=== PATIENT | male | born 1985 | race Caucasian/White ===

== ENCOUNTER 2022-12-12 12:56 | Inpatient (IN) ==
[2022-12-12] MEDS ORDERED: SODIUM CHLORIDE 0.9% 1000ML 1,000 ML IV STA (13:10)
[2022-12-12] MEDS ORDERED: HYDROmorphone INJ 0.5 MG/0.5 ML SYR IV PRN ×3 (13:10→18:57)
[2022-12-12] MEDS ORDERED: ONDANSETRON INJ 2 MG/ML 2 ML VIAL IV STA (13:10)
--- NOTE | 2022-12-12 13:21 | Emergency Department Note ---
Impression & Plan Diverticulitis, Large bowel obstruction ED Provider Note NAME: ISRAEL MICHELLE AGE: 37 SEX: M : 1985 ARRIVES VIA: Walk-In INFORMANT: Patient, ED PROVIDER(S): Rajendra Conrad DO CHIEF COMPLAINT: Abdominal pain HPI: Is a 37-year-old male who presented to the emergency department for an evaluation of abdominal pain. The patient describes epigastric and supraumbilical abdominal pain which began over the last 24 hours. He states mey t he started having symptoms early this morning. The patient has not been seen by provider prior to coming emergency department today he states the pain is slowly building. He has noticed some constipation. He also had some dark emesis which he thought was bile green. He denies having any rectal bleeding. He denies having any black stool. He denies having any fever. He denies having any back pain or hematuria. ROS: See above HPI for pertinent positives & negatives. A total of 10 systems reviewed and were otherwise negative. PAST MEDICAL HISTORY: See Below PAST SURGICAL HISTORY: See Below FAMILY HISTORY: See Below SOCIAL HISTORY: See Below HOME MEDICATIONS: See Below ALLERGIES: See Below VITALS: See Below PHYSICAL EXAMINATION: GENERAL: The patient is awake and alert. The patient is very anxious and appears to be uncomfortable. EYES: The conjunctivae are clear. The pupils are round and reactive. EARS, NOSE, MOUTH AND THROAT: The nose is without any evidence of any deformity. NECK: The neck is nontender and supple. RESPIRATORY: Normal respiratory effort is noted there is no evidence of wheezing rhonchi or rales CARDIOVASCULAR: Regular rate and rhythm noted there no murmurs rubs or gallops normal S1 normal S2. GASTROINTESTINAL: The abdomen is distended and diffusely tender. There is no palpable hernia noted in the inguinal region or in the supraumbilical region. MUSCULOSKELETAL/EXTREMITIES: There is no evidence of gross deformity full range of motion is noted in the hips and shoulders. SKIN: There is no obvious evidence of any rash. There are no petechiae, pallor or cyanosis noted. NEUROLOGIC: Patient is awake alert and oriented x3 MEDICAL DECISION MAKING: The patient is a 37-year-old male who presented to the emergency department for an evaluation of abdominal pain. The patient's history and physical exam were consistent with a possible surgical abdomen. For this reason further laboratory and radiographic studies were obtained. The patient was treated with IV fluids and IV pain medication in the emergency department. He was improved on reevaluation but still had significant pain. CT of the abdomen and pelvis appears to be consistent with large bowel obstruction as well as an area that could be consistent with a mass versus diverticulitis with some microperforation. I discussed patient's condition with on-call general surgery. They have agreed to evaluate the patient for further management and recommend the patient be admitted to medicine. I discussed the patient's laboratory and radiographic studies with him. He is not actively vomiting and most of the obstruction appears to be in the large bowel. I am unsure if an NG tube would benefit him but I will defer this decision to surgery. The case was discussed with [facility]. Triage Nursing notes reviewed. Prior medical records reviewed Vital Signs: reviewed and remarkable for initial hypertension. Differential diagnosis: Etiologies such as appendicitis, diverticulitis, obstruction, inflammatory bowel disease, renal colic, PUD, biliary pathology, pancreatitis, mesenteric ischemia, aortic pathology, infections, genitourinary, UTI, perforated viscus, as well as others were entertained. ER treatment provided: See below Diagnostics interpreted by me: ECG: none Cardiac Monitoring: An order was placed for continuous cardiac monitoring. The monitor shows a rate of 110 bpm with sinus tachycardia. Laboratory studies: As stated above and show below. Imaging studies: See below. Radiographic imaging was reviewed by myself Consultation(s): I discussed this case with Gretta who is covering for general surgery. They will evaluate the patient in the emergency department. I discussed this case with Paige who is on for the [facility] hospitalist group. They will evaluate the patient in the emergency department. Past Med/Surg History Medical History Asthma Depression Hypertension Social History Smoking Status: Never smoker Tobacco Type: Cigarettes Hx Substance Use: No Preferred Language: Amharic Communication Ability: Effective Hub Lead Required: No Beliefs That Will Affect Care: None Current Living Situation: Spouse Feels Safe at Home: Yes Safety Concerns: Feels Safe At This Time Assistive Devices: None Allergies Allergies Allergy/AdvReac Type Severity Reaction Status Date / Time Sulfa (Sulfonamide Allergy Redness of Verified 12/12/22 14:49 Antibiotics) Skin Home Meds Home Medications Medication Instructions Recorded Confirmed fexofenadine 180 mg tablet 180 mg PO DAILY 12/12/22 12/12/22 glucosamine 375 ji-iesnsqflq-ozu 1 tab PO DAILY 12/12/22 12/12/22 no1 500 mg-C 15 mg-los 0.5 mg tablet (Gpzfrkvcsfe-Uxavbgedskj-WKE Complex) hydrochlorothiazide 12.5 mg capsule 12.5 mg PO QAM 12/12/22 12/12/22 losartan 100 mg tablet 100 mg PO QAM 12/12/22 12/12/22 magnesium oxide 500 mg tablet 500 mg PO DAILY 12/12/22 12/12/22 montelukast 10 mg tablet 10 mg PO QAM 12/12/22 12/12/22 multivitamin 1 tab PO QAM 12/12/22 12/12/22 sertraline 25 mg tablet 25 mg PO QAM 12/12/22 12/12/22 Results & Data (ED) Vital Signs Vital Signs - 24 hr 12/12/22 13:06 12/12/22 13:34 12/12/22 14:33 Temperature 37.2 C Temperature Source Oral Pulse Rate 120 H 109 H Pulse Rate [Right Finger] 109 H Pulse Rate from SpO2 Sensor Pulse Rhythm [Right Finger] Regular Pulse Strength [Right Finger] Normal Respiratory Rate 16 18 Respiratory Effort / Characteristics Non-Labored Non-Labored Spontaneous Respiratory Depth Normal Normal Respiratory Pattern Regular Blood Pressure 146/100 H Blood Pressure [Right Arm] 168/100 H Blood Pressure Mean 115 Blood Pressure Mean [Right Arm] 122 Blood Pressure Position [Right Arm] Lying Pulse Oximetry 99 98 Oxygen Delivery Method Room Air Room Air Sepsis Recent Fever Within 48 Hours No Sepsis New/Unexplained Change in Mental Status N/A Sepsis Action Taken by Nursing No Action Required 12/12/22 14:45 12/12/22 14:33 12/12/22 14:40 Temperature Temperature Source Pulse Rate 107 H 106 H 108 H Pulse Rate [Right Finger] Pulse Rate from SpO2 Sensor 108 H 105 H Pulse Rhythm [Right Finger] Pulse Strength [Right Finger] Respiratory Rate 21 36 H 31 H Respiratory Effort / Characteristics Respiratory Depth Respiratory Pattern Blood Pressure Blood Pressure [Right Arm] Blood Pressure Mean Blood Pressure Mean [Right Arm] Blood Pressure Position [Right Arm] Pulse Oximetry 96 99 94 Oxygen Delivery Method Sepsis Recent Fever Within 48 Hours Sepsis New/Unexplained Change in Mental Status Sepsis Action Taken by Nursing 12/12/22 14:50 12/12/22 15:00 12/12/22 15:00 Temperature Temperature Source Pulse Rate 109 H 101 H Pulse Rate [Right Finger] Pulse Rate from SpO2 Sensor 107 H 101 H Pulse Rhythm [Right Finger] Pulse Strength [Right Finger] Respiratory Rate 31 H 30 H Respiratory Effort / Characteristics Respiratory Depth Respiratory Pattern Blood Pressure 139/96 Blood Pressure [Right Arm] Blood Pressure Mean 110 Blood Pressure Mean [Right Arm] Blood Pressure Position [Right Arm] Pulse Oximetry 98 96 Oxygen Delivery Method Sepsis Recent Fever Within 48 Hours Sepsis New/Unexplained Change in Mental Status Sepsis Action Taken by Nursing 12/12/22 15:10 12/12/22 15:20 12/12/22 15:30 Temperature Temperature Source Pulse Rate 111 H 115 H Pulse Rate [Right Finger] Pulse Rate from SpO2 Sensor 112 H 112 H Pulse Rhythm [Right Finger] Pulse Strength [Right Finger] Respiratory Rate 22 21 Respiratory Effort / Characteristics Respiratory Depth Respiratory Pattern Blood Pressure 142/94 H Blood Pressure [Right Arm] Blood Pressure Mean 110 Blood Pressure Mean [Right Arm] Blood Pressure Position [Right Arm] Pulse Oximetry 93 97 Oxygen Delivery Method Sepsis Recent Fever Within 48 Hours Sepsis New/Unexplained Change in Mental Status Sepsis Action Taken by Nursing 12/12/22 15:30 12/12/22 15:40 12/12/22 15:50 Temperature Temperature Source Pulse Rate 108 H 111 H 112 H Pulse Rate [Right Finger] Pulse Rate from SpO2 Sensor 110 H 105 H 115 H Pulse Rhythm [Right Finger] Pulse Strength [Right Finger] Respiratory Rate 36 H 18 23 Respiratory Effort / Characteristics Respiratory Depth Respiratory Pattern Blood Pressure Blood Pressure [Right Arm] Blood Pressure Mean Blood Pressure Mean [Right Arm] Blood Pressure Position [Right Arm] Pulse Oximetry 97 94 96 Oxygen Delivery Method Sepsis Recent Fever Within 48 Hours Sepsis New/Unexplained Change in Mental Status Sepsis Action Taken by Residential Medications Current Medication List: was personally reviewed by me Laboratory Data Attestation: I reviewed the patient's lab results. 12/12/22 13:26 12/12/22 13:26 Lab Results 12/12/22 12/12/22 12/12/22 Range/Units 13:26 13:26 13:32 WBC 12.95 H (4.8-10.8) K/ul RBC 5.19 (4.70-6.10) M/uL Hgb 15.9 (14.0-18.0) g/dl POC Hgb 17.3 (14.0-18.0) g/dl Hct 47.4 (42.0-52.0) % POC Hct 51 (42-52) % MCV 91.3 (80.0-100.0) fL MCH 30.6 (25.0-34.0) pg MCHC 33.5 (32.0-36.0) g/dL RDW Std Deviation 45.1 (36.4-46.3) fL RDW Coeff of Zoraida 13.4 (11.5-14.5) % Plt Count 314 (130-400) K/uL MPV 10.9 (9.4-12.4) fL Immature Gran % (Auto) 0.5 % Neut % (Auto) 87.8 % Lymph % (Auto) 5.9 % [place] % (Auto) 5.3 % Eos % (Auto) 0.0 % Baso % (Auto) 0.5 % Neut # (Auto) 11.38 H (1.40-6.50) K/uL Lymph # (Auto) 0.76 L (1.2-3.4) K/uL [place] # (Auto) 0.68 H (0.11-0.59) K/uL Eos # (Auto) 0.00 (0-0.50) K/uL Baso # (Auto) 0.06 (0-0.2) K/uL Immature Gran # (Auto) 0.07 (0.01-0.20) K/uL POC Sodium 135 (135-144) mmol/L Sodium 134 L (136-145) mmol/L POC Potassium 3.6 (3.3-5.0) mmol/L Potassium 3.5 (3.5-5.1) mmol/L POC Chloride 98 L (101-112) mmol/L Chloride 97 L (98-107) mmol/L Carbon Dioxide 25 (21-32) mmol/L POC Total CO2 25 (24-31) mmol/L Anion Gap 12 H (3-11) POC Anion Gap 17.0 (16-25) mmol/L POC BUN 6 L (7-18) mg/dl BUN 7 (6-23) mg/dl Creatinine 0.83 (0.6-1.4) mg/dl POC Creatinine 0.7 (0.6-1.3) mg/dl Est Cr Clr Drug Dosing 170.5 ml/min Est GFR ( Amer) 128.5 ml/min Est GFR (Non-Af Amer) 110.8 ml/min BUN/Creatinine Ratio 8.4 L (10-20) Glucose 108 H (70-99(Fasting)) mg/dl POC Glucose (other) 118 H (70-99) mg/dl Calcium 9.5 (8.6-10.3) mg/dl POC Ioniz Calcium Sebas 1.15 (1.12-1.32) mmol/l Total Bilirubin 0.8 (0.2-1.0) mg/dl AST 24 (13-39) U/L ALT 31 (7-52) U/L Alkaline Phosphatase 83 (34-104) U/L Total Protein 8.4 H (6.0-8.3) gm/dl Albumin 4.5 (3.4-5.0) gm/dl Globulin 3.9 (2.5-4.0) gm/dl Albumin/Globulin Ratio 1.2 (0.9-2) Lipase 27 (11-82) U/L Urine Color Urine Appearance (Clear) Urine pH (4.5-7.5) Ur Specific [place] (1.000-1.030) Urine Protein (Negative) Urine Glucose (UA) (Negative) Urine Ketones (Negative) Urine Blood (Negative) Urine Nitrite (Negative) Urine Bilirubin (Negative) Urine Urobilinogen (Negative) Ur Leukocyte Esterase (Negative) Urine WBC (Auto) (0-5) /hpf Urine RBC (Auto) (0-4) /hpf U Hyaline Cast (Auto) (0-5) /lpf U Epithel Cells (Auto) (0-5) /lpf Urine Bacteria (Auto) (Negative) SARS-CoV-2, RNA, NAAT (NEGATIVE) 12/12/22 12/12/22 Range/Units 14:53 14:54 WBC (4.8-10.8) K/ul RBC (4.70-6.10) M/uL Hgb (14.0-18.0) g/dl POC Hgb (14.0-18.0) g/dl Hct (42.0-52.0) % POC Hct (42-52) % MCV (80.0-100.0) fL MCH (25.0-34.0) pg MCHC (32.0-36.0) g/dL RDW Std Deviation (36.4-46.3) fL RDW Coeff of Zoraida (11.5-14.5) % Plt Count (130-400) K/uL MPV (9.4-12.4) fL Immature Gran % (Auto) % Neut % (Auto) % Lymph % (Auto) % [place] % (Auto) % Eos % (Auto) % Baso % (Auto) % Neut # (Auto) (1.40-6.50) K/uL Lymph # (Auto) (1.2-3.4) K/uL [place] # (Auto) (0.11-0.59) K/uL Eos # (Auto) (0-0.50) K/uL Baso # (Auto) (0-0.2) K/uL Immature Gran # (Auto) (0.01-0.20) K/uL POC Sodium (135-144) mmol/L Sodium (136-145) mmol/L POC Potassium (3.3-5.0) mmol/L Potassium (3.5-5.1) mmol/L POC Chloride (101-112) mmol/L Chloride (98-107) mmol/L Carbon Dioxide (21-32) mmol/L POC Total CO2 (24-31) mmol/L Anion Gap (3-11) POC Anion Gap (16-25) mmol/L POC BUN (7-18) mg/dl BUN (6-23) mg/dl Creatinine (0.6-1.4) mg/dl POC Creatinine (0.6-1.3) mg/dl Est Cr Clr Drug Dosing ml/min Est GFR ( Amer) ml/min Est GFR (Non-Af Amer) ml/min BUN/Creatinine Ratio (10-20) Glucose (70-99(Fasting)) mg/dl POC Glucose (other) (70-99) mg/dl Calcium (8.6-10.3) mg/dl POC Ioniz Calcium [place]bas (1.12-1.32) mmol/l Total Bilirubin (0.2-1.0) mg/dl AST (13-39) U/L ALT (7-52) U/L Alkaline Phosphatase (34-104) U/L Total Protein (6.0-8.3) gm/dl Albumin (3.4-5.0) gm/dl Globulin (2.5-4.0) gm/dl Albumin/Globulin Ratio (0.9-2) Lipase (11-82) U/L Urine Color Yellow Urine Appearance Clear (Clear) Urine pH 6.5 (4.5-7.5) Ur Specific [place] 1.016 (1.000-1.030) Urine Protein Negative (Negative) Urine Glucose (UA) Negative (Negative) Urine Ketones Trace H (Negative) Urine Blood Negative (Negative) Urine Nitrite Negative (Negative) Urine Bilirubin Negative (Negative) Urine Urobilinogen Negative (Negative) Ur Leukocyte Esterase 1+ H (Negative) Urine WBC (Auto) 5-10 H (0-5) /hpf Urine RBC (Auto) 0-4 (0-4) /hpf U Hyaline Cast (Auto) 0 (0-5) /lpf U Epithel Cells (Auto) 0-5 (0-5) /lpf Urine Bacteria (Auto) Negative (Negative) SARS-CoV-2, RNA, NAAT NEGATIVE (NEGATIVE) Administered Medications Hydromorphone HCl (Hydromorphone Inj 1 Mg/Ml Syringe) 1 mg IV Q1H PRN PRN Reason: severe pain Stop: 12/26/22 18:46 Last Admin: 12/13/22 06:27 Dose: 1 mg Documented By: Admin: 12/13/22 03:47 Dose: 1 mg Documented By: Admin: 12/13/22 00:24 Dose: 1 mg Documented By: Admin: 12/12/22 21:29 Dose: 1 mg Documented By: Admin: 12/12/22 19:06 Dose: 1 mg Documented By: KASANDRA Piperacillin Sod/Tazobactam (Sod 4.5 gm/ Dextrose) 120 mls @ 30 mls/hr IV Q8H [facility]; Protocol Stop: 12/22/22 22:14 Last Admin: 12/13/22 06:27 Dose: 30 mls/hr Documented By: Infusion: 12/13/22 03:11 Dose: 0 mls/hr Documented By: Admin: 12/12/22 23:06 Dose: 30 mls/hr Documented By: DENY Ondansetron HCl (Ondansetron Inj 2 Mg/Ml 2 Ml Vial) 4 mg IV Q6H PRN PRN Reason: Nausea Stop: 01/11/23 15:57 Last Admin: 12/13/22 00:24 Dose: 4 mg Documented By: DENY Discontinued Medications Hydromorphone HCl (Hydromorphone Inj 0.5 Mg/0.5 Ml Syr) 0.5 mg IV Q15M PRN PRN Reason: Pain Stop: 12/26/22 13:09 Last Admin: 12/12/22 13:38 Dose: 0.5 mg Documented By: RECORDER OF DEEDS Hydromorphone HCl (Hydromorphone Inj 1 Mg/Ml Syringe) 1 mg IV Q15M PRN PRN Reason: Pain Stop: 12/26/22 14:28 Last Admin: 12/12/22 16:47 Dose: 1 mg Documented By: RECORDER OF DEEDS Admin: 12/12/22 15:31 Dose: 1 mg Documented By: RECORDER OF DEEDS Admin: 12/12/22 14:47 Dose: 1 mg Documented By: RECORDER OF DEEDS Sodium Chloride (Nss 1000ml) 1,000 mls @ 999 mls/hr IV .Q1H1M STA Stop: 12/12/22 14:10 Last Infusion: 12/12/22 15:35 Dose: 0 mls/hr Documented By: RECORDER OF DEEDS Admin: 12/12/22 13:36 Dose: 999 mls/hr Documented By: RECORDER OF DEEDS Piperacillin Sod/Tazobactam Sod (Zosyn) 4.5 gm in 120 mls @ 240 mls/hr IV NOW ONE Stop: 12/12/22 14:59 Last Infusion: 12/12/22 15:35 Dose: 0 mls/hr Documented By: RECORDER OF DEEDS Admin: 12/12/22 14:47 Dose: 240 mls/hr Documented By: RECORDER OF DEEDS Acetaminophen (Ofirmev) 1,000 mg in 100 mls @ 400 mls/hr IV Q8H SEGUNDO Stop: 12/15/22 18:59 Last Infusion: 12/12/22 19:34 Dose: 0 mls/hr Documented By: RECORDER OF DEEDS Admin: 12/12/22 19:07 Dose: 400 mls/hr Documented By: RECORDER OF DEEDS Ioversol (Optiray 320 100ml) 89 ml IV ONCE ONE Stop: 12/12/22 13:56 Last Admin: 12/12/22 13:55 Dose: 89 ml Documented By: LORENZA Ondansetron HCl (Ondansetron Inj 2 Mg/Ml 2 Ml Vial) 4 mg IV NOW STA Stop: 12/12/22 13:11 Last Admin: 12/12/22 13:37 Dose: 4 mg Documented By: KASANDRA Imaging Data Attestation: I personally reviewed and interpreted this imaging study as foll ows: My Impression: CT of the abdomen and pelvis was obtained in the emergency department. My interpretation is dilated large bowel, no free air, an area in the descending colon consistent with inflammation, final report below. Radiologist's Impression: Abdomen/Pelvis CT 12/12/22 13:[address] WITH IV CONTRAST CT DOSE: 1256.90 mGy.cm HISTORY: mid abd pain TECHNIQUE: Multiaxial CT images of the abdomen and pelvis were performed following the use of intravenous contrast. A dose lowering technique was utilized adhering to the principles of ALARA. COMPARISON STUDY: None. FINDINGS: A few bibasilar linear densities consistent with subsegmental atelectasis. A 1 cm sclerotic focus within the right femoral neck favors a bone island. Otherwise, no suspicious lytic or blastic osseous lesions. There is slight elevation left hemidiaphragm. Mild hepatic steatosis. No hepatic or splenic masses. The gallbladder, pancreas, adrenal glands, and kidneys are unremarkable. No hydronephrosis. No retroperitoneal lymphadenopathy. Normal caliber abdominal aorta. The main portal vein is patent. The bladder is unremarkable. No pelvic free fluid or pelvic lymphadenopathy. Multiple colonic diverticula. Focal thickening and narrowing within the distal descending colon which measures approximately 7 cm in length. There is pericolonic inflammatory change/soft tissue at this focal area of narrowing and a possible punctate focus of extraluminal gas on image 231.Proximal to this long segment of narrowing, the large bowel is distended and filled with gas and fluid. Therefore, this is consistent with a transition point for a large bowel obstruction. Therefore, this 7 cm segment of thickening/narrowing within the distal descending colon is concerning for a colonic mass. An acute on chronic diverticulitis could also have a similar appearance. The punctate focus of intraluminal gas likely represents microperforation. There is also a questionable 1.3 cm pericolonic abscess on image 262 adjacent to the thickened descending colon. Normal appendix. The cecum is distended up to 10 cm. The small bowel loops are normal in course and caliber. IMPRESSION: 1. Focal area of thickening/narrowing within a 7 cm segment of the distal descending colon with pericolonic inflammatory change and soft tissue thickening. This results in a large bowel obstruction and is therefore concerning for a colonic mass. An acute on chronic diverticulitis could also result in a similar appearance. Therefore, endoscopy recommended for further evaluation. 2. There is a punctate focus of pericolonic gas and a possible 1.3 cm pericolonic abscess adjacent to the thickened distal descending colon. Therefor e, this raises the possibility of microperforation. 3. Hepatic steatosis. No definite hepatic lesions. 4. Normal appendix. ACT 112: Negative or not required by law. Electronically signed by: Ralph Camarillo M.D. 12/12/2022 3:12 PM Discharge Plan Visit Data Chief Complaint: Abdominal Pain Stated Complaint: ABDOMINAL PAIN ED Provider: Rajendra Conrad Discharge Problem: Diverticulitis, Large bowel obstruction Patient Disposition: Admitted As Inpatient Discharge Instructions Interventions: ED Discharge Assessment Last Done: 12/12/22 18:08
[2022-12-12 13:45] LABS: iSTAT Creatinine 0.7 mg/dl (0.6-1.3); iSTAT Hemoglobin 17.3 g/dl (14.0-18.0); iSTAT Ionized Calcium 1.15 mmol/l (1.12-1.32); iSTAT Potassium 3.6 mmol/L (3.3-5.0)
[2022-12-12] MEDS ORDERED: OPTIRAY 320 100ml IV ONE (13:55)
[2022-12-12 14:00] LABS: Basophils # (auto) 0.06 K/uL (0-0.2); Basophils % (auto) 0.5 %; Hematocrit (blood only) 47.4 % (42.0-52.0); Hemoglobin 15.9 g/dl (14.0-18.0); Immature Granulocytes # (auto) 0.07 K/uL (0.01-0.20); Immature Granulocytes % (auto) 0.5 %; Lymphocytes # (auto) 0.76 K/uL (1.2-3.4); Lymphocytes % (auto) 5.9 %; Mean Corpuscular Hemoglobin 30.6 pg (25.0-34.0); Mean Corpuscular Hgb Conc 33.5 g/dL (32.0-36.0); Mean Corpuscular Volume 91.3 fL (80.0-100.0); Mean Platelet Volume 10.9 fL (9.4-12.4); Monocytes # (auto) 0.68 K/uL (0.11-0.59); Monocytes % (auto) 5.3 %; Neutrophils # (auto) 11.38 K/uL (1.40-6.50); Neutrophils % (auto) 87.8 %; Platelet Count 314 K/uL (130-400); RDW Coefficient of Variation 13.4 % (11.5-14.5); RDW Standard Deviation 45.1 fL (36.4-46.3); Red Blood Count 5.19 M/uL (4.70-6.10); White Blood Count 12.95 K/ul (4.8-10.8)
[2022-12-12 14:16] LABS: Albumin Globulin Ratio 1.2 (0.9-2); Albumin Level 4.5 gm/dl (3.4-5.0); BUN Creatinine Ratio 8.4 (10-20); Bilirubin,Total 0.8 mg/dl (0.2-1.0); Calcium 9.5 mg/dl (8.6-10.3); Creatinine Clr Calc Pharmacy 170.5 ml/min; Est GFR (African American) 128.5 ml/min; Est GFR (Non-African American) 110.8 ml/min; Globulin 3.9 gm/dl (2.5-4.0); Potassium 3.5 mmol/L (3.5-5.1); Total Protein 8.4 gm/dl (6.0-8.3)
[2022-12-12] MEDS ORDERED: PIPERACILLIN/TAZOBACTAM 4.5 GM/120 ML BAG IV ONE (14:30)
[2022-12-12] MEDS: HYDROmorphone INJ 1 MG/ML SYRINGE IV PRN ×5 (14:47→21:29)
--- NOTE | 2022-12-12 15:13 | CT Scan Report ---
ABDOMEN AND PELVIS CT WITH IV CONTRAST CT DOSE: 1256.90 mGy.cm HISTORY: mid abd pain TECHNIQUE: Multiaxial CT images of the abdomen and pelvis were performed following the use of intrave nous contrast. A dose lowering technique was utilized adhering to the principles of ALARA. COMPARISON STUDY: None. FINDINGS: A few bibasilar linear densities consistent with subsegmental atelectasis. A 1 cm sclerotic focus within the right femoral neck favors a bone island. Otherwise, no suspicious lytic or blastic osseous lesions. There is slight elevation left hemidiaphragm. Mild hepatic steatosis. No hepatic or splenic masses. The gallbladder, pancreas, adrenal glands, and kidneys are unremarkable. No hydroneph rosis. No retroperitoneal lymphadenopathy. Normal caliber abdominal aorta. The main portal vein is pa tent. The bladder is unremarkable. No pelvic free fluid or pelvic lymphadenopathy. Multiple colonic d iverticula. Focal thickening and narrowing within the distal descending colon which measures approxim ately 7 cm in length. There is pericolonic inflammatory change/soft tissue at this focal area of narr owing and a possible punctate focus of extraluminal gas on image 231.Proximal to this long segment of narrowing, the large bowel is distended and filled with gas and fluid. Therefore, this is consistent with a transition point for a large bowel obstruction. Therefore, this 7 cm segment of thickening/na rrowing within the distal descending colon is concerning for a colonic mass. An acute on chronic dive rticulitis could also have a similar appearance. The punctate focus of intraluminal gas likely repres ents microperforation. There is also a questionable 1.3 cm pericolonic abscess on image 262 adjacent to the thickened descending colon. Normal appendix. The cecum is distended up to 10 cm. The small bow el loops are normal in course and caliber. IMPRESSION: 1. Focal area of thickening/narrowing within a 7 cm segment of the distal descending colon with peric olonic inflammatory change and soft tissue thickening. This results in a large bowel obstruction and is therefore concerning for a colonic mass. An acute on chronic diverticulitis could also result in a similar appearance. Therefore, endoscopy recommended for further evaluation. 2. There is a punctate focus of pericolonic gas and a possible 1.3 cm pericolonic abscess adjacent to the thickened distal descending colon. Therefore, this raises the possibility of microperforation. 3. Hepatic steatosis. No definite hepatic lesions. 4. Normal appendix. ACT 112: Negative or not required by law. Electronically signed by: Ralph Camarillo M.D. 12/12/2022 3:12 PM
--- NOTE | 2022-12-12 15:57 | Surgery Consultation ---
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 In the ER today a CT a/p was obtained that revealed "an area of thickening/narrowing within a 7 cm segment of the distal descending colon with pericolonic inflammatory change and soft tissue thickening. This results in a large bowel obstruction and is therefore concerning for a colonic mass vs an acute on chronic diverticulitis appearance. There is also a punctate focus of pericolonic gas with concern for a 1.3 cm pericolonic abscess raising the possibility of microperforation." WBC 12. Vitals show tachycardia to 110-120s, afebrile with stable blood pressures. On exam abdomen is soft, distended, with generalized discomfort to palpation worse in mid/upper abd and llq. Would like to give patient a trial of conservative management and supportive care with IVF hydration, IV abx, and bowel rest. GI may be on board given concern for colonic mass and large bowel obstruction picture for their input. We will keep a close eye on patient should he have any changes in his clinical status. 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 Patient reports the pain started in his upper abdomen acutely at 6:30 this AM. This was associated with bouts of nausea/vomiting. At its worst, the pain rates a 10/10 and is currently a 7/10 after some pain meds in the ER. Pain is starting to migrate some to the LLQ. He reports a history of on and off pain in the LLQ over the last 2 years he has not sought medical attention for. In the ER today a CT a/p was obtained that revealed "an area of thickening/narrowing within a 7 cm segment of the distal descending colon with pericolonic inflammatory change and soft tissue thic kening. This results in a large bowel obstruction and is therefore concerning for a colonic mass vs an acute on chronic diverticulitis appearance. There is also a punctate focus of pericolonic gas with concern for a 1.3 cm pericolonic abscess raising the possibility of microperforation." Patient states he never had a colonoscopy or an episode of diverticulitis before. No personal or family history of colon ca. His mother and father both had diverticulitis and he believes one of them had surgical resection in the past. He last had some water around 12:30 this AM and last ate pizza for dinner yesterday night. He is not passing much flatus and last BM was yesterday and was normal. He has no prior abdominal surgical history. Allergies Allergy/AdvReac Type Severity Reaction Status Date / Time Sulfa (Sulfonamide Allergy Redness of Verified 12/12/22 14:49 Antibiotics) Skin Home Medications Medication Instructions Recorded Confirmed Type fexofenadine 180 mg tablet 180 mg PO DAILY 12/12/22 12/12/22 History glucosamine 375 bj-sgrifokow-fkt 1 tab PO DAILY 12/12/22 12/12/22 History no1 500 mg-C 15 mg-los 0.5 mg tablet (Sonyubsasmf-Tbfshyevhot-XPR Complex) hydrochlorothiazide 12.5 mg capsule 12.5 mg PO QAM 12/12/22 12/12/22 History losartan 100 mg tablet 100 mg PO QAM 12/12/22 12/12/22 History magnesium oxide 500 mg tablet 500 mg PO DAILY 12/12/22 12/12/22 History montelukast 10 mg tablet 10 mg PO QAM 12/12/22 12/12/22 History multivitamin 1 tab PO QAM 12/12/22 12/12/22 History sertraline 25 mg tablet 25 mg PO QAM 12/12/22 12/12/22 History Patient History Medical History Asthma Depression Hypertension Social History Smoking Status: Former smoker Tobacco Type: Cigarettes Feels Safe at Home: Yes Review of Systems Constitutional: + sweats; no fever and no chills Respiratory: no dyspnea Cardiovascular: no chest pain Gastrointestinal: + abdominal pain, + bloating, + nausea and + vomiting Physical Exam Physical Exam: awake/alert Constitutional: mildly ill appearing Respiratory: normal respiratory effort; no respiratory distress Cardiovascular: Rate/Rhythm: + tachycardic Gastrointestinal (Abdomen): Inspection/Auscultation: + abdomen distended Percussion/Palpation: + abdomen tender (generalized discomfort but worse in supra umbilical and LLQ regions) and abdomen soft; no guarding and abdomen not rigid Results & Data Vital Signs (Past 12 Hours) Vital Signs Temp Pulse Pulse Resp BP BP Pulse Ox 12/12/22 14:45 107 H 21 96 12/12/22 14:33 109 H 12/12/22 13:34 109 H 18 168/100 H 98 12/12/22 13:06 37.2 C 120 H 16 146/100 H 99 O2 Del Method 12/12/22 14:45 12/12/22 14:33 12/12/22 13:34 Room Air 12/12/22 13:06 Room Air Diagnostic Findings ABDOMEN AND PELVIS CT WITH IV CONTRAST CT DOSE: 1256.90 mGy.cm HISTORY: mid abd pain TECHNIQUE: Multiaxial CT images of the abdomen and pelvis were performed following the use of intravenous contrast. A dose lowering technique was utilized adhering to the principles of ALARA. COMPARISON STUDY: None. FINDINGS: A few bibasilar linear densities consistent with subsegmental atelectasis. A 1 cm sclerotic focus within the right femoral neck favors a bone island. Otherwise, no suspicious lytic or blastic osseous lesions. There is slight elevation left hemidiaphragm. Mild hepatic steatosis. No hepatic or splenic masses. The gallbladder, pancreas, adrenal glands, and kidneys are unremarkable. No hydronephrosis. No retroperitoneal lymphadenopathy. Normal caliber abdominal aorta. The main portal vein is patent. The bladder is unremarkable. No pelvic free fluid or pelvic lymphadenopathy. Multiple colonic diverticula. Focal thickening and narrowing within the distal descending colon which measures approximately 7 cm in length. There is pericolonic inflammatory change/soft tissue at this focal area of narrowing and a possible punctate focus of extraluminal gas on image 231.Proximal to this long segment of narrowing, the large bowel is distended and filled with gas and fluid. Therefore, this is consistent with a transition point for a large bowel obstruction. Therefore, this 7 cm segment of thickening/narrowing within the distal descending colon is concerning for a colonic mass. An acute on chronic diverticulitis could also have a similar appearance. The punctate focus of intraluminal gas likely represents microperforation. There is also a questionable 1.3 cm pericolonic abscess on image 262 adjacent to the thickened descending colon. Normal appendix . The cecum is distended up to 10 cm. The small bowel loops are normal in course and caliber. IMPRESSION: 1. Focal area of thickening/narrowing within a 7 cm segment of the distal descending colon with pericolonic inflammatory change and soft tissue thickening. This results in a large bowel obstruction and is therefore concerning for a colonic mass. An acute on chronic diverticulitis could also result in a similar appearance. Therefore, endoscopy recommended for further evaluation. 2. There is a punctate focus of pericolonic gas and a possible 1.3 cm pericolonic abscess adjacent to the thickened distal descending colon. Therefore, this raises the possibility of microperforation. 3. Hepatic steatosis. No definite hepatic lesions. 4. Normal appendix. ACT 112: Negative or not required by law. Electronically signed by: Ralph Camarillo M.D. 12/12/2022 3:12 PM PG Care Time/CCT Total # of Minutes Spent Total Time Spent with Patient: Total time spent is greater than 50% in coordination of care (as documented) at patient's floor/unit and/or counseling patient: Coding Level of Care Code 82498 IN/OBS CONSULT LVL 4,60M Diagnoses Diverticulitis K57.92 Large bowel obstruction K56.609
[2022-12-12 15:58] LABS: Appearance Urine Clear (Clear); Bacteria Urine Automated Negative (Negative); Bilirubin Urine Negative (Negative); Blood Urine Negative (Negative); Cast Urine Automated 0 /lpf (0-5); Color Urine Yellow; Epithelial Cell Urine Auto 0-5 /lpf (0-5); Glucose Urine UA Negative (Negative); Ketones Urine Trace (Negative); Leukocyte Esterase Urine 1+ (Negative); Nitrite Urine Negative (Negative); Protein Urine Negative (Negative); RBC Urine Automated 0-4 /hpf (0-4); Specific Gravity Urine 1.016 (1.000-1.030); Urobilinogen Urine Negative (Negative); pH Urine 6.5 (4.5-7.5)
[2022-12-12] MEDS ORDERED: MAGNESIUM HYDROXIDE SUSP 30 ML UDC PO PRN (15:58)
[2022-12-12] MEDS ORDERED: POLYETHYLENE (MIRALAX) 17 GM PACK PO PRN (15:58)
[2022-12-12] MEDS ORDERED: ALUMINUM/MAGNESIUM SUSP 30 ML UDC PO PRN (15:58)
[2022-12-12] MEDS ORDERED: ACETAMINOPHEN 325 MG TAB PO PRN (15:58)
[2022-12-12] MEDS ORDERED: ONDANSETRON INJ 2 MG/ML 2 ML VIAL IV PRN (15:58)
--- NOTE | 2022-12-12 16:06 | History & Physical Report ---
Date of Service December 12, 2022 Assessment & Plan (1) Large bowel obstruction: (2) Diverticulitis: (3) Hypertension: (4) Depression: (5) Asthma: Plan 37 year old presents to the ED with acute abdominal pain that started this AM with emesis x1; abdomen/pelvic CT revealed large bowel obstruction with concerns for colonic mass; 1.3 cm microperforation, along with acute on chronic diverticulitis. Empirically treat with IV abx. GI and general surgery consults pending. NPO for bowel rest. Additional PMH Large Bowel Obstruction: Diverticulitis: Abdominal/Pelvis CT: 7 cm segment of the distal descending colon with pericolonic inflammatory change and soft tissue thickening. Large bowel obstruction and concern for colonic mass. Acute on chronic diverticulitis could also result in a similar appearance. Endoscopy recommended. Possible 1.3 cm pericolonic abscess adjacent to the thickened distal descending colon. Possibility of microperforation. General surgery consultation placed GI consult placed Empirically treat with Zosyn; readjust as necessary by general surgery or based on cultures pain control with Dilaudid; reassess pain control in AM. UA pending HTN: Takes Losartan and HCTZ; continue BP elevated in ED: suspect related to pain Asthma: Takes Singulair and Alexandra; continue Depression: Takes Sertraline; continue Disposition: PCP: Dr. Hall Code Status: Full Code VTE Prophylaxis: Teds/SCDs for now I spent a total of 87 minutes coordinating, documenting, and providing care for this patient excluding time spent in the performance of separately billed services. All of the aforementioned completed while collaborating with the assigned attending physician for a full treatment plan. Please see their addendum for further details. History of Present Illness Chief Complaint: abdominal pain Primary Care Provider: Arthur Farris MD Mr. Pierson is a 37-year-old male that presented to the [facility] after experiencing an acute onset of abdominal pain that started acutely this morning at 0600 following abdominal distention. Around 1230 he started vomiting bile. He did not have a bowel movement today. LBM yesterday. Abdominal and pelvic CT revealed large 7 cm distal descending large bowel obstruction; with possible colonic mass. Additionally a 1.3 cm pericolonic abscess adjacent to the thickened distal descending colon suggesting microperforation. Discussed with general surgery who will evaluate him. Discussed with GI as well ; given the inflammation with microperforation suspect GI eval will be necessary with large bowel obstruction once patient has received abx and bowel rest. Pt father and mother both have had diverticulitis. Pt has had wisdom teeth removal with no anesthesia complications. Additional PMH includes HTN (On Losartan and HCTZ), asthma, and depression. Patient denies COSTELLO, dizziness, visual or auditory changes, urinary changes, appetite changes, recent falls or trauma. Patient sitting upright in his hospital bed in apparent distress with diaphoresis. He is tachycardic and hypoxic; placed on 2LNC with SPO2 improvement. Patient will be admitted for further evaluation and management. Please see A/P for further details. Allergies Allergy/AdvReac Type Severity Reaction Status Date / Time Sulfa (Sulfonamide Allergy Redness of Verified 12/12/22 14:49 Antibiotics) Skin Home Medications Medication Instructions Recorded Confirmed Type fexofenadine 180 mg tablet 180 mg PO DAILY 12/12/22 12/12/22 History glucosamine 375 hk-wgnljkkam-lsw 1 tab PO DAILY 12/12/22 12/12/22 History no1 500 mg-C 15 mg-los 0.5 mg tablet (Smtzfdwovau-Mgyskzkcjhe-SVN Complex) hydrochlorothiazide 12.5 mg capsule 12.5 mg PO QAM 12/12/22 12/12/22 History losartan 100 mg tablet 100 mg PO QAM 12/12/22 12/12/22 History magnesium oxide 500 mg tablet 500 mg PO DAILY 12/12/22 12/12/22 History montelukast 10 mg tablet 10 mg PO QAM 12/12/22 12/12/22 History multivitamin 1 tab PO QAM 12/12/22 12/12/22 History sertraline 25 mg tablet 25 mg PO QAM 12/12/22 12/12/22 History Past Med/Surg History Medical History Asthma Depression Hypertension Social History Smoking Status: Never smoker Tobacco Type: Cigarettes Hx Substance Use: No Preferred Language: Kinyarwanda Communication Ability: Effective Scrap Worker Required: No Beliefs That Will Affect Care: None Current Living Situation: Spouse Feels Safe at Home: Yes Safety Concerns: Feels Safe At This Time Assistive Devices: None Review of Systems Review of Systems: Neuro: (-) Falls, trauma, slurred speech HEENT: (-) COSTELLO, dizziness, dysphagia, visual or auditory changes CV: (-) CP, palpitations, swelling Resp: (-) SOB GI: (-) appetite changes, (+) N/V (-) diarrhea, (-) bowel changes : (-) urinary changes Skin: (-) rashes Psych: (-) anxiety, depression Physical Exam Physical Exam: Neuro: AAOx4, PERRLA, no aphagia, memory changes, CNII-XII grossly intact HEENT: head normocephalic, moist mucus membranes CV: S1/S2, (-) M/G/R, (-) edema, cap refill < 3 seconds euvolemic on exam Resp: Lungs CTA in all [place]. On 2LNC GI: Abdomen distended and tender LLQ. Ax4 bowel sounds, (-) CVA tenderness Musculoskeletal: 5/5 B/L UE strength, 5/5 B/L LE strength. No gait disturbance Skin: (-) rashes , (+) erythema on chest from pruritis (not new) Psych: euthymic mood Results & Data Results & Data Vital Signs (Past 12 Hours) Vital Signs Temp Pulse Pulse Resp BP BP Pulse Ox 12/12/22 15:50 112 H 23 96 12/12/22 15:40 111 H 18 94 12/12/22 15:30 108 H 36 H 97 12/12/22 15:30 142/94 H 12/12/22 15:20 115 H 21 97 12/12/22 15:10 111 H 22 93 12/12/22 15:00 101 H 30 H 96 12/12/22 15:00 139/96 12/12/22 14:50 109 H 31 H 98 12/12/22 14:40 108 H 31 H 94 12/12/22 14:33 106 H 36 H 99 12/12/22 14:45 107 H 21 96 12/12/22 14:33 109 H 12/12/22 13:34 109 H 18 168/100 H 98 12/12/22 13:06 37.2 C 120 H 16 146/100 H 99 O2 Del Method 12/12/22 15:50 12/12/22 15:40 12/12/22 15:30 12/12/22 15:30 12/12/22 15:20 12/12/22 15:10 12/12/22 15:00 12/12/22 15:00 12/12/22 14:50 12/12/22 14:40 12/12/22 14:33 12/12/22 14:45 12/12/22 14:33 12/12/22 13:34 Room Air 12/12/22 13:06 Room Air Laboratory Results Short CBC 12/12/22 Range/Units 13:26 WBC 12.95 H (4.8-10.8) K/ul Hgb 15.9 (14.0-18.0) g/dl Hct 47.4 (42.0-52.0) % Plt Count 314 (130-400) K/uL BMP 12/12/22 13:26 Sodium 134 L Potassium 3.5 Chloride 97 L Carbon Dioxide 25 BUN 7 Creatinine 0.83 Glucose 108 H Calcium 9.5 Liver Function 12/12/22 Range/Units 13:26 Total Bilirubin 0.8 (0.2-1.0) mg/dl AST 24 (13-39) U/L ALT 31 (7-52) U/L Alkaline Phosphatase 83 (34-104) U/L Albumin 4.5 (3.4-5.0) gm/dl Urine 12/12/22 Range/Units 14:54 Urine Color Yellow Urine Appearance Clear (Clear) Urine pH 6.5 (4.5-7.5) Ur Specific [place] 1.016 (1.000-1.030) Urine Protein Negative (Negative) Urine Glucose (UA) Negative (Negative) Diagnostic Findings Abdomen/Pelvis CT 12/12/22 13:[address] WITH IV CONTRAST CT DOSE: 1256.90 mGy.cm HISTORY: mid abd pain TECHNIQUE: Multiaxial CT images of the abdomen and pelvis were performed following the use of intravenous contrast. A dose lowering technique was utilized adhering to the principles of ALARA. COMPARISON STUDY: None. FINDINGS: A few bibasilar linear densities consistent with subsegmental atelectasis. A 1 cm sclerotic focus within the right femoral neck favors a bone island. Otherwise, no suspicious lytic or blastic osseous lesions. There is slight elevation left hemidiaphragm. Mild hepatic steatosis. No hepatic or splenic masses. The gallbladder, pancreas, adrenal glands, and kidneys are unremarkable. No hydronephrosis. No retroperitoneal lymphadenopathy. Normal caliber abdominal aorta. The main portal vein is patent. The bladder is unremarkable. No pelvic free fluid or pelvic lymphadenopathy. Multiple colonic diverticula. Focal thickening and narrowing within the distal descending colon which measures approximately 7 cm in length. There is pericolonic inflammatory change/soft tissue at this focal area of narrowing and a possible punctate focus of extraluminal gas on image 231.Proximal to this long segment of narrowing, the large bowel is distended and filled with gas and fluid. Therefore, this is consistent with a transition point for a large bowel obstruction. Therefore, this 7 cm segment of thickening/narrowing within the distal descending colon is concerning for a colonic mass. An acute on chronic diverticulitis could also have a similar appearance. The punctate focus of intraluminal gas likely represents microperforation. There is also a questionable 1.3 cm pericolonic abscess on image 262 adjacent to the thickened descending colon. Normal appendix. The cecum is distended up to 10 cm. The small bowel loops are normal in course and caliber. IMPRESSION: 1. Focal area of thickening/narrowing within a 7 cm segment of the distal descending colon with pericolonic inflammatory change and soft tissue th ickening. This results in a large bowel obstruction and is therefore concerning for a colonic mass. An acute on chronic diverticulitis could also result in a similar appearance. Therefore, endoscopy recommended for further evaluation. 2. There is a punctate focus of pericolonic gas and a possible 1.3 cm pericolonic abscess adjacent to the thickened distal descending colon. Therefore, this raises the possibility of microperforation. 3. Hepatic steatosis. No definite hepatic lesions. 4. Normal appendix. ACT 112: Negative or not required by law. Electronically signed by: Ralph Camarillo M.D. 12/12/2022 3:12 PM Code Status & VTE Plan Code Status Full Code in the event of cardiac or respiratory arrest VTE Prophylaxis Plan VTE Prophylaxis will be ordered: Yes Supervising Physician Co-Signing Physician Notes Patient was seen and examined independently. Chart reviewed. Case discussed with JENNY
[2022-12-12] MEDS ORDERED: ACETAMINOPHEN 1,000 MG/100 ML VIAL IV SCH (19:00)
[2022-12-12] MEDS ORDERED: hydrALAZINE HCL 20 MG/ML VIAL IV PRN (22:03)
[2022-12-12] MEDS: PIPERACILLIN/TAZOBACTAM 4.5 GM in DEXTROSE 5% 100 ML IV SCH (23:06)
[2022-12-13] MEDS: HYDROmorphone INJ 1 MG/ML SYRINGE IV PRN ×3 (00:24→06:27)
[2022-12-13] MEDS: PIPERACILLIN/TAZOBACTAM 4.5 GM in DEXTROSE 5% 100 ML IV SCH ×3 (06:27→22:14)
[2022-12-13 06:48] LABS: Hemoglobin 14.6 g/dl (14.0-18.0); Mean Corpuscular Hgb Conc 33.2 g/dL (32.0-36.0); Mean Corpuscular Volume 93.4 fL (80.0-100.0); Mean Platelet Volume 10.7 fL (9.4-12.4); Platelet Count 267 K/uL (130-400); RDW Coefficient of Variation 13.6 % (11.5-14.5); RDW Standard Deviation 46.5 fL (36.4-46.3); Red Blood Count 4.71 M/uL (4.70-6.10); White Blood Count 7.77 K/ul (4.8-10.8)
[2022-12-13 07:00] LABS: Albumin Globulin Ratio 1.1 (0.9-2); BUN Creatinine Ratio 10.1 (10-20); Bilirubin,Total 0.9 mg/dl (0.2-1.0); Calcium 9.4 mg/dl (8.6-10.3); Creatinine Clr Calc Pharmacy 158.2 ml/min; Est GFR (African American) 124.8 ml/min; Est GFR (Non-African American) 107.7 ml/min; Globulin 3.5 gm/dl (2.5-4.0); Magnesium 1.9 mg/dl (1.7-2.4); Potassium 3.5 mmol/L (3.5-5.1); Total Protein 7.5 gm/dl (6.0-8.3)
[2022-12-13 07:26] LABS: Prothrombin Time 10.9 Seconds (9.0-12.0)
--- NOTE | 2022-12-13 07:40 | Gastrointestinal Consultation ---
Date of Consultation December 13, 2022 Assessment & Plan (1) Diverticulitis: Symptoms and CT findings are most consistent with diverticulitis Plan IV antibiotics, may change to p.o. when clinically improved and ready for discharge. Total of 10 days Clear liquids p.o. If any acute worsening of clinical status please contact surgery immediately. Plan for outpatient colonoscopy in 6 to 8 weeks. Our office will contact the patient to arrange Supervising Physician Co-Signing Physician Notes I performed a history and physical examination of the patient today, including specifically on physical exam - soft abdomen. I have discussed the patient's management with the advanced practitioner. Please refer to the nurse practitioner's note for the documented findings and plan of care. Patient with colonic obstruction, Diverticulitis related Vs Malignancy, small focus of microperforation. This is a surgical case and there is no much role for GI here as attempting colonoscopy would cause a perforation. Treat conservatively for now with IV ABx. Once he moves his bowel then can start diet. Plan for colonoscopy as OP in 4 weeks. If his condition worsens then needs surgical resection regardless of the etiology. Recall GI if needed. History of Present Illness Reason for Consultation: 1.3 cm microperf/Lg SBO Requesting Physician: Paige Vasques NP Attending Physician: Iban Crouch MD History of Present Illness Mr. Erasto Estrada is a 37 yr old male pt of Dr. Farris w a hx of asthma, arthritis, HTN and migraines. He presented to the ED yesterday for abdominal pain. 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 He tells me that for approximately 2 years, he has had intermittent left lower quadrant pain typically cramping and pressure lasting about a day at a time then goes for few months with no symptoms. Yesterday, midday, he had a sudden onset of this pain worse than usual which did not resolve quickly accompanied with chills so he presented to the emergency department. CTAP on arrival w a 7cm area distal descending colon inflammation and a possible 1.3 cm pericolonic abscess. He was evaluated by surgery who suggested conservative management of diverticulitis. He carries a fam hx of diverticulitis - father and mother. He has not previously undergone colonoscopy. Allergies Allergy/AdvReac Type Severity Reaction Status Date / Time Sulfa (Sulfonamide Allergy Redness of Verified 12/12/22 14:49 Antibiotics) Skin Home Medications Medication Instructions Recorded Confirmed Type fexofenadine 180 mg tablet 180 mg PO DAILY 12/12/22 12/12/22 History glucosamine 375 ie-ylwpuyclh-bkk 1 tab PO DAILY 12/12/22 12/12/22 History no1 500 mg-C 15 mg-los 0.5 mg tablet (Lcepngmtobh-Ycclyxtbrut-PCJ Complex) hydrochlorothiazide 12.5 mg capsule 12.5 mg PO QAM 12/12/22 12/12/22 History losartan 100 mg tablet 100 mg PO QAM 12/12/22 12/12/22 History magnesium oxide 500 mg tablet 500 mg PO DAILY 12/12/22 12/12/22 History montelukast 10 mg tablet 10 mg PO QAM 12/12/22 12/12/22 History multivitamin 1 tab PO QAM 12/12/22 12/12/22 History sertraline 25 mg tablet 25 mg PO QAM 12/12/22 12/12/22 History Patient History Medical History Asthma Depression Hypertension Social History Smoking Status: Never smoker Tobacco Type: Cigarettes Hx Substance Use: No Preferred Language: Kittitian Communication Ability: Effective Daycare Provider Required: No Beliefs That Will Affect Care: None Current Living Situation: Spouse Feels Safe at Home: Yes Safety Concerns: Feels Safe At This Time Assistive Devices: None Review of Systems Review of Systems: ROS: Gen: Denies weakness, fevers, weight loss Eyes: No eye redness, or pain, no recent vision changes Resp: No SOB, no cough Cardio: No palpitations/irregular beats, no chest pain GI: As per HPI, otherwise (-) : Denies pain on urination Skin: No jaundice, itching or new rashes Physical Exam 2 Constitutional: WD/WN, vitals as above + overweight Eyes: PERRL, conjunctivae normal, anicteric sclerae ENMT: external ear and nose normal, oropharynx normal Neck: trachea midline, no thyromegaly Respiratory: normal respiratory effort, lungs clear to auscultation Cardiovascular: RRR, no murmur, no edema Gastrointestinal (Abdomen): Mild left lower quadrant abdominal tenderness on deep palpation otherwise normal. Active bowel sounds present throughout. No obvious distention Musculoskeletal: no cyanosis or clubbing, extremities motor strength 5/5 Skin: no rashes, warm and dry Neurologic: PERRL, EOMI, accommodation nl, no face palsy, no dysarthria Psychiatric: A+Ox3, euthymic affect Lymphatic: no cervical or axillary lymphadenopathy Results & Data Vital Signs (Past 12 Hours) Vital Signs Temp Pulse Pulse Resp BP Pulse Ox O2 Del Method 12/13/22 03:56 36.9 C 87 18 127/85 96 Room Air 12/12/22 23:17 78 12/12/22 23:17 36.8 C 84 18 129/87 98 Room Air, Nasal Cannula 12/12/22 21:55 37.0 C 92 H 12 171/128 H 97 Nasal Cannula O2 Flow Rate 12/13/22 03:56 12/12/22 23:17 12/12/22 23:17 2 12/12/22 21:55 2 Diagnostic Findings CTAP w IV contrast 12/12/22: 1. Focal area of thickening/narrowing within a 7 cm segment of the distal descending colon with pericolonic inflammatory change and soft tissue thickening. This results in a large bowel obstruction and is therefore concerning for a colonic mass. An acute on chronic diverticulitis could also result in a similar appearance. Therefore, endoscopy recommended for further evaluation. 2. There is a punctate focus of pericolonic gas and a possible 1.3 cm pericolonic abscess adjacent to the thickened distal descending colon. Therefore, this raises the possibility of microperforation. 3. Hepatic steatosis. No definite hepatic lesions. 4. Normal appendix.
--- NOTE | 2022-12-13 08:34 | Surgery Progress Note ---
Date of Service December 13, 2022 Assessment & Plan (1) Diverticulitis: Plan: Likely acute diverticulitis rather than a mass although he will need a colonoscopy in 6 to 8 weeks. Improving with conservative management. I will keep him n.p.o. with ice chips yet today. White blood cell count down to 7000 and vitals are much improved. We will continue to follow along closely. (2) Large bowel obstruction: Admission and Anticipated Discharge Date Admission Date: December 12, 2022 Subjective Patient seen. Still with some lower abdominal discomfort but much improved from yesterday. Physical Exam Physical Exam: Alert. No acute distress Constitutional: WD/WN, vitals as above no acute distress and not ill appearing Eyes: PERRL, conjunctivae normal, anicteric sclerae EOM intact bilaterally ENMT: external ear and nose normal, oropharynx normal Ears: no hearing impairment Neck: trachea midline, no thyromegaly Respiratory: normal respiratory effort; no respiratory distress and does not use accessory muscles Cardiovascular: Rate/Rhythm: regular rate and regular rhythm Gastrointestinal (Abdomen): Soft. Mild suprapubic and left lower quadrant tenderness. No peritonitis Skin: no rashes, warm and dry Psychiatric: Orientation: alert, oriented x 3 and cooperative Results & Data Vital Signs (Past 12 Hours) Vital Signs Temp Pulse Pulse Resp BP Pulse Ox O2 Del Method 12/13/22 08:10 36.9 C 83 16 145/56 H 98 Nasal Cannula 12/13/22 03:56 36.9 C 87 18 127/85 96 Room Air 12/12/22 23:17 78 12/12/22 23:17 36.8 C 84 18 129/87 98 Room Air, Nasal Cannula 12/12/22 21:55 37.0 C 92 H 12 171/128 H 97 Nasal Cannula O2 Flow Rate 12/13/22 08:10 2 12/13/22 03:56 12/12/22 23:17 12/12/22 23:17 2 12/12/22 21:55 2 PG Care Time/CCT Total # of Minutes Spent Total Time Spent with Patient: Total time spent is greater than 50% in coordination of care (as documented) at patient's floor/unit and/or counseling patient: Coding Level of Care Code 18712 SUB INP/OBS CARE 2/35MIN Diagnoses Diverticulitis K57.92 Large bowel obstruction K56.609
[2022-12-13] MEDS: ACETAMINOPHEN 1,000 MG/100 ML VIAL IV SCH ×3 (08:47→22:12)
[2022-12-13] MEDS ORDERED: ENALAPRILAT 0.625 MG in SYRINGE 9.5 ML IV SCH (09:00)
[2022-12-13] MEDS ORDERED: ENALAPRILAT 0.625 MG in DEXTROSE 5% 25 ML IV SCH (09:00)
[2022-12-13] MEDS ORDERED: MoRPHine SULFATE 2 MG/ML CARP IV PRN (09:56)
[2022-12-13] MEDS: LACTATED RINGER'S 1,000 ML IV SCH ×2 (11:42→19:23)
[2022-12-13] MEDS ORDERED: HYDROmorphone INJ 0.5 MG/0.5 ML SYR IV PRN (16:29)
--- NOTE | 2022-12-13 16:33 | Hospitalist Progress Note ---
Date of Service December 13, 2022 Assessment & Plan (1) Large bowel obstruction: (2) Diverticulitis: (3) Hypertension: (4) Depression: (5) Asthma: Plan 37 year old presents to the ED with acute abdominal pain that started this AM with emesis x1; abdomen/pelvic CT revealed large bowel obstruction with concerns for colonic mass; 1.3 cm microperforation, along with acute on chronic diverticulitis. Empirically treat with IV abx. GI and general surgery consults pending. NPO for bowel rest. Additional PMH Large Bowel Obstruction: Diverticulitis: Abdominal/Pelvis CT: 7 cm segment of the distal descending colon with pericolonic inflammatory change and soft tissue thickening. Large bowel obstruction and concern for colonic mass. Acute on chronic diverticulitis could also result in a similar appearance. Endoscopy recommended. Possible 1.3 cm pericolonic abscess adjacent to the thickened distal descending colon. Possibility of microperforation. Surgery on board; continue with conservative management. will need colonoscopy in 6-8 weeks. Discussed with GI; continue conservative treatment with IV antibiotics. Plan for colonoscopy as outpatient in 4 weeks. Continue on Zosyn IV fluids Started on IV Tylenol and Dilaudid as needed HTN: Takes Losartan and HCTZ; continue while inpatient. BP elevated in ED: suspect related to pain Asthma: Takes Singulair and Alexandra; continue Depression: Takes Sertraline; continue Disposition: PCP: Dr. Hall Code Status: Full Code VTE Prophylaxis: Teds/SCDs for now Please note the above document was generated using voice recognition software. It may contain grammatical, syntax or spelling errors. Any formal questions or concerns about the content, text or information contained within the body of this dictation should be directly addressed to the provider for clarification Admission and Anticipated Discharge Date Admission Date: December 12, 2022 Subjective Patient seen and examined at bedside. He reports abdominal bloating. No nausea or vomiting. He has not passed gas. Review of Systems Review of Systems: All systems reviewed & are unremarkable except as noted in Subjective Physical Exam Physical Exam: Constitutional: WD/WN, vitals as above, NAD, sitting up in bed, pleasant, conversing easily Respiratory: normal respiratory effort, lungs clear to auscultation, no wheeze, rales, rhonchi. Normal insp/exp effort, no accessory muscle use Cardiovascular: RRR, no murmur, no edema Vessels: no JVD or carotid bruit Chest: normal inspection of chest Abdomen: Abdominal slightly bloated. hypoactive bowel sounds. Musculoskeletal: no cyanosis or clubbing, extremities motor strength 5/5 Skin: no rashes, warm and dry normal turgor Neurologic: PERRL, EOMI, accommodation nl, no face palsy, no dysarthria CN's II- XI intact bilaterally and moves all extremities Psychiatric: A+Ox3, euthymic affect Lymphatic: no cervical or axillary lymphadenopathy : deferred Results & Data Results & Data Vital Signs (Past 12 Hours) Vital Signs Temp Pulse Pulse Resp BP Pulse Ox O2 Del Method 12/13/22 08:00 93 H 12/13/22 12:23 37.1 C 82 16 137/85 95 Nasal Cannula 12/13/22 08:10 36.9 C 83 16 145/56 H 98 Nasal Cannula O2 Flow Rate 12/13/22 08:00 12/13/22 12:23 2 12/13/22 08:10 2 Laboratory Results Laboratory Results WBC 7.77 K/ul (4.8-10.8) 12/13/22 05:59 RBC 4.71 M/uL (4.70-6.10) 12/13/22 05:59 Hgb 14.6 g/dl (14.0-18.0) 12/13/22 05:59 POC Hgb 17.3 g/dl (14.0-18.0) 12/12/22 13:32 Hct 44.0 % (42.0-52.0) 12/13/22 05:59 POC Hct 51 % (42-52) 12/12/22 13:32 MCV 93.4 fL (80.0-100.0) 12/13/22 05:59 MCH 31.0 pg (25.0-34.0) 12/13/22 05:59 MCHC 33.2 g/dL (32.0-36.0) 12/13/22 05:59 RDW Std Deviation 46.5 fL (36.4-46.3) H 12/13/22 05:59 RDW Coeff of Zoraida 13.6 % (11.5-14.5) 12/13/22 05:59 Plt Count 267 K/uL (130-400) 12/13/22 05:59 MPV 10.7 fL (9.4-12.4) 12/13/22 05:59 Immature Gran % (Auto) 0.5 % 12/12/22 13:26 Neut % (Auto) 87.8 % 12/12/22 13:26 Lymph % (Auto) 5.9 % 12/12/22 13:26 [place] % (Auto) 5.3 % 12/12/22 13:26 Eos % (Auto) 0.0 % 12/12/22 13:26 Baso % (Auto) 0.5 % 12/12/22 13:26 Neut # (Auto) 11.38 K/uL (1.40-6.50) H 12/12/22 13:26 Lymph # (Auto) 0.76 K/uL (1.2-3.4) L 12/12/22 13:26 [place] # (Auto) 0.68 K/uL (0.11-0.59) H 12/12/22 13:26 Eos # (Auto) 0.00 K/uL (0-0.50) 12/12/22 13:26 Baso # (Auto) 0.06 K/uL (0-0.2) 12/12/22 13:26 Immature Gran # (Auto) 0.07 K/uL (0.01-0.20) 12/12/22 13:26 PT 10.9 Seconds (9.0-12.0) 12/13/22 05:59 INR 1.0 (0.9-1.1) 12/13/22 05:59 POC Sodium 135 mmol/L (135-144) 12/12/22 13:32 Sodium 140 mmol/L (136-145) 12/13/22 05:59 POC Potassium 3.6 mmol/L (3.3-5.0) 12/12/22 13:32 Potassium 3.5 mmol/L (3.5-5.1) 12/13/22 05:59 POC Chloride 98 mmol/L (101-112) L 12/12/22 13:32 Chloride 102 mmol/L (98-107) 12/13/22 05:59 Carbon Dioxide 30 mmol/L (21-32) 12/13/22 05:59 POC Total CO2 25 mmol/L (24-31) 12/12/22 13:32 Anion Gap 8 (3-11) 12/13/22 05:59 POC Anion Gap 17.0 mmol/L (16-25) 12/12/22 13:32 POC BUN 6 mg/dl (7-18) L 12/12/22 13:32 BUN 9 mg/dl (6-23) 12/13/22 05:59 Creatinine 0.89 mg/dl (0.6-1.4) 12/13/22 05:59 POC Creatinine 0.7 mg/dl (0.6-1.3) 12/12/22 13:32 Est Cr Clr Drug Dosing 158.2 ml/min 12/13/22 05:59 Est GFR ( Amer) 124.8 ml/min 12/13/22 05:59 Est GFR (Non-Af Amer) 107.7 ml/min 12/13/22 05:59 BUN/Creatinine Ratio 10.1 (10-20) 12/13/22 05:59 Glucose 84 mg/dl (70-99(Fasting)) 12/13/22 05:59 POC Glucose (other) 118 mg/dl (70-99) H 12/12/22 13:32 Calcium 9.4 mg/dl (8.6-10.3) 12/13/22 05:59 POC Ioniz Calcium Sebas 1.15 mmol/l (1.12-1.32) 12/12/22 13:32 Magnesium 1.9 mg/dl (1.7-2.4) 12/13/22 05:59 Total Bilirubin 0.9 mg/dl (0.2-1.0) 12/13/22 05:59 AST 17 U/L (13-39) 12/13/22 05:59 ALT 24 U/L (7-52) 12/13/22 05:59 Alkaline Phosphatase 68 U/L (34-104) 12/13/22 05:59 Total Protein 7.5 gm/dl (6.0-8.3) 12/13/22 05:59 Albumin 4.0 gm/dl (3.4-5.0) 12/13/22 05:59 Globulin 3.5 gm/dl (2.5-4.0) 12/13/22 05:59 Albumin/Globulin Ratio 1.1 (0.9-2) 12/13/22 05:59 Lipase 27 U/L (11-82) 12/12/22 13:26 Urine Color Yellow 12/12/22 14:54 Urine Appearance Clear (Clear) 12/12/22 14:54 Urine pH 6.5 (4.5-7.5) 12/12/22 14:54 Ur Specific [place] 1.016 (1.000-1.030) 12/12/22 14:54 Urine Protein Negative (Negative) 12/12/22 14:54 Urine Glucose (UA) Negative (Negative) 12/12/22 14:54 Urine Ketones Trace (Negative) H 12/12/22 14:54 Urine Blood Negative (Negative) 12/12/22 14:54 Urine Nitrite Negative (Negative) 12/12/22 14:54 Urine Bilirubin Negative (Negative) 12/12/22 14:54 Urine Urobilinogen Negative (Negative) 12/12/22 14:54 Ur Leukocyte Esterase 1+ (Negative) H 12/12/22 14:54 Urine WBC (Auto) 5-10 /hpf (0-5) H 12/12/22 14:54 Urine RBC (Auto) 0-4 /hpf (0-4) 12/12/22 14:54 U Hyaline Cast (Auto) 0 /lpf (0-5) 12/12/22 14:54 U Epithel Cells (Auto) 0-5 /lpf (0-5) 12/12/22 14:54 Urine Bacteria (Auto) Negative (Negative) 12/12/22 14:54 SARS-CoV-2, RNA, NAAT NEGATIVE (NEGATIVE) 12/12/22 14:53 Impressions Abdomen/Pelvis CT 12/12/22 13:[address] WITH IV CONTRAST CT DOSE: 1256.90 mGy.cm HISTORY: mid abd pain TECHNIQUE: Multiaxial CT images of the abdomen and pelvis were performed following the use of intravenous contrast. A dose lowering technique was utilized adhering to the principles of ALARA. COMPARISON STUDY: None. FINDINGS: A few bibasilar linear densities consistent with subsegmental atelectasis. A 1 cm sclerotic focus within the right femoral neck favors a bone island. Otherwise, no suspicious lytic or blastic osseous lesions. There is slight elevation left hemidiaphragm. Mild hepatic steatosis. No hepatic or splenic masses. The gallbladder, pancreas, adrenal glands, and kidneys are unremarkable. No hydronephrosis. No retroperitoneal lymphadenopathy. Normal caliber abdominal aorta. The main portal vein is patent. The bladder is unremarkable. No pelvic free fluid or pelvic lymphadenopathy. Multiple colonic diverticula. Focal thickening and narrowing within the distal descending colon which measures approximately 7 cm in length. There is pericolonic inflammatory change/soft tissue at this focal area of narrowing and a possible punctate focus of extraluminal gas on image 231.Proximal to this long segment of narrowing, the large bowel is distended and filled with gas and fluid. Therefore, this is consistent with a transition point for a large bowel obstruction. Therefore, this 7 cm segment of thickening/narrowing within the distal descending colon is concerning for a colonic mass. An acute on chronic diverticulitis could also have a similar appearance. The punctate focus of intraluminal gas likely represents microperforation. There is also a questionable 1.3 cm pericolonic abscess on image 262 adjacent to the thickened descending colon. Normal appendix. The cecum is distended up to 10 cm. The small bowel loops are normal in course and caliber. IMPRESSION: 1. Focal area of thickening/narrowing within a 7 cm segment of the distal descending colon with pericolonic inflammatory change and soft tissue thickening. This results in a large bowel obstruction and is therefore concerning for a colonic mass. An acute on chronic diverticulitis could also result in a similar appearance. Therefore, endoscopy recommended for further evaluation. 2. There is a punctate focus of pericolonic gas and a possible 1.3 cm pericolonic abscess adjacent to the thickened distal descending colon. Therefore, this raises the possibility of microperforation. 3. Hepatic steatosis. No definite hepatic lesions. 4. Normal appendix. ACT 112: Negative or not required by law. Electronically signed by: Ralph Camarillo M.D. 12/12/2022 3:12 PM
[2022-12-14] MEDS: LACTATED RINGER'S 1,000 ML IV SCH (03:21)
[2022-12-14] MEDS: ACETAMINOPHEN 1,000 MG/100 ML VIAL IV SCH ×3 (05:58→21:57)
[2022-12-14] MEDS: PIPERACILLIN/TAZOBACTAM 4.5 GM in DEXTROSE 5% 100 ML IV SCH (06:02)
[2022-12-14 06:25] LABS: Basophils # (auto) 0.04 K/uL (0-0.2); Basophils % (auto) 0.4 %; Eosinophils # (auto) 0.22 K/uL (0-0.50); Eosinophils % (auto) 2.4 %; Hematocrit (blood only) 42.5 % (42.0-52.0); Hemoglobin 14.1 g/dl (14.0-18.0); Immature Granulocytes # (auto) 0.04 K/uL (0.01-0.20); Immature Granulocytes % (auto) 0.4 %; Lymphocytes # (auto) 0.84 K/uL (1.2-3.4); Lymphocytes % (auto) 9.1 %; Mean Corpuscular Hemoglobin 30.8 pg (25.0-34.0); Mean Corpuscular Hgb Conc 33.2 g/dL (32.0-36.0); Mean Corpuscular Volume 92.8 fL (80.0-100.0); Mean Platelet Volume 10.8 fL (9.4-12.4); Monocytes # (auto) 0.55 K/uL (0.11-0.59); Monocytes % (auto) 5.9 %; Neutrophils # (auto) 7.56 K/uL (1.40-6.50); Neutrophils % (auto) 81.8 %; Platelet Count 250 K/uL (130-400); RDW Coefficient of Variation 13.2 % (11.5-14.5); RDW Standard Deviation 44.8 fL (36.4-46.3); Red Blood Count 4.58 M/uL (4.70-6.10); White Blood Count 9.25 K/ul (4.8-10.8)
[2022-12-14 06:41] LABS: BUN Creatinine Ratio 12.5 (10-20); Creatinine Clr Calc Pharmacy 196.1 ml/min; Est GFR (African American) 136.2 ml/min; Est GFR (Non-African American) 117.5 ml/min; Potassium 3.5 mmol/L (3.5-5.1)
[2022-12-14] MEDS: hydroCHLOROthiazide 25 MG TAB PO SCH (08:07)
[2022-12-14] MEDS: MONTELUKAST SODIUM 10 MG TABLET PO SCH (08:08)
[2022-12-14] MEDS: LOSARTAN POTASSIUM 50 MG TAB PO SCH (08:08)
[2022-12-14] MEDS: SERTRALINE HCL 50 MG TABLET PO SCH (08:08)
--- NOTE | 2022-12-14 08:49 | Surgery Progress Note ---
Date of Service December 14, 2022 Assessment & Plan (1) Diverticulitis: Plan: Clinically improving. Continue antibiotics. Will initiate clear liquids and see how he does Admission and Anticipated Discharge Date Admission Date: December 12, 2022 Subjective Patient continues to improve. He did have several small bowel movements and passing some gas. Still has some mild suprapubic discomfort. No nausea Physical Exam Constitutional: WD/WN, vitals as above no acute distress and not ill appearing Eyes: PERRL, conjunctivae normal, anicteric sclerae EOM intact bilaterally ENMT: external ear and nose normal, oropharynx normal Ears: no hearing impairment Neck: trachea midline, no thyromegaly Respiratory: normal respiratory effort; no respiratory distress and does not use accessory muscles Cardiovascular: Rate/Rhythm: regular rate and regular rhythm Gastrointestinal (Abdomen): Soft. Mild suprapubic tenderness. Exam much improved. No peritoneal signs Skin: no rashes, warm and dry Psychiatric: Orientation: alert, oriented x 3 and cooperative Results & Data Vital Signs (Past 12 Hours) Vital Signs Temp Pulse Resp BP Pulse Ox O2 Del Method 12/14/22 07:56 36.6 C 89 18 132/90 96 Room Air 12/14/22 03:58 36.8 C 91 H 18 130/90 95 Room Air 12/13/22 23:07 36.8 C 96 H 16 132/85 95 Room Air PG Care Time/CCT Total # of Minutes Spent Total Time Spent with Patient: Total time spent is greater than 50% in coordination of care (as documented) at patient's floor/unit and/or counseling patient: Coding Level of Care Code 06043 SUB INP/OBS CARE 2/35MIN Diagnoses Diverticulitis K57.92
--- NOTE | 2022-12-14 10:54 | Gastroenterology Progress Note ---
Date of Service December 14, 2022 Assessment & Plan (1) Diverticulitis: Plan: Likely w diverticular stricture. Plan 1. Antibiotics for diverticulitis. 2. Continue clear liquids diet. 3. Plan for OP Colonoscopy in 6-8 wks. 4. GI will sign off. Recall if needed. Admission and Anticipated Discharge Date Admission Date: December 12, 2022 Supervising Physician Co-Signing Physician Notes I performed a history and physical examination of the patient today, including specifically on physical exam - soft abdomen. I have discussed the patient's management with the advanced practitioner. Please refer to the nurse practitioner's note for the documented findings and plan of care. Had few small BM and passing gas. Clinically improving and feeling better. Still feels distended. Continue ABx. Surgery follow up in the event he needs urgent resection if he develops obstruc tion or perforation. Recall GI if needed. Subjective Mr. Erasto Zamora is a 37 yr old male admitted 12/12 w diverticulitis/diverticular stricture. Today he reports improvement in his pain and overall wellbeing. He is now able to move around in the bed without pain. Taking clear liquid diet without nausea or increased pain. Passing gas. Has not passed a BM in the past few days. Review of Systems Review of Systems: ROS: Gen: Denies weakness, fevers, weight loss Eyes: No eye redness, or pain, no recent vision changes Resp: No SOB, no cough Cardio: No palpitations/irregular beats, no chest pain GI: As per HPI, otherwise (-) : Denies pain on urination Skin: No jaundice, itching or new rashes Physical Exam Constitutional: WD/WN, vitals as above + overweight Eyes: PERRL, conjunctivae normal, anicteric sclerae ENMT: external ear and nose normal, oropharynx normal Neck: trachea midline, no thyromegaly Respiratory: normal respiratory effort, lungs clear to auscultation Cardiovascular: RRR, no murmur, no edema Gastrointestinal (Abdomen): BS present, active, mild Rt mid and RLQ tenderness on palpation, mild distention over soft abdomen. Musculoskeletal: no cyanosis or clubbing, extremities motor strength 5/5 Skin: no rashes, warm and dry Neurologic: PERRL, EOMI, accommodation nl, no face palsy, no dysarthria Psychiatric: A+Ox3, euthymic affect Lymphatic: no cervical or axillary lymphadenopathy Results & Data Vital Signs (Past 12 Hours) Vital Signs Temp Pulse Resp BP Pulse Ox O2 Del Method 12/14/22 07:56 36.6 C 89 18 132/90 96 Room Air 12/14/22 03:58 36.8 C 91 H 18 130/90 95 Room Air 12/13/22 23:07 36.8 C 96 H 16 132/85 95 Room Air Laboratory Results WBC 9.25, Hb 14, HCT 42, PLT S2 50, NA 138, K3.5, CL 103, CO2 27, BUN 9, CR 0.7, glucose 74. Diagnostic Findings CTAP 12/13: 1. Focal area of thickening/narrowing within a 7 cm segment of the distal descending colon with pericolonic inflammatory change and soft tissue thickening. This results in a large bowel obstruction and is therefore concerning for a colonic mass. An acute on chronic diverticulitis could also result in a similar appearance. Therefore, endoscopy recommended for further evaluation. 2. There is a punctate focus of pericolonic gas and a possible 1.3 cm pericolonic abscess adjacent to the thickened distal descending colon. Therefore, this raises the possibility of microperforation. 3. Hepatic steatosis. No definite hepatic lesions. 4. Normal appendix.
[2022-12-14] MEDS: cefTRIAXone SODIUM 2,000 MG in DEXTROSE 5% 50 ML IV SCH (11:11)
--- NOTE | 2022-12-14 12:56 | Hospitalist Progress Note ---
Date of Service December 14, 2022 Assessment & Plan (1) Large bowel obstruction: (2) Diverticulitis: (3) Hypertension: (4) Depression: (5) Asthma: Plan 37 year old presents to the ED with acute abdominal pain that started this AM with emesis x1; abdomen/pelvic CT revealed large bowel obstruction with concerns for colonic mass; 1.3 cm microperforation, along with acute on chronic diverticulitis. Empirically treat with IV abx. GI and general surgery consults pending. NPO for bowel rest. Additional PMH Large Bowel Obstruction: Diverticulitis: Abdominal/Pelvis CT from admission reviewed: 7 cm segment of the distal descending colon with pericolonic inflammatory change and soft tissue thickening. Large bowel obstruction and concern for colonic mass. Acute on chronic diverticulitis could also result in a similar appearance. Endoscopy recommended. Possible 1.3 cm pericolonic abscess adjacent to the thickened distal descending colon. Possibility of microperforation. Surgery on board; continue with conservative management. will need colonoscopy in 6-8 weeks. Discussed with GI; continue conservative treatment with IV antibiotics. Plan for colonoscopy as outpatient in 4 weeks. Started on clear liquid diet; advance as tolerated. Pain control with IV Tylenol and as needed Dilaudid Continue to monitor for abdominal pain, nausea and vomiting. Continue on ceftriaxone and Flagyl. HTN: Takes Losartan and HCTZ; continue while inpatient. BP elevated in ED: suspect related to pain Asthma: Takes Singulair and Alexandra; continue Depression: Takes Sertraline; continue Disposition: PCP: Dr. Hall Code Status: Full Code VTE Prophylaxis: Teds/SCDs for now Please note the above document was generated using voice recognition software. It may contain grammatical, syntax or spelling errors. Any formal questions or concerns about the content, text or information contained within the body of this dictation should be directly addressed to the provider for clarification Admission and Anticipated Discharge Date Admission Date: December 12, 2022 Subjective Patient seen and examined at bedside. He reports 2 episodes of bowel movement today and he is passing gas. Reports his abdomen continues to feel distended. Review of Systems Review of Systems: All systems reviewed & are unremarkable except as noted in Subjective Physical Exam Physical Exam: Constitutional: WD/WN, vitals as above, NAD, sitting up in bed, pleasant, c onversing easily Respiratory: normal respiratory effort, lungs clear to auscultation, no wheeze, rales, rhonchi. Normal insp/exp effort, no accessory muscle use Cardiovascular: RRR, no murmur, no edema Vessels: no JVD or carotid bruit Chest: normal inspection of chest Abdomen: Abdominal slightly distended. Bowel sounds present Musculoskeletal: no cyanosis or clubbing, extremities motor strength 5/5 Skin: no rashes, warm and dry normal turgor Neurologic: PERRL, EOMI, accommodation nl, no face palsy, no dysarthria CN's II- XI intact bilaterally and moves all extremities Psychiatric: A+Ox3, euthymic affect Results & Data Results & Data Vital Signs (Past 12 Hours) Vital Signs Temp Pulse Pulse Resp BP Pulse Ox O2 Del Method 12/14/22 12:33 36.8 C 79 18 142/91 H 97 Room Air 12/14/22 08:00 93 H 12/14/22 07:56 36.6 C 89 18 132/90 96 Room Air 12/14/22 03:58 36.8 C 91 H 18 130/90 95 Room Air Laboratory Results Laboratory Results WBC 9.25 K/ul (4.8-10.8) 12/14/22 05: RBC 4.58 M/uL (4.70-6.10) L 12/14/22 05:27 Hgb 14.1 g/dl (14.0-18.0) 12/14/22 05:27 POC Hgb 17.3 g/dl (14.0-18.0) 12/12/22 13:32 Hct 42.5 % (42.0-52.0) 12/14/22 05:27 POC Hct 51 % (42-52) 12/12/22 13:32 MCV 92.8 fL (80.0-100.0) 12/14/22 05: MCH 30.8 pg (25.0-34.0) 12/14/22 05:27 MCHC 33.2 g/dL (32.0-36.0) 12/14/22 05:27 RDW Std Deviation 44.8 fL (36.4-46.3) 12/14/22 05:27 RDW Coeff of Zoraida 13.2 % (11.5-14.5) 12/14/22 05:27 Plt Count 250 K/uL (130-400) 12/14/22 05:27 MPV 10.8 fL (9.4-12.4) 12/14/22 05:27 Immature Gran % (Auto) 0.4 % 12/14/22 05:27 Neut % (Auto) 81.8 % 12/14/22 05:27 Lymph % (Auto) 9.1 % 12/14/22 05:27 Hale % (Auto) 5.9 % 12/14/22 05:27 Eos % (Auto) 2.4 % 12/14/22 05:27 Baso % (Auto) 0.4 % 12/14/22 05:27 Neut # (Auto) 7.56 K/uL (1.40-6.50) H 12/14/22 05:27 Lymph # (Auto) 0.84 K/uL (1.2-3.4) L 12/14/22 05:27 Hale # (Auto) 0.55 K/uL (0.11-0.59) 12/14/22 05:27 Eos # (Auto) 0.22 K/uL (0-0.50) 12/14/22 05:27 Baso # (Auto) 0.04 K/uL (0-0.2) 12/14/22 05:27 Immature Gran # (Auto) 0.04 K/uL (0.01-0.20) 12/14/22 05:27 PT 10.9 Seconds (9.0-12.0) 12/13/22 05:59 INR 1.0 (0.9-1.1) 12/13/22 05:59 POC Sodium 135 mmol/L (135-144) 12/12/22 13:32 Sodium 138 mmol/L (136-145) 12/14/22 05:27 POC Potassium 3.6 mmol/L (3.3-5.0) 12/12/22 13:32 Potassium 3.5 mmol/L (3.5-5.1) 12/14/22 05:27 POC Chloride 98 mmol/L (101-112) L 12/12/22 13:32 Chloride 103 mmol/L (98-107) 12/14/22 05:27 Carbon Dioxide 27 mmol/L (21-32) 12/14/22 05:27 POC Total CO2 25 mmol/L (24-31) 12/12/22 13:32 Anion Gap 8 (3-11) 12/14/22 05:27 POC Anion Gap 17.0 mmol/L (16-25) 12/12/22 13:32 POC BUN 6 mg/dl (7-18) L 12/12/22 13:32 BUN 9 mg/dl (6-23) 12/14/22 05:27 Creatinine 0.72 mg/dl (0.6-1.4) 12/14/22 05:27 POC Creatinine 0.7 mg/dl (0.6-1.3) 12/12/22 13:32 Est Cr Clr Drug Dosing 196.1 ml/min 12/14/22 05:27 Est GFR ( Amer) 136.2 ml/min 12/14/22 05:27 Est GFR (Non-Af Amer) 117.5 ml/min 12/14/22 05:27 BUN/Creatinine Ratio 12.5 (10-20) 12/14/22 05:27 Glucose 74 mg/dl (70-99(Fasting)) 12/14/22 05:27 POC Glucose (other) 118 mg/dl (70-99) H 12/12/22 13:32 Calcium 9.0 mg/dl (8.6-10.3) 12/14/22 05:27 POC Ioniz Calcium Sebas 1.15 mmol/l (1.12-1.32) 12/12/22 13:32 Magnesium 1.9 mg/dl (1.7-2.4) 12/13/22 05:59 Total Bilirubin 0.9 mg/dl (0.2-1.0) 12/13/22 05:59 AST 17 U/L (13-39) 12/13/22 05:59 ALT 24 U/L (7-52) 12/13/22 05:59 Alkaline Phosphatase 68 U/L (34-104) 12/13/22 05:59 Total Protein 7.5 gm/dl (6.0-8.3) 12/13/22 05:59 Albumin 4.0 gm/dl (3.4-5.0) 12/13/22 05:59 Globulin 3.5 gm/dl (2.5-4.0) 12/13/22 05:59 Albumin/Globulin Ratio 1.1 (0.9-2) 12/13/22 05:59 Lipase 27 U/L (11-82) 12/12/22 13:26 Urine Color Yellow 12/12/22 14:54 Urine Appearance Clear (Clear) 12/12/22 14:54 Urine pH 6.5 (4.5-7.5) 12/12/22 14:54 Ur Specific [place] 1.016 (1.000-1.030) 12/12/22 14:54 Urine Protein Negative (Negative) 12/12/22 14:54 Urine Glucose (UA) Negative (Negative) 12/12/22 14:54 Urine Ketones Trace (Negative) H 12/12/22 14:54 Urine Blood Negative (Negative) 12/12/22 14:54 Urine Nitrite Negative (Negative) 12/12/22 14:54 Urine Bilirubin Negative (Negative) 12/12/22 14:54 Urine Urobilinogen Negative (Negative) 12/12/22 14:54 Ur Leukocyte Esterase 1+ (Negative) H 12/12/22 14:54 Urine WBC (Auto) 5-10 /hpf (0-5) H 12/12/22 14:54 Urine RBC (Auto) 0-4 /hpf (0-4) 12/12/22 14:54 U Hyaline Cast (Auto) 0 /lpf (0-5) 12/12/22 14:54 U Epithel Cells (Auto) 0-5 /lpf (0-5) 12/12/22 14:54 Urine Bacteria (Auto) Negative (Negative) 12/12/22 14:54 SARS-CoV-2, RNA, NAAT NEGATIVE (NEGATIVE) 12/12/22 14:53 Impressions Abdomen/Pelvis CT 12/12/22 13:[address] WITH IV CONTRAST CT DOSE: 1256.90 mGy.cm HISTORY: mid abd pain TECHNIQUE: Multiaxial CT images of the abdomen and pelvis were performed following the use of intravenous contrast. A dose lowering technique was utilized adhering to the principles of ALARA. COMPARISON STUDY: None. FINDINGS: A few bibasilar linear densities consistent with subsegmental atelectasis. A 1 cm sclerotic focus within the right femoral neck favors a bone island. Otherwise, no suspicious lytic or blastic osseous lesions. There is slight elevation left hemidiaphragm. Mild hepatic steatosis. No hepatic or splenic masses. The gallbladder, pancreas, adrenal glands, and kidneys are unremarkable. No hydronephrosis. No retroperitoneal lymphadenopathy. Normal caliber abdominal aorta. The main portal vein is patent. The bladder is unremarkable. No pelvic free fluid or pelvic lymphadenopathy. Multiple colonic diverticula. Focal thickening and narrowing within the distal descending colon which measures approximately 7 cm in length. There is pericolonic inflammatory c hange/soft tissue at this focal area of narrowing and a possible punctate focus of extraluminal gas on image 231.Proximal to this long segment of narrowing, the large bowel is distended and filled with gas and fluid. Therefore, this is consistent with a transition point for a large bowel obstruction. Therefore, this 7 cm segment of thickening/narrowing within the distal descending colon is concerning for a colonic mass. An acute on chronic diverticulitis could also have a similar appearance. The punctate focus of intraluminal gas likely represents microperforation. There is also a questionable 1.3 cm pericolonic abscess on image 262 adjacent to the thickened descending colon. Normal appendix. The cecum is distended up to 10 cm. The small bowel loops are normal in course and caliber. IMPRESSION: 1. Focal area of thickening/narrowing within a 7 cm segment of the distal descending colon with pericolonic inflammatory change and soft tissue thickening. This results in a large bowel obstruction and is therefore concerning for a colonic mass. An acute on chronic diverticulitis could also result in a similar appearance. Therefore, endoscopy recommended for further evaluation. 2. There is a punctate focus of pericolonic gas and a possible 1.3 cm pericolonic abscess adjacent to the thickened distal descending colon. Therefore, this raises the possibility of microperforation. 3. Hepatic steatosis. No definite hepatic lesions. 4. Normal appendix. ACT 112: Negative or not required by law. Electronically signed by: Ralph Camarillo M.D. 12/12/2022 3:12 PM
[2022-12-14] MEDS: metroNIDAZOLE 500 MG TAB PO SCH ×2 (13:30→20:24)
[2022-12-15 06:03] LABS: Basophils # (auto) 0.03 K/uL (0-0.2); Basophils % (auto) 0.4 %; Eosinophils # (auto) 0.22 K/uL (0-0.50); Eosinophils % (auto) 2.9 %; Hematocrit (blood only) 44.6 % (42.0-52.0); Hemoglobin 15.1 g/dl (14.0-18.0); Immature Granulocytes # (auto) 0.03 K/uL (0.01-0.20); Immature Granulocytes % (auto) 0.4 %; Lymphocytes # (auto) 0.81 K/uL (1.2-3.4); Lymphocytes % (auto) 10.8 %; Mean Corpuscular Hemoglobin 31.2 pg (25.0-34.0); Mean Corpuscular Hgb Conc 33.9 g/dL (32.0-36.0); Mean Corpuscular Volume 92.1 fL (80.0-100.0); Mean Platelet Volume 10.4 fL (9.4-12.4); Monocytes # (auto) 0.59 K/uL (0.11-0.59); Monocytes % (auto) 7.9 %; Neutrophils % (auto) 77.6 %; Platelet Count 260 K/uL (130-400); RDW Coefficient of Variation 13.2 % (11.5-14.5); Red Blood Count 4.84 M/uL (4.70-6.10); White Blood Count 7.48 K/ul (4.8-10.8)
[2022-12-15 06:14] LABS: BUN Creatinine Ratio 8.4 (10-20); Calcium 9.5 mg/dl (8.6-10.3); Creatinine Clr Calc Pharmacy 170.1 ml/min; Est GFR (African American) 128.5 ml/min; Est GFR (Non-African American) 110.8 ml/min; Potassium 3.5 mmol/L (3.5-5.1)
[2022-12-15] MEDS: ACETAMINOPHEN 1,000 MG/100 ML VIAL IV SCH (06:49)
[2022-12-15] MEDS: MONTELUKAST SODIUM 10 MG TABLET PO SCH (08:56)
[2022-12-15] MEDS: metroNIDAZOLE 500 MG TAB PO SCH ×2 (08:56→14:20)
[2022-12-15] MEDS: SERTRALINE HCL 50 MG TABLET PO SCH (08:56)
[2022-12-15] MEDS: hydroCHLOROthiazide 25 MG TAB PO SCH (08:57)
[2022-12-15] MEDS: LOSARTAN POTASSIUM 50 MG TAB PO SCH (08:57)
[2022-12-15] MEDS: cefTRIAXone SODIUM 2,000 MG in DEXTROSE 5% 50 ML IV SCH (09:02)
[2022-12-15] MEDS ORDERED: ACETAMINOPHEN 325 MG TAB PO PRN (09:46)
--- NOTE | 2022-12-15 14:05 | Surgery Progress Note ---
Date of Service December 15, 2022 Assessment & Plan (1) Diverticulitis: Plan: Doing well from my standpoint. Okay for discharge from my standpoint Like to see him in the office to discuss options in 3 to 4 weeks He is already scheduled with GI regarding colonoscopy in the near future Admission and Anticipated Discharge Date Admission Date: December 12, 2022 Subjective Patient seen. Continues to feel better. Had several bowel movements today and tolerating a diet Physical Exam Physical Exam: Alert. Looks well No acute distress Abdomen is soft. Minimal tenderness. Much improved since admission Results & Data Vital Signs (Past 12 Hours) Vital Signs Temp Pulse Pulse Resp BP Pulse Ox O2 Del Method 12/15/22 06:00 81 12/15/22 11:01 36.7 C 113 H 20 123/92 96 Room Air 12/15/22 08:01 36.7 C 96 H 19 138/99 97 Room Air 12/15/22 03:26 36.7 C 78 20 133/92 97 Room Air PG Care Time/CCT Total # of Minutes Spent Total Time Spent with Patient: Total time spent is greater than 50% in coordination of care (as documented) at patient's floor/unit and/or counseling patient: Coding Level of Care Code 73682 SUB INP/OBS CARE 2/35MIN Diagnoses Diverticulitis K57.92
--- NOTE | 2022-12-15 16:21 | Discharge Summary ---
Date of Service December 15, 2022 Admission HPI Per Admitting Provider Mr. Pierson is a 37-year-old male that presented to the [facility] after experiencing an acute onset of abdominal pain that started acutely this morning at 0600 following abdominal distention. Around 1230 he started vomiting bile. He did not have a bowel movement today. LBM yesterday. Abdominal and pelvic CT revealed large 7 cm distal descending large bowel obstruction; with possible colonic mass. Additionally a 1.3 cm pericolonic abscess adjacent to the thickened distal descending colon suggesting microperforation. Discussed with general surgery who will evaluate him. Discussed with GI as well ; given the inflammation with microperforation suspect GI eval will be necessary with large bowel obstruction once patient has received abx and bowel rest. Pt father and mother both have had diverticulitis. Pt has had wisdom teeth removal with no anesthesia complications. Additional PMH includes HTN (On Losartan and HCTZ), asthma, and depression. Patient denies COSTELLO, dizziness, visual or auditory changes, urinary changes, appetite changes, recent falls or trauma. Patient sitting upright in his hospital bed in apparent distress with diaphoresis. He is tachycardic and hypoxic; placed on 2LNC with SPO2 improvement. Patient will be admitted for further evaluation and management. Please see A/P for further details. Admission Exam Per Admitting Provider Neuro: AAOx4, PERRLA, no aphagia, memory changes, CNII-XII grossly intact HEENT: head normocephalic, moist mucus membranes CV: S1/S2, (-) M/G/R, (-) edema, cap refill < 3 seconds euvolemic on exam Resp: Lungs CTA in all [place]. On 2LNC GI: Abdomen distended and tender LLQ. Ax4 bowel sounds, (-) CVA tenderness Musculoskeletal: 5/5 B/L UE strength, 5/5 B/L LE strength. No gait disturbance Skin: (-) rashes , (+) erythema on chest from pruritis (not new) Psych: euthymic mood Principal Diagnosis Large Bowel Obstruction: Diverticulitis: Discharge Exam Constitutional: WD/WN, vitals as above, NAD, sitting up in bed, pleasant, conversing easily Respiratory: normal respiratory effort, lungs clear to auscultation, no wheeze, rales, rhonchi. Normal insp/exp effort, no accessory muscle use Cardiovascular: RRR, no murmur, no edema Vessels: no JVD or carotid bruit Chest: normal inspection of chest Abdomen: Abdominal slightly distended. Bowel sounds present Musculoskeletal: no cyanosis or clubbing, extremities motor strength 5/5 Skin: no rashes, warm and dry normal turgor Neurologic: PERRL, EOMI, accommodation nl, no face palsy, no dysarthria CN's II- XI intact bilaterally and moves all extremities Psychiatric: A+Ox3, euthymic affect Discharge Data Allergies Allergy/AdvReac Type Severity Reaction Status Date / Time Sulfa (Sulfonamide Allergy Redness of Verified 12/12/22 14:49 Antibiotics) Skin Consultations 12/12/22 15:14 Consult General Surgery Stat 12/12/22 15:57 ED Decision to Admit Stat 12/12/22 15:58 Consult Gastroenterology Routine Ordered Studies 12/12/22 13:10 CT abd pelvis IV con only Stat Hospital Course (1) Large bowel obstruction: (2) Diverticulitis: (3) Hypertension: (4) Depression: (5) Asthma: Plan 37 year old presents to the ED with acute abdominal pain that started this AM with emesis x1; abdomen/pelvic CT revealed large bowel obstruction with concerns for colonic mass; 1.3 cm microperforation, along with acute on chronic diverticulitis. Patient was started on conservative care with IV fluids, IV antibiotic analgesics and bowel rest. Surgery and GI were consulted. Over the course of the hospitalization, patient showed signs of improvement with decreasing abdominal pain. His diet was advanced gradually. Patient also had multiple bowel movements. GI recommended to do colonoscopy as outpatient in 4 weeks. Patient to also follow-up with surgery as outpatient. All the medication were continued as before. Patient was discharged on 10 more days of oral antibiotics. Please note the above document was generated using voice recognition software. It may contain grammatical, syntax or spelling errors. Any formal questions or concerns about the content, text or information contained within the body of this dictation should be directly addressed to the provider for clarification Total Time Total Time Spent Total Time Spent (In Minutes): 45 Total Time Includes: Examination of the Patient, Discharge Planning, Medication Reconciliation, Communication With Other Providers and Other Discharge Plan Discharge Items Patient Disposition: Home - Self-Care Reason For Visit: ABDOMINAL PAIN Discharge Diagnosis: Large Bowel Obstruction: Diverticulitis: Activity: Resume your previous activity Non-emergency contact: Primary Care Provider Call non-emergency contact if: you have any medication questions and your symptoms worsen Follow-up/Referrals: Erasto Vazquez DO [Surgeon] - 01/10/23 9:00 am Arthur Farris MD [Primary Care Provider] - (Date & Time 12/21/2022 10:40 AM Provider Martha Horton MD [facility] ) Diet: Low Fiber Addtl Attending Provider Instructions: You were admitted to the hospital with large bowel obstruction. The likely cause for it is diverticulitis. You are prescribed Augmentin to be taken twice daily and Flagyl to be taken 3 times daily for 10 days. Please follow low fiber diet. An appointment will be set up for you with your primary care doctor. You will need to have colonoscopy done in 4 weeks. Pending Studies at Discharge: No Stand-Alone Forms: My [facility] [employer], Smoking Cessation Medications and DC Order Prescriptions: New acetaminophen 325 mg Tablet 650 mg PO Q4H PRN (Reason: fever or pain) Qty: 30 0RF metronidazole 500 mg Tablet 500 mg PO TID 10 Days Qty: 30 0RF amoxicillin-pot clavulanate 875-125 mg tablet 1 tab PO BID 10 Days Qty: 20 0RF Continued multivitamin Tablet 1 tab PO QAM fexofenadine [Alexandra] 180 mg Tablet 180 mg PO DAILY hydrochlorothiazide 12.5 mg capsule 12.5 mg PO QAM magnesium oxide 500 mg Tablet 500 mg PO DAILY sertraline 25 mg tablet 25 mg PO QAM montelukast 10 mg tablet 10 mg PO QAM losartan 100 mg tablet 100 mg PO QAM Hqfpquerzvc-Bahzk-NNV Complex 096-501-02-0.5 mg Tablet 1 tab PO DAILY Discharge Orders: Discharge Order (Routine); Ordered 12/15/22 Ordered By: Iban Crouch Admission Data Admit Date/Time: 12/12/22 15:58 Attending Provider: Iban Crouch Admit Provider: Momo White Primary Care Provider: Arthur Farris Other Providers: Erasto Vazquez ; Momo White ; Shiva Garcia
== END 2022-12-15 18:29 | disposition home or self-care (01) | DRG 389 ==
LOC: ED 12:56 → EDINP 15:58 → SUATTDRO 15:58 → 4W 18:08

== ENCOUNTER 2023-04-19 09:47 | Inpatient (IN) ==
--- NOTE | 2023-04-12 16:01 | Anesthesiology Consultation ---
Date of Service April 12, 2023 Assessment & Plan (1) Encounter for pre-operative examination: Plan - Per gift wrapper on 04/12/2023: No known infectious disease contacts, current infectious disease symptoms in past 10 days or COVID positive test result in the past 90 days. Chart Review Chart Review: Acceptable Risk for Surgery and Patient NOT seen in Pre Admission Testing History Surgery Operation Date: 04/19/23 10:15 Proposed Procedures p Laparoscopic Sigmoid Colectomy - Erasto Vazquez DO Height/Weight Height: 6 ft 1 in Weight: 124.738 kg Allergies Allergy/AdvReac Type Severity Reaction Status Date / Time Sulfa (Sulfonamide Allergy Intermediate Redness of Verified 04/12/23 15:02 Antibiotics) Skin shellfish derived Allergy Mild Migraine Verified 04/12/23 15:02 lisinopril AdvReac Mild Cough Verified 04/12/23 15:02 Medications Home Medications Medication Instructions Recorded Confirmed Last Taken fexofenadine 180 mg tablet 180 mg PO QAM 12/12/22 04/12/23 12/12/22 glucosamine 375 oz-uytgckpvb-jpd 1 tab PO QAM 12/12/22 04/12/23 12/12/22 no1 500 mg-C 15 mg-los 0.5 mg tablet (Klsjowlpimp-Ppigngnoody-PDB Complex) hydrochlorothiazide 12.5 mg capsule 12.5 mg PO QAM 12/12/22 04/12/23 12/12/22 losartan 100 mg tablet 100 mg PO QAM 12/12/22 04/12/23 12/12/22 montelukast 10 mg tablet 10 mg PO QAM 12/12/22 04/12/23 12/12/22 multivitamin 1 tab PO QAM 12/12/22 04/12/23 12/12/22 acetaminophen 325 mg tablet 650 mg PO Q4H PRN fever or pain 12/15/22 04/12/23 Unknown #30 tabs docusate sodium 100 mg capsule 100 mg PO BID 01/10/23 04/12/23 Unknown (Colace) lactobacillus combination no.4 3 3,000 mmu cells PO QAM 01/10/23 04/12/23 Unknown billion cell capsule (Probiotic) albuterol sulfate 90 mcg/actuation 2 puff inhalation Q6H PRN 04/12/23 04/12/23 Unknown aerosol inhaler Shortness Of Breath magnesium 500 mg tablet 500 mg PO QAM 04/12/23 04/12/23 Unknown Past Medical History Medical History (Updated 04/12/23 @ 15:57 by Melody Camacho PA-C) Asthma inhaler prn--per pt is well controlled Depression Diverticular disease Hypertension Past Family History Family History (Updated 04/12/23 @ 15:10 by Selene Hoff RN) Mother Breast cancer Other No family history of adverse response to anesthesia Past Surgical History Surgical History (Updated 04/12/23 @ 15:09 by Selene Hoff RN) History of colonoscopy [place] teeth extracted Social History Smoking Status: Former smoker Do You Dip or Chew Tobacco: No Smoking End Date: quit a long time ago Hx Alcohol Use: Yes Alcohol type: beer alcohol intake frequency: a few times a week Hx Substance Use: No substance use type: does not use Lab Results Anesthesia Preop Results Results Anesthesia Widget: WBC 5.80 K/ul (4.8-10.8) 03/22/23 Hgb 15.0 g/dl (14.0-18.0) 03/22/23 Hct 44.5 % (42.0-52.0) 03/22/23 Plt 295 K/uL (130-400) 03/22/23 Testing Laboratory Results 02/21/2023 SODIUM: 138 POTASSIUM: 4.2 CHLORIDE: 96 CO2: 29 BUN: 6 CREATININE: 0.8 GLUCOSE: 94 Other Testing Abdomen pelvis CT 12/12/22 1. Focal area of thickening/narrowing within a 7 cm segment of the distal descending colon with pericolonic inflammatory change and soft tissue thickening. This results in a large bowel obstruction and is therefore concerning for a colonic mass. An acute on chronic diverticulitis could also result in a similar appearance. Therefore, endoscopy recommended for further evaluation. 2. There is a punctate focus of pericolonic gas and a possible 1.3 cm pericolonic abscess adjacent to the thickened distal descending colon. Therefore, this raises the possibility of microperforation. 3. Hepatic steatosis. No definite hepatic lesions. 4. Normal appendix.
[~2023-04-19 09:47] MED LIST: LR 15ML/HR IV SCH
[2023-04-19] MEDS ORDERED: MIDAZOLAM HCL 1 MG/ML 2ML VIAL ONE (10:23)
[2023-04-19] MEDS ORDERED: fentaNYL citrate PF 100 MCG/2 ML VIAL ONE ×3 (10:23→13:57)
[2023-04-19] MEDS ORDERED: PROPOFOL IV EMULSION 10 MG/ML 20 ML VIAL IV ONE (10:24)
[2023-04-19] MEDS ORDERED: ROCURONIUM BROMIDE 10 MG/ML 5 ML VIAL IV ONE ×8 (10:25→14:00)
[2023-04-19] MEDS ORDERED: LIDOCAINE 2% 2 ML VIAL/AMP(20MG/ML) INFIL ONE (10:25)
[2023-04-19] MEDS ORDERED: ATROPINE SULFATE 0.1 MG/ML 10ML SYR IV PRN (10:32)
[2023-04-19] MEDS ORDERED: KETOROLAC 30 MG/ML VIAL IV PRN (10:32)
[2023-04-19] MEDS ORDERED: ONDANSETRON INJ 2 MG/ML 2 ML VIAL IV PRN (10:32)
[2023-04-19] MEDS ORDERED: PROMETHAZINE HCL 12.5 MG in SODIUM CHLORIDE 0.9% 50 ML IV PRN (10:32)
--- NOTE | 2023-04-19 11:10 | History & Physical Bridge Note ---
Date of Service April 19, 2023 History & Physical Bridge Note I have examined the patient, reviewed the History & Physical and in the interval since the performance of the History & Physical I have noted the following changes of clinical significance: no changes noted
[2023-04-19] MEDS ORDERED: BUPIVACAINE/EPINEPHRINE 0.5% MPF 1:200,000 30 ML VIAL ONE (11:31)
[2023-04-19] MEDS ORDERED: HYDROmorphone INJ 2 MG/ML SYR/VIAL ONE (12:04)
[2023-04-19] MEDS ORDERED: DEXAMETHASONE SOD INJ 4 MG/ML VIAL ONE (13:58)
--- NOTE | 2023-04-19 14:17 | Operative Report ---
PG Post Operative Report Pre & Post Diagnosis Operation Date: 04/19/23 11:25 Pre-Op Diagnosis: Diverticulitis Post-Op Diagnosis: Diverticulitis I identified the patient and participated in the time-out.: Yes Procedure Operation Date: 04/19/23 11:25 Actual Procedures Intraoperative Consult for assessment of retroperitoneum after conversion to open procedure during Laparoscopic to Open Sigmoid Colectomy. Dissection of retroperitoneum. Surgeon Ricardo Bryant, II, DO Instructor Weaving None Estimated Blood Loss 500 Findings Consistent with Post-Op Diagnosis Kidney was exposed. Adhesions within Gerota's fascia to the segment of colon being resected. Lower pole and lateral edge of kidney had been exposed. No sign of injury capsular tear or other problem. Ureter was able to be bluntly dissected and exposed. Ureter was peristalsing and appeared to be working appropriately. No signs of hydronephrosis no signs of injury. The area of exposure of the kidney and dissection of the retroperitoneum to remove the segment of colon was not in the proximity of the ureter and the ureter was found to be in a safe position with no signs of disruption or involvement in the resection plane. Specimens See report from Dr. Vazquez. Anesthesia Type General Complications none Disposition Disposition: Recovery Room Indications Intraoperative consult secondary to significant adhesions and difficult dissection of the left retroperitoneum during colon resection. Case had begun as laparoscopic and was converted to open due to severe adhesions and concern for possible mass. Description of Procedure Intraoperative consult. Patient has been consented for laparoscopic possible open colon resection. During the resection the colon was found to be adhered to the retroperitoneum and Gerota's fascia. A portion of the kidney was exposed and urologic assessment was requested. Patient had been prepped and draped in the standard fashion and after conversion to open had been adequately retracted using a self-containing retractor. A timeout have been completed prior to my arrival at the initiation of the procedure. Correct patient was confirmed with the surgical staff and operative surgeon. On assessment and discussion intraoperatively with Dr. Vazquez the entire exposed area of the left kidney was assessed. There was no signs of capsular tear. The tissue appeared to be free of any adhesions or any signs of invasion from the surrounding tissue. The section of colon was still attached to a portion of the retroperitoneum. The renal vessels were able to be palpated. The hilum and associated portion of the retroperitoneum were found to be considerably medial to the site of resection. The area of exposure appeared to be largely the lower pole lateral edge of the kidney without considerable issues or problems. Adequate retraction and blunt dissection was utilized to free some of the remaining Gerota's fascia and retroperitoneal fat from the edge of the kidney. A harmonic device was utilized by Dr. Vazquez to lyse some areas of adhesion still remaining on the retroperitoneum. A majority of the tissue was able to be bluntly dissected free by myself. At this point the remaining segment of colon that had been previously resected was able to be freed completely removed from the abdomen. With the segment of colon removed the entire retroperitoneum was better exposed and able to be visualized. The kidney was inspected. On palpation there was no major issue. The hilum was once again inspected. No signs of compromise or other issues. Medial to the area of resection the retroperitoneum was assessed. Utilizing a DeBakey's and blunt dissection the retroperitoneal fat along the medial edge was able to be gently dissected down the ureter was able to be partially exposed. Peristalsis of the ureter was appreciated and appeared appropriate. There were no signs of hydronephrosis. The location of the ureter was then tracked down towards the pelvis. The ureters location did not come into any significant close proximity to the resected areas. The ureter appeared to be intact within the intact retroperitoneum with a normal course down into the pelvis and no signs of areas of dissection or possible injury along the course of the ureter. The renal hilum was also contained in the retroperitoneum with no signs of issues, exposure, or areas of concern. The edge of the kidney was once again inspected with no major issues. Discussed possible closing the retroperitoneum however since there was only a small area of exposed kidney likely this can remain open as the retroperitoneal fat had been removed with the piece of resected colon. At this point with no signs of injury, problems, or other issues and the adhesed portion of retroperitoneum dissected free and removed with the colon it appeared that there was no further need for urologic assessment. Care was once again fully assumed by Dr. Vazquez. Please see his operative report for the full documentation of the entire surgical procedure. Patient was in stable condition with no major issues or problems on the transfer of care. No additional blood loss during the portion of procedure was involved with. I attest to the content of the Intraoperative Record and any orders documented therein. Any exceptions are noted below.
[2023-04-19] MEDS ORDERED: GLYCOPYRROLATE 0.2 MG/ML VIAL ONE (14:31)
[2023-04-19] MEDS ORDERED: NEOSTIGMINE METHYLSULFATE 1 MG/ML 10ML VIAL ONE (14:31)
[2023-04-19] MEDS ORDERED: ONDANSETRON INJ 2 MG/ML 2 ML VIAL ONE (14:49)
[2023-04-19] MEDS: HYDROmorphone INJ 1 MG/ML SYRINGE IV PRN ×6 (15:20→15:55)
[2023-04-19] MEDS ORDERED: SODIUM CHLORIDE 0.9% 50 ML BAG ONE (15:58)
[2023-04-19] MEDS ORDERED: PROMETHAZINE HCL INJ 25 MG/ML 1 ML VIAL ONE (15:59)
--- NOTE | 2023-04-19 16:41 | Anesthesiology Progress Note ---
Date of Service April 19, 2023 Anesthesia Post Procedure Vital Signs Vital Signs: Temp Pulse Pulse Resp BP Pulse Ox O2 Del Method 04/19/23 16:30 37 C 104 H 17 115/75 95 Room Air 04/19/23 16:20 91 H 14 105/66 100 Oxymask 04/19/23 16:10 86 17 105/75 98 Oxymask 04/19/23 16:00 98 H 18 109/70 99 Oxymask 04/19/23 15:50 93 H 22 119/81 99 Oxymask 04/19/23 15:40 102 H 22 126/81 99 Oxymask 04/19/23 15:30 81 20 136/95 100 Oxymask 04/19/23 15:20 97 H 23 136/95 97 Oxymask 04/19/23 15:14 36.3 C L 95 H 21 140/103 H 97 Oxymask 04/19/23 10:10 36.9 C 109 H 22 132/94 97 Room Air O2 Flow Rate 04/19/23 16:30 04/19/23 16:20 2 04/19/23 16:10 2 04/19/23 16:00 4 04/19/23 15:50 4 04/19/23 15:40 4 04/19/23 15:30 4 04/19/23 15:20 6 04/19/23 15:14 6 04/19/23 10:10 Pain Intensity Abdomen: Pain Intensity: 3 Transfer of Care Handoff Completed per policy Notes Mental Status: alert / awake / arousable Patient Amnestic to Procedure: Yes Nausea / Vomiting: adequately controlled Pain: adequately controlled Airway Patency, RR, SpO2: stable & adequate BP & HR: stable & adequate Hydration State: stable & adequate Anesthetic Complications: no major complications apparent and Pt Satisfied with anesthetic care
[2023-04-19] MEDS ORDERED: ALBUTEROL HFA 8 GM INHALER INH PRN (16:58)
[2023-04-19] MEDS: LACTATED RINGER'S 1,000 ML IV SCH (17:00)
[2023-04-19] MEDS: ACETAMINOPHEN 1,000 MG/100 ML VIAL IV SCH (17:31)
[2023-04-19] MEDS: MoRPHine SULFATE 2 MG/ML CARP IV PRN (17:38)
[2023-04-19] MEDS ORDERED: INFLUENZA VIRUS QUADRIVALENT VACCINE (IIV4) 0.5 ML SYR IM ONE (17:45)
--- NOTE | 2023-04-19 18:38 | Operative Report ---
PG Post Operative Report Pre & Post Diagnosis Operation Date: 04/19/23 11:25 Pre-Op Diagnosis: Diverticulitis Post-Op Diagnosis: Diverticulitis and inflammatory mass I identified the patient and participated in the time-out.: Yes Procedure Operation Date: 04/19/23 11:25 Actual Procedures p Laparoscopic converted to open Left colon and Sigmoid Colectomy(Not Applicable) ; mobilization of splenic flexure- Erasto Vazquez DO Surgeon Erasto Vazquez DO Pleating Supervisor connie Hutchison; wanda Roberts Estimated Blood Loss 500 Findings Consistent with Post-Op Diagnosis Specimens left and sigmoid colon. Anesthesia Type General Complications none Disposition Disposition: Recovery Room Description of Procedure After informed consent was obtained the patient was taken the operating room and placed in supine position. After successful intubation a [place] catheter was placed sterilely. The entire abdomen was shaved and sterilely prepped and draped in usual fashion. A supraumbilical incision was made with an 11 blade scalpel and carried down through the soft tissue using cautery. Anterior fascia was opened using cautery and two #0 Vicryl stay sutures were placed. Peritoneum was entered using blunt finger penetration and a finger sweep performed. A 12 mm Zelaya trocar was placed and the abdomen was insufflated to 20 mmHg. Laparoscope was inserted and the abdomen was examined in 360 degrees. A right lower quadrant 12 mm port and a right mid abdominal 5 mm port were placed under direct vision. The patient was placed in a Trendelenburg position and slightly airplaned to the right. I was able to see a tattoo cole in the sigmoid colon. Well proximal to this was a very firm hard inflammatory mass of the left colon. It had attached itself and almost fistulized to the abdominal wall and was tightly adherent to the left kidney. The remainder of the large bowel appeared relatively normal. There was a second tattoo cole proximal to the inflammatory mass. I tried for quite some time to detach the mass from the abdominal wall. It was extremely firm and there was no plane between the mass and the abdominal wall as well as retroperitoneum. I realized that this was going to be futile and I was going to risk perforating the bowel. At this point I converted to an open procedure. All the trocars were removed and the abdomen desufflated. I made a midline incision from above the umbilicus around the umbilicus and down to the pubic symphysis. Cautery was used to open the incision to both poles. A Bookwalter retractor was used throughout the case to help with exposure. It took me quite some time to detach this very firm very hard mass from the left mid abdomen. I used small amounts of cautery but primarily blunt finger fractionation. Eventually I was able to get it detached. Next I opened the whi te line of T[place]t using cautery and finger fractionation from the peritoneal reflection up to and around the splenic flexure. I divided the sigmoid colon just distal to the first tattoo cole using a LUIZ purple cartridge stapler. I then used a LigaSure device to come up the mesentery. The mass again was basically adhesed to the left kidney. I had opened Gerota's fascia to take down the mesentery. I did call Dr. Bryant from urology to come and evaluate the kidney. We examined all the anatomy as well as the left ureter and there did not appear to be any issue. Next I transected the transverse colon just distal to the middle colic vessels using a second LUIZ purple cartridge stapler. We then completed taking down the mesentery using the LigaSure device. We handed the specimen off to be sent to pathology. I had to mobilize the remainder of the transverse colon. I also had to take down the gastrocolic ligament as well as a portion of the omentum. Fortunately he had a redundant colon and I had plenty of colon to reach down to the pelvic brim. Next we took off the staple line of the distal transverse colon. I measured the lumen to be about 31 mm with sizers. 2-0 silk was used a hand so a pursestring. The anvil of a 31 mm circular stapler was placed into the lumen and the pursestring secured. At this point we changed our gloves. We then dilated the rectum using sizers. The handle of a 31 mm circular stapler was brought in through the anus into the rectal stump. The spike was deployed anterior to the staple line and connected to the anvil. They were secured together and fired creating a circular functional end-to-end anastomosis. Upon removing the anvil both donuts were intact. I filled the pelvis with sterile saline pinched off the bowel proximal to the anastomosis and we inflated it via a rigid proctoscope. There was no evidence for any anastomotic leak. Thorough irrigation of the entire abdomen was performed. No other gross abnormalities were identified. A 10 flat Bradly-Tejeda drain was brought in through one of the port sites and placed in the pelvis and secured to the skin using 2-0 nylon. There was adequate hemostasis. The fascia was closed using #1 looped PDS starting either pole running them and securing them together in the midline. Soft tissue was irrigated and skin was closed using skin woody over quarter inch [place] drain. Silver dressing was applied. The patient was awakened extubated and transferred recovery in stable condition. My nurse practitioner was present through the entire case was instrumental in providing exposure and assisting with the bowel resection anastomosis and wound closure. My physician metallurgical laboratory assistant was present for the anastomosis part of the case and was instrumental in assisting with the stapling/rectal portion of the case. I attest to the content of the Intraoperative Record and any orders documented therein. Any exceptions are noted below.
[2023-04-19] MEDS: cefOXitin 2,000 MG in DEXTROSE 5% 50 ML IV SCH (18:40)
[2023-04-19] MEDS: MoRPHine SULFATE 4 MG/ML 1 ML CARP\\VIAL IV PRN (21:54)
[2023-04-20] MEDS: cefOXitin 2,000 MG in DEXTROSE 5% 50 ML IV SCH ×3 (00:05→11:13)
[2023-04-20] MEDS: MoRPHine SULFATE 4 MG/ML 1 ML CARP\\VIAL IV PRN ×5 (01:14→19:51)
[2023-04-20] MEDS: ACETAMINOPHEN 1,000 MG/100 ML VIAL IV SCH ×3 (01:47→17:37)
[2023-04-20] MEDS: LACTATED RINGER'S 1,000 ML IV SCH (03:32)
[2023-04-20 07:54] LABS: Basophils # (auto) 0.01 K/uL (0.00-0.20); Basophils % (auto) 0.1 %; Hematocrit (blood only) 38.7 % (42.0-52.0); Hemoglobin 12.4 g/dl (14.0-18.0); Immature Granulocytes # (auto) 0.04 K/uL (0.01-0.20); Immature Granulocytes % (auto) 0.4 %; Lymphocytes # (auto) 0.94 K/uL (1.20-3.40); Lymphocytes % (auto) 9.4 %; Mean Corpuscular Hemoglobin 30.2 pg (25.0-34.0); Mean Corpuscular Volume 94.2 fL (80.0-100.0); Mean Platelet Volume 10.8 fL (9.4-12.4); Monocytes # (auto) 1.02 K/uL (0.11-0.59); Monocytes % (auto) 10.2 %; Neutrophils # (auto) 8.03 K/uL (1.40-6.50); Neutrophils % (auto) 79.9 %; Platelet Count 271 K/uL (130-400); RDW Standard Deviation 47.6 fL (36.4-46.3); Red Blood Count 4.11 M/uL (4.70-6.10); White Blood Count 10.04 K/ul (4.8-10.8)
--- NOTE | 2023-04-20 07:56 | Surgery Progress Note ---
Date of Service April 20, 2023 Assessment & Plan (1) Large bowel obstruction: Plan: Postoperative day #1 from laparoscopy converted to open the left and sigmoid colectomy's. Doing as expected. We will keep Perkins in place for another 24 hours for comfort. He can have ice chips today but we will be progressing his diet very slowly as he has at a high risk for ileus. Increase activity slowly each day. Dr. Agudelo covering for the weekend Admission and Anticipated Discharge Date Admission Date: April 19, 2023 Subjective Patient seen. Having expected postoperative pain but overall doing okay. Physical Exam Physical Exam: Alert. No acute distress Abdomen with expected tenderness. RONNY with serous fluid Results & Data Vital Signs (Past 12 Hours) Vital Signs Temp Pulse Resp BP Pulse Ox O2 Del Method 04/20/23 03:22 37.1 C 96 H 18 107/72 94 Room Air 04/19/23 22:26 36.7 C 100 H 20 100/68 95 Room Air 04/19/23 20:00 36.9 C 79 18 101/67 95 Room Air PG Care Time/CCT Total # of Minutes Spent Total Time Spent with Patient: Total time spent is greater than 50% in coordination of care (as documented) at patient's floor/unit and/or counseling patient: Coding Level of Care Code 55967 Post Operative Follow-Up Diagnoses Large bowel obstruction K56.609
[2023-04-20 08:13] LABS: BUN Creatinine Ratio 12.3 (10-20); Calcium 8.4 mg/dl (8.6-10.3); Creatinine Clr Calc Pharmacy 166.8 ml/min; Est GFR (African American) 128.8 ml/min; Est GFR (Non-African American) 111.2 ml/min; Potassium 3.6 mmol/L (3.5-5.1)
[2023-04-20] MEDS: D5W AND 1/2NSS + 20MEQ KCL 20 MEQ/1,000 ML BAG IV SCH ×2 (10:17→19:39)
[2023-04-20] MEDS: MoRPHine SULFATE 2 MG/ML CARP IV PRN (17:53)
[2023-04-21] MEDS: MoRPHine SULFATE 4 MG/ML 1 ML CARP\\VIAL IV PRN ×4 (00:43→10:07)
[2023-04-21] MEDS: ACETAMINOPHEN 1,000 MG/100 ML VIAL IV SCH ×3 (01:50→17:32)
[2023-04-21] MEDS: D5W AND 1/2NSS + 20MEQ KCL 20 MEQ/1,000 ML BAG IV SCH ×3 (01:54→17:33)
[2023-04-21] MEDS: ONDANSETRON INJ 2 MG/ML 2 ML VIAL IV PRN (05:13)
[2023-04-21 05:14] LABS: BUN Creatinine Ratio 6.7 (10-20); Calcium 8.2 mg/dl (8.6-10.3); Creatinine Clr Calc Pharmacy 180.2 ml/min; Est GFR (Non-African American) 114.7 ml/min; Potassium 3.6 mmol/L (3.5-5.1)
[2023-04-21 05:28] LABS: Basophils # (auto) 0.03 K/uL (0.00-0.20); Basophils % (auto) 0.3 %; Eosinophils # (auto) 0.03 K/uL (0.00-0.50); Eosinophils % (auto) 0.3 %; Hematocrit (blood only) 35.8 % (42.0-52.0); Hemoglobin 11.7 g/dl (14.0-18.0); Immature Granulocytes # (auto) 0.05 K/uL (0.01-0.20); Immature Granulocytes % (auto) 0.4 %; Lymphocytes # (auto) 1.09 K/uL (1.20-3.40); Lymphocytes % (auto) 9.3 %; Mean Corpuscular Hemoglobin 30.6 pg (25.0-34.0); Mean Corpuscular Hgb Conc 32.7 g/dL (32.0-36.0); Mean Corpuscular Volume 93.7 fL (80.0-100.0); Mean Platelet Volume 10.8 fL (9.4-12.4); Monocytes # (auto) 0.97 K/uL (0.11-0.59); Monocytes % (auto) 8.3 %; Neutrophils # (auto) 9.53 K/uL (1.40-6.50); Neutrophils % (auto) 81.4 %; Platelet Count 245 K/uL (130-400); RDW Coefficient of Variation 13.6 % (11.5-14.5); RDW Standard Deviation 46.8 fL (36.4-46.3); Red Blood Count 3.82 M/uL (4.70-6.10)
[2023-04-21] MEDS ORDERED: NALOXONE HCL 0.4 MG/1 ML VIAL/CARP IV PRN (11:03)
--- NOTE | 2023-04-21 11:03 | Surgery Progress Note ---
Date of Service April 21, 2023 Assessment & Plan (1) Large bowel obstruction: Plan: Postoperative day #2 from laparoscopy converted to open the left and sigmoid colectomy's. significant pain affecting ability to ambulate/OOB. We will keep Perkins in place for another 24 hours for comfort. Continue ice chips/sips; will start on [facility] for better pain control and easier ability to move around. will watch carefully. recheck labs tomorrow Admission and Anticipated Discharge Date Admission Date: April 19, 2023 Subjective doing ok; significant pain overnight; no nausea/vomiting; fevers to 38.3; has not been out of bed since pharmacy helper yesterday due to pain Physical Exam Physical Exam: NAD, A&Ox3 38.3/37.9; slight tachy; BP nl Abd - soft, TTP diffusely; mild distention RONNY serosanguinous drainage Results & Data Vital Signs (Past 12 Hours) Vital Signs Temp Pulse Resp BP Pulse Ox O2 Del Method 04/21/23 07:50 37.9 C H 102 H 18 118/75 92 Room Air 04/21/23 04:51 37.4 C 04/21/23 02:10 38.3 C H Laboratory Results 04/21/23 04/21/23 Range/Units 04:33 04:33 WBC 11.70 H (4.8-10.8) K/ul RBC 3.82 L (4.70-6.10) M/uL Hgb 11.7 L (14.0-18.0) g/dl Hct 35.8 L (42.0-52.0) % MCV 93.7 (80.0-100.0) fL MCH 30.6 (25.0-34.0) pg MCHC 32.7 (32.0-36.0) g/dL RDW Std Deviation 46.8 H (36.4-46.3) fL RDW Coeff of Zoraida 13.6 (11.5-14.5) % Plt Count 245 (130-400) K/uL MPV 10.8 (9.4-12.4) fL Immature Gran % (Auto) 0.4 % Neut % (Auto) 81.4 % Lymph % (Auto) 9.3 % [place] % (Auto) 8.3 % Eos % (Auto) 0.3 % Baso % (Auto) 0.3 % Neut # (Auto) 9.53 H (1.40-6.50) K/uL Lymph # (Auto) 1.09 L (1.20-3.40) K/uL [place] # (Auto) 0.97 H (0.11-0.59) K/uL Eos # (Auto) 0.03 (0.00-0.50) K/uL Baso # (Auto) 0.03 (0.00-0.20) K/uL Immature Gran # (Auto) 0.05 (0.01-0.20) K/uL Sodium 133 L (136-145) mmol/L Potassium 3.6 (3.5-5.1) mmol/L Chloride 102 (98-107) mmol/L Carbon Dioxide 27 (21-32) mmol/L Anion Gap 4 (3-11) BUN 5 L (6-23) mg/dl Creatinine 0.75 (0.6-1.4) mg/dl Est Cr Clr Drug Dosing 180.2 ml/min Est GFR ( Amer) 133.0 ml/min Est GFR (Non-Af Amer) 114.7 ml/min BUN/Creatinine Ratio 6.7 L (10-20) Glucose 108 H (70-99(Fasting)) mg/dl Calcium 8.2 L (8.6-10.3) mg/dl
[2023-04-21] MEDS: MoRPHine SULFATE PCA 30 MG/30 ML IV PRN (11:51)
[2023-04-21] MEDS: SODIUM CHLORIDE 0.9% 1,000 ML IV SCH (12:52)
[2023-04-22] MEDS: ACETAMINOPHEN 1,000 MG/100 ML VIAL IV SCH ×2 (01:38→09:41)
[2023-04-22] MEDS: D5W AND 1/2NSS + 20MEQ KCL 20 MEQ/1,000 ML BAG IV SCH ×3 (01:40→17:49)
[2023-04-22] MEDS: MoRPHine SULFATE PCA 30 MG/30 ML IV PRN (07:40)
[2023-04-22 08:18] LABS: Basophils # (auto) 0.04 K/uL (0.00-0.20); Basophils % (auto) 0.4 %; Eosinophils # (auto) 0.18 K/uL (0.00-0.50); Eosinophils % (auto) 1.6 %; Hematocrit (blood only) 38.4 % (42.0-52.0); Hemoglobin 12.5 g/dl (14.0-18.0); Immature Granulocytes # (auto) 0.05 K/uL (0.01-0.20); Immature Granulocytes % (auto) 0.5 %; Lymphocytes # (auto) 0.85 K/uL (1.20-3.40); Lymphocytes % (auto) 7.8 %; Mean Corpuscular Hemoglobin 30.3 pg (25.0-34.0); Mean Corpuscular Hgb Conc 32.6 g/dL (32.0-36.0); Mean Platelet Volume 10.7 fL (9.4-12.4); Monocytes % (auto) 8.2 %; Neutrophils # (auto) 8.89 K/uL (1.40-6.50); Neutrophils % (auto) 81.5 %; Platelet Count 263 K/uL (130-400); RDW Coefficient of Variation 13.4 % (11.5-14.5); RDW Standard Deviation 45.9 fL (36.4-46.3); Red Blood Count 4.13 M/uL (4.70-6.10); White Blood Count 10.91 K/ul (4.8-10.8)
[2023-04-22 08:36] LABS: BUN Creatinine Ratio 7.5 (10-20); Calcium 8.6 mg/dl (8.6-10.3); Creatinine Clr Calc Pharmacy 201.7 ml/min; Est GFR (African American) 139.3 ml/min; Est GFR (Non-African American) 120.2 ml/min; Potassium 3.9 mmol/L (3.5-5.1)
[2023-04-22] MEDS: ONDANSETRON INJ 2 MG/ML 2 ML VIAL IV PRN (09:50)
--- NOTE | 2023-04-22 09:55 | Surgery Progress Note ---
Date of Service April 22, 2023 Assessment & Plan (1) Large bowel obstruction: Plan: Postoperative day #3 from laparoscopy converted to open the left and sigmoid colectomy's. significant pain affecting ability to ambulate/OOB. 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 WBC improved to 10 from 11 yesterday. Aggressive OOB/ambulation today Admission and Anticipated Discharge Date Admission Date: April 19, 2023 Subjective doing ok; pain somewhat improved with F[employer] SOCIAL WORKER but still fairly significant; no nausea/vomiting; fevers to 38.3; sluggish to get out of bed Physical Exam Physical Exam: NAD, A&Ox3 38.4/37.4; slight tachy; BP nl Abd - soft, TTP diffusely; mild distention incision C/D/I with woody RONNY serosanguinous drainage Results & Data Vital Signs (Past 12 Hours) Vital Signs Temp Pulse Resp BP Pulse Ox O2 Del Method O2 Flow Rate 04/22/23 07:46 37.4 C 94 H 18 131/87 93 Room Air 04/22/23 04:22 37.1 C 98 H 18 153/97 H 94 Room Air 04/22/23 00:29 38.4 C H 109 H 18 149/93 H 94 Nasal Cannula 2 Laboratory Results 04/22/23 04/22/23 Range/Units 07:37 07:37 WBC 10.91 H (4.8-10.8) K/ul RBC 4.13 L (4.70-6.10) M/uL Hgb 12.5 L (14.0-18.0) g/dl Hct 38.4 L (42.0-52.0) % MCV 93.0 (80.0-100.0) fL MCH 30.3 (25.0-34.0) pg MCHC 32.6 (32.0-36.0) g/dL RDW Std Deviation 45.9 (36.4-46.3) fL RDW Coeff of Zoraida 13.4 (11.5-14.5) % Plt Count 263 (130-400) K/uL MPV 10.7 (9.4-12.4) fL Immature Gran % (Auto) 0.5 % Neut % (Auto) 81.5 % Lymph % (Auto) 7.8 % [place] % (Auto) 8.2 % Eos % (Auto) 1.6 % Baso % (Auto) 0.4 % Neut # (Auto) 8.89 H (1.40-6.50) K/uL Lymph # (Auto) 0.85 L (1.20-3.40) K/uL [place] # (Auto) 0.90 H (0.11-0.59) K/uL Eos # (Auto) 0.18 (0.00-0.50) K/uL Baso # (Auto) 0.04 (0.00-0.20) K/uL Immature Gran # (Auto) 0.05 (0.01-0.20) K/uL Sodium 135 L (136-145) mmol/L Potassium 3.9 (3.5-5.1) mmol/L Chloride 101 (98-107) mmol/L Carbon Dioxide 29 (21-32) mmol/L Anion Gap 5 (3-11) BUN 5 L (6-23) mg/dl Creatinine 0.67 (0.6-1.4) mg/dl Est Cr Clr Drug Dosing 201.7 ml/min Est GFR ( Amer) 139.3 ml/min Est GFR (Non-Af Amer) 120.2 ml/min BUN/Creatinine Ratio 7.5 L (10-20) Glucose 105 H (70-99(Fasting)) mg/dl Calcium 8.6 (8.6-10.3) mg/dl
[2023-04-23] MEDS: D5W AND 1/2NSS + 20MEQ KCL 20 MEQ/1,000 ML BAG IV SCH (01:02)
[2023-04-23] MEDS: ONDANSETRON INJ 2 MG/ML 2 ML VIAL IV PRN ×3 (03:33→15:19)
[2023-04-23] MEDS: SODIUM CHLORIDE 0.9% 1,000 ML IV SCH (04:49)
[2023-04-23 07:45] LABS: Basophils # (auto) 0.03 K/uL (0.00-0.20); Basophils % (auto) 0.3 %; Eosinophils # (auto) 0.07 K/uL (0.00-0.50); Eosinophils % (auto) 0.7 %; Hematocrit (blood only) 37.1 % (42.0-52.0); Hemoglobin 11.9 g/dl (14.0-18.0); Immature Granulocytes # (auto) 0.07 K/uL (0.01-0.20); Immature Granulocytes % (auto) 0.7 %; Lymphocytes # (auto) 0.74 K/uL (1.20-3.40); Mean Corpuscular Hemoglobin 30.1 pg (25.0-34.0); Mean Corpuscular Hgb Conc 32.1 g/dL (32.0-36.0); Mean Corpuscular Volume 93.7 fL (80.0-100.0); Mean Platelet Volume 10.4 fL (9.4-12.4); Monocytes # (auto) 0.89 K/uL (0.11-0.59); Monocytes % (auto) 8.4 %; Neutrophils # (auto) 8.75 K/uL (1.40-6.50); Neutrophils % (auto) 82.9 %; Platelet Count 299 K/uL (130-400); RDW Coefficient of Variation 13.3 % (11.5-14.5); RDW Standard Deviation 45.7 fL (36.4-46.3); Red Blood Count 3.96 M/uL (4.70-6.10); White Blood Count 10.55 K/ul (4.8-10.8)
[2023-04-23 07:52] LABS: BUN Creatinine Ratio 8.3 (10-20); Calcium 8.4 mg/dl (8.6-10.3); Creatinine Clr Calc Pharmacy 225.2 ml/min; Est GFR (African American) 145.8 ml/min; Est GFR (Non-African American) 125.8 ml/min; Potassium 3.9 mmol/L (3.5-5.1)
[2023-04-23] MEDS ORDERED: ENOXAPARIN INJ 40 MG/0.4 ML SYR SQ SCH (09:00)
--- NOTE | 2023-04-23 09:37 | Surgery Progress Note ---
Date of Service April 23, 2023 Assessment & Plan (1) History of colon surgery: Plan: Slowly improving. His pain is less today. White blood cell count is now normal he had no fevers overnight. I have encouraged him to continue to aggressively use his incentive spirometer as well as ambulation. We are awaiting return of bowel function before initiating diet. We will keep his DUMPMAN for another day. Admission and Anticipated Discharge Date Admission Date: April 19, 2023 Subjective Patient seen. He is stating that he is finally starting to feel little bit better and believes he will do a lot of walking today. He is burping a lot but not passing anything from below. Physical Exam Physical Exam: Alert. No acute distress His incision is clean dry and intact RONNY drain with pink serous output Results & Data Vital Signs (Past 12 Hours) Vital Signs Temp Pulse Resp BP BP Pulse Ox O2 Del Method 04/23/23 07:49 37.1 C 96 H 16 124/87 95 Room Air 04/23/23 04:09 36.8 C 107 H 18 128/80 93 Room Air 04/23/23 00:00 Room Air 04/22/23 23:32 37.3 C 101 H 20 121/81 93 Room Air PG Care Time/CCT Total # of Minutes Spent Total Time Spent with Patient: Total time spent is greater than 50% in coordination of care (as documented) at patient's floor/unit and/or counseling patient: Coding Level of Care Code 62500 Post Operative Follow-Up Diagnoses History of colon surgery Z98.890
[2023-04-23] MEDS: ACETAMINOPHEN 1,000 MG/100 ML VIAL IV SCH ×2 (10:15→17:45)
[2023-04-23] MEDS: MoRPHine SULFATE PCA 30 MG/30 ML IV PRN (10:20)
[2023-04-23] MEDS: D5NSS + 20MEQ KCL 20 MEQ/1,000 ML BAG IV SCH ×2 (11:32→19:38)
[2023-04-24] MEDS: ACETAMINOPHEN 1,000 MG/100 ML VIAL IV SCH ×3 (01:30→17:11)
[2023-04-24] MEDS: D5NSS + 20MEQ KCL 20 MEQ/1,000 ML BAG IV SCH ×3 (03:43→20:52)
[2023-04-24 07:15] LABS: Basophils # (auto) 0.03 K/uL (0.00-0.20); Basophils % (auto) 0.4 %; Eosinophils # (auto) 0.22 K/uL (0.00-0.50); Eosinophils % (auto) 2.9 %; Hematocrit (blood only) 34.2 % (42.0-52.0); Hemoglobin 11.3 g/dl (14.0-18.0); Immature Granulocytes # (auto) 0.05 K/uL (0.01-0.20); Immature Granulocytes % (auto) 0.7 %; Lymphocytes # (auto) 0.77 K/uL (1.20-3.40); Lymphocytes % (auto) 10.3 %; Mean Corpuscular Hemoglobin 30.7 pg (25.0-34.0); Mean Corpuscular Volume 92.9 fL (80.0-100.0); Mean Platelet Volume 10.6 fL (9.4-12.4); Monocytes # (auto) 0.74 K/uL (0.11-0.59); Monocytes % (auto) 9.9 %; Neutrophils % (auto) 75.8 %; Platelet Count 254 K/uL (130-400); RDW Coefficient of Variation 13.4 % (11.5-14.5); RDW Standard Deviation 46.1 fL (36.4-46.3); Red Blood Count 3.68 M/uL (4.70-6.10); White Blood Count 7.51 K/ul (4.8-10.8)
[2023-04-24 07:30] LABS: BUN Creatinine Ratio 6.7 (10-20); Calcium 8.3 mg/dl (8.6-10.3); Creatinine Clr Calc Pharmacy 225.2 ml/min; Est GFR (African American) 145.8 ml/min; Est GFR (Non-African American) 125.8 ml/min; Potassium 3.8 mmol/L (3.5-5.1)
[2023-04-24] MEDS ORDERED: oxyCODONE HCL IR 5 MG TAB (IMMEDIATE RELEASE) PO PRN (08:19)
--- NOTE | 2023-04-24 09:01 | Surgery Progress Note ---
Date of Service April 24, 2023 Assessment & Plan (1) History of colon surgery: Plan: Continues to improve. He is now afebrile and his white blood cell count is down to 7. We are waiting for return of bowel function. We will let him try clear liquids today and see how that goes. 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 Continue to encourage ambulation and incentive spirometry Admission and Anticipated Discharge Date Admission Date: April 19, 2023 Subjective Patient seen. He states he continues to slowly feel better. He did a lot of walking yesterday and began passing gas last night. He had 1 small episode of nausea yesterday in the afternoon but this has resolved. He had no further fevers overnight Physical Exam Physical Exam: Alert sitting in chair no acute distress. Incision looks good Drain with serous fluid Results & Data Vital Signs (Past 12 Hours) Vital Signs Temp Pulse Resp BP BP Pulse Ox O2 Del Method 04/24/23 07:12 36.5 C 89 17 103/69 97 Room Air 04/24/23 04:31 36.9 C 85 18 130/87 96 Room Air 04/23/23 22:18 36.8 C 95 H 16 125/84 95 Room Air PG Care Time/CCT Total # of Minutes Spent Total Time Spent with Patient: Total time spent is greater than 50% in coordination of care (as documented) at patient's floor/unit and/or counseling patient: Coding Level of Care Code 14024 Post Operative Follow-Up Diagnoses History of colon surgery Z98.890
[2023-04-24] MEDS: SODIUM CHLORIDE 0.9% 1,000 ML IV SCH ×2 (09:23→12:31)
[2023-04-24] MEDS: oxyCODONE HCL IR 5 MG TAB (IMMEDIATE RELEASE) PO PRN (13:11)
[2023-04-24] MEDS: IBUPROFEN 200 MG TAB PO PRN (18:50)
[2023-04-25] MEDS: ACETAMINOPHEN 1,000 MG/100 ML VIAL IV SCH ×3 (00:13→16:41)
[2023-04-25 07:42] LABS: BUN Creatinine Ratio 7.9 (10-20); Basophils # (auto) 0.04 K/uL (0.00-0.20); Basophils % (auto) 0.5 %; Calcium 8.5 mg/dl (8.6-10.3); Creatinine Clr Calc Pharmacy 214.5 ml/min; Eosinophils % (auto) 2.5 %; Est GFR (African American) 142.9 ml/min; Est GFR (Non-African American) 123.3 ml/min; Hematocrit (blood only) 33.5 % (42.0-52.0); Hemoglobin 11.1 g/dl (14.0-18.0); Immature Granulocytes # (auto) 0.04 K/uL (0.01-0.20); Immature Granulocytes % (auto) 0.5 %; Lymphocytes # (auto) 0.71 K/uL (1.20-3.40); Lymphocytes % (auto) 8.9 %; Mean Corpuscular Hemoglobin 30.2 pg (25.0-34.0); Mean Corpuscular Hgb Conc 33.1 g/dL (32.0-36.0); Mean Corpuscular Volume 91.3 fL (80.0-100.0); Monocytes % (auto) 8.7 %; Neutrophils # (auto) 6.32 K/uL (1.40-6.50); Neutrophils % (auto) 78.9 %; Platelet Count 286 K/uL (130-400); Potassium 3.3 mmol/L (3.5-5.1); RDW Coefficient of Variation 13.4 % (11.5-14.5); Red Blood Count 3.67 M/uL (4.70-6.10); White Blood Count 8.01 K/ul (4.8-10.8)
[2023-04-25] MEDS: oxyCODONE HCL IR 5 MG TAB (IMMEDIATE RELEASE) PO PRN ×2 (08:03→13:33)
--- NOTE | 2023-04-25 08:28 | Surgery Progress Note ---
Date of Service April 25, 2023 Assessment & Plan (1) History of colon surgery: Plan: Awaiting full return of bowel function before advancing his diet We will start antibiotics due to some mild cellulitis at the incision likely stemming from dislodgment of his [place] drain. Adequate pain control. Continue ambulation. White blood cell count is normal he remains afebrile at this point Discussed his pathology report Admission and Anticipated Discharge Date Admission Date: April 19, 2023 Subjective Patient seen. Feeling okay. He is feeling some pressure in the lower abdomen. He continues to pass gas. He does feel bloated although has had no nausea and is tolerating a clear liquid diet. Physical Exam Physical Exam: Alert. No acute distress The lower pole of the [place] incision has worked its way superior and is now under the skin. There is some mild erythema around the lower pole of the incision. No purulent drainage. RONNY drain with serous output. Results & Data Vital Signs (Past 12 Hours) Vital Signs Temp Pulse Resp BP BP Pulse Ox O2 Del Method 04/25/23 07:29 37 C 88 16 135/91 97 Room Air 04/25/23 00:11 36.8 C 91 H 18 116/77 96 Room Air 04/24/23 20:35 36.9 C 95 H 16 132/90 96 Room Air PG Care Time/CCT Total # of Minutes Spent Total Time Spent with Patient: Total time spent is greater than 50% in coordination of care (as documented) at patient's floor/unit and/or counseling patient: Coding Level of Care Code 77436 Post Operative Follow-Up Diagnoses History of colon surgery Z98.890
[2023-04-25] MEDS ORDERED: PIPERACILLIN/TAZOBACTAM 4.5 GM in DEXTROSE 5% MINI-B 100 ML IV ONE (08:30)
[2023-04-25] MEDS: D5NSS + 20MEQ KCL 20 MEQ/1,000 ML BAG IV SCH ×2 (09:13→21:43)
[2023-04-25] MEDS ORDERED: POTASSIUM CHLORIDE CRTAB 20 MEQ TABCR PO STA (09:29)
[2023-04-25] MEDS: PIPERACILLIN/TAZOBACTAM 4.5 GM in DEXTROSE 5% MINI-B 100 ML IV SCH ×2 (14:03→21:42)
[2023-04-25] MEDS: ONDANSETRON INJ 2 MG/ML 2 ML VIAL IV PRN ×2 (14:39→20:21)
[2023-04-25] MEDS: PROMETHAZINE HCL 12.5 MG in SODIUM CHLORIDE 0.9% 50 ML IV PRN (22:25)
[2023-04-26] MEDS: ACETAMINOPHEN 1,000 MG/100 ML VIAL IV SCH (01:05)
[2023-04-26] MEDS: ONDANSETRON INJ 2 MG/ML 2 ML VIAL IV PRN (02:38)
[2023-04-26] MEDS: PIPERACILLIN/TAZOBACTAM 4.5 GM in DEXTROSE 5% MINI-B 100 ML IV SCH ×3 (05:56→21:39)
[2023-04-26] MEDS: PROMETHAZINE HCL 12.5 MG in SODIUM CHLORIDE 0.9% 50 ML IV PRN (06:23)
[2023-04-26 07:47] LABS: Basophils # (auto) 0.03 K/uL (0.00-0.20); Basophils % (auto) 0.3 %; Eosinophils # (auto) 0.02 K/uL (0.00-0.50); Eosinophils % (auto) 0.2 %; Hematocrit (blood only) 37.9 % (42.0-52.0); Hemoglobin 12.6 g/dl (14.0-18.0); Immature Granulocytes # (auto) 0.05 K/uL (0.01-0.20); Immature Granulocytes % (auto) 0.5 %; Lymphocytes # (auto) 0.59 K/uL (1.20-3.40); Lymphocytes % (auto) 5.6 %; Mean Corpuscular Hemoglobin 30.1 pg (25.0-34.0); Mean Corpuscular Hgb Conc 33.2 g/dL (32.0-36.0); Mean Corpuscular Volume 90.5 fL (80.0-100.0); Mean Platelet Volume 10.9 fL (9.4-12.4); Monocytes % (auto) 8.5 %; Neutrophils # (auto) 9.02 K/uL (1.40-6.50); Neutrophils % (auto) 84.9 %; Platelet Count 425 K/uL (130-400); RDW Coefficient of Variation 13.5 % (11.5-14.5); RDW Standard Deviation 45.1 fL (36.4-46.3); Red Blood Count 4.19 M/uL (4.70-6.10); White Blood Count 10.61 K/ul (4.8-10.8)
[2023-04-26 08:06] LABS: BUN Creatinine Ratio 9.4 (10-20); Calcium 8.5 mg/dl (8.6-10.3); Creatinine Clr Calc Pharmacy 211.2 ml/min; Est GFR (African American) 141.9 ml/min; Est GFR (Non-African American) 122.5 ml/min; Potassium 4.4 mmol/L (3.5-5.1)
--- NOTE | 2023-04-26 08:15 | Surgery Progress Note ---
Date of Service April 26, 2023 Assessment & Plan (1) History of colon surgery: Plan: Patient with likely ileus. KUB is ordered and he has now agreed to an NG tube which we will have nurses place. We will replace his output with boluses. We will make him n.p.o. We will also take out a couple of the woody from the lower incision. Continue IV antibiotics. Admission and Anticipated Discharge Date Admission Date: April 19, 2023 Subjective Patient seen. Around 430 this morning began having some severe nausea with emesis. He was offered NG tube but declined it at that time. He continues to feel bloated and nauseated. Physical Exam Physical Exam: Alert. Appears mildly ill secondary to nausea. Abdomen is distended. He continues to have some lower pole incisional erythema. No active purulent drainage. Results & Data Vital Signs (Past 12 Hours) Vital Signs Temp Pulse Resp BP Pulse Ox O2 Del Method 04/26/23 07:10 37.2 C 99 H 20 137/94 95 Room Air 04/26/23 02:26 37.1 C 110 H 18 135/90 94 Room Air 04/25/23 21:51 37.2 C 93 H 16 128/86 96 Room Air PG Care Time/CCT Total # of Minutes Spent Total Time Spent with Patient: Total time spent is greater than 50% in coordination of care (as documented) at patient's floor/unit and/or counseling patient: Coding Level of Care Code 32310 Post Operative Follow-Up Diagnoses History of colon surgery Z98.890
[2023-04-26] MEDS: MoRPHine SULFATE 2 MG/ML CARP IV PRN ×2 (08:58→21:46)
[2023-04-26] MEDS ORDERED: CHLORASEPTIC 1.4% SOLN 180 ML BTL PO ONE (11:01)
[2023-04-26] MEDS: D5NSS + 20MEQ KCL 20 MEQ/1,000 ML BAG IV SCH ×2 (11:09→21:39)
--- NOTE | 2023-04-26 12:20 | XRay Report ---
XR abdomen 2V w PA chest HISTORY: 38 years-old Male vomiting acute nausea with vomiting COMPARISON: CT abdomen and pelvis 12/12/2022 TECHNIQUE: AP view of the chest with erect and supine views of the abdomen FINDINGS: Cardiac silhouette is enlarged. Linear bibasilar atelectasis. No pneumothorax. Distal tip of enteric tube projects over the mid stomach. Midline abdominal woody. Air-filled loops of large and small bowel with small bowel loops measuring up to 5.9 cm. Linear radiodense structure projects over the abdominal right lower quadrant may represent a surgical drain. Pelvic base and phle boliths are again noted. No definite free air or acute fracture. IMPRESSION: 1. Distended air-filled loops of large and small bowel may represent postoperative ileus versus obstr uction. Follow-up is needed. 2. Distal tip of enteric tube projects over the mid stomach. 3. Bibasilar atelectasis. ACT 112: Negative or not required by law. The above report was generated using voice recognition software. It may contain grammatical, syntax o r spelling errors. Electronically signed by: Arnoldo Jordan M.D. 04/26/2023 12:19 PM
[2023-04-26] MEDS: SODIUM CHLORIDE 0.9% 1,000 ML IV SCH ×2 (15:05→16:09)
[2023-04-27] MEDS ORDERED: SODIUM CHLORIDE 0.9% 1,000 ML IV ONE (05:18)
[2023-04-27] MEDS ORDERED: SODIUM CHLORIDE 0.9% 1,000 ML IV SCH ×2 (05:30→07:15)
[2023-04-27] MEDS: PIPERACILLIN/TAZOBACTAM 4.5 GM in DEXTROSE 5% MINI-B 100 ML IV SCH ×3 (05:33→21:45)
[2023-04-27] MEDS: D5NSS + 20MEQ KCL 20 MEQ/1,000 ML BAG IV SCH ×3 (06:27→17:21)
--- NOTE | 2023-04-27 07:02 | Surgery Progress Note ---
Date of Service April 27, 2023 Assessment & Plan (1) History of colon surgery: Plan: Clinically improving We will keep NG tube until tomorrow. Repeat KUB if improved we will pull NG tube and start clears tomorrow We will remove RONNY drain today Continue IV antibiotic and wound dressing changes Still a little on the dry side we will give additional 1000 cc bolus this morning Dr. Mcneil covering for the weekend Admission and Anticipated Discharge Date Admission Date: April 19, 2023 Subjective Patient had multiple bowel movements starting last evening. This is dramatically decrease his distention. He has no nausea. Minimal discomfort. Primary concern/complaint is NG tube discomfort. Physical Exam Physical Exam: Alert. No acute distress His incision is dramatically improved. Small amount of purulent output but the erythema is much improved. Less distention RONNY drain serous Results & Data Vital Signs (Past 12 Hours) Vital Signs Temp Pulse Resp BP Pulse Ox O2 Del Method 04/26/23 20:11 37.1 C 101 H 18 132/87 94 Room Air PG Care Time/CCT Total # of Minutes Spent Total Time Spent with Patient: Total time spent is greater than 50% in coordination of care (as documented) at patient's floor/unit and/or counseling patient: Coding Level of Care Code 06830 Post Operative Follow-Up Diagnoses History of colon surgery Z98.890
[2023-04-27] MEDS ORDERED: Nursing to Pharmacy Communication SCH (07:15)
[2023-04-27] MEDS: MoRPHine SULFATE 2 MG/ML CARP IV PRN ×2 (07:35→13:50)
[2023-04-27 13:26] LABS: Basophils # (auto) 0.04 K/uL (0.00-0.20); Basophils % (auto) 0.5 %; Eosinophils # (auto) 0.14 K/uL (0.00-0.50); Eosinophils % (auto) 1.9 %; Hematocrit (blood only) 34.6 % (42.0-52.0); Hemoglobin 11.4 g/dl (14.0-18.0); Immature Granulocytes # (auto) 0.04 K/uL (0.01-0.20); Immature Granulocytes % (auto) 0.5 %; Lymphocytes # (auto) 0.76 K/uL (1.20-3.40); Lymphocytes % (auto) 10.1 %; Mean Corpuscular Hemoglobin 30.4 pg (25.0-34.0); Mean Corpuscular Hgb Conc 32.9 g/dL (32.0-36.0); Mean Corpuscular Volume 92.3 fL (80.0-100.0); Mean Platelet Volume 10.7 fL (9.4-12.4); Monocytes # (auto) 0.71 K/uL (0.11-0.59); Monocytes % (auto) 9.4 %; Neutrophils # (auto) 5.87 K/uL (1.40-6.50); Neutrophils % (auto) 77.6 %; Platelet Count 354 K/uL (130-400); RDW Coefficient of Variation 13.7 % (11.5-14.5); RDW Standard Deviation 46.8 fL (36.4-46.3); Red Blood Count 3.75 M/uL (4.70-6.10); White Blood Count 7.56 K/ul (4.8-10.8)
[2023-04-27 13:56] LABS: Creatinine Clr Calc Pharmacy 225.2 ml/min; Est GFR (African American) 145.8 ml/min; Est GFR (Non-African American) 125.8 ml/min; Potassium 3.5 mmol/L (3.5-5.1)
[2023-04-27] MEDS ORDERED: SODIUM CHLORIDE 0.9% 750 ML IV ONE (17:17)
[2023-04-28] MEDS: D5NSS + 20MEQ KCL 20 MEQ/1,000 ML BAG IV SCH ×3 (03:10→20:46)
[2023-04-28] MEDS: MoRPHine SULFATE 2 MG/ML CARP IV PRN ×2 (03:23→13:17)
[2023-04-28] MEDS ORDERED: Nursing to Pharmacy Communication SCH (04:00)
[2023-04-28] MEDS: PIPERACILLIN/TAZOBACTAM 4.5 GM in DEXTROSE 5% MINI-B 100 ML IV SCH ×3 (05:45→23:03)
[2023-04-28 06:01] LABS: Basophils # (auto) 0.05 K/uL (0.00-0.20); Basophils % (auto) 0.7 %; Eosinophils # (auto) 0.19 K/uL (0.00-0.50); Eosinophils % (auto) 2.6 %; Hemoglobin 10.9 g/dl (14.0-18.0); Immature Granulocytes # (auto) 0.04 K/uL (0.01-0.20); Immature Granulocytes % (auto) 0.5 %; Lymphocytes # (auto) 0.89 K/uL (1.20-3.40); Lymphocytes % (auto) 12.1 %; Mean Corpuscular Hemoglobin 30.2 pg (25.0-34.0); Mean Corpuscular Hgb Conc 32.1 g/dL (32.0-36.0); Mean Corpuscular Volume 94.2 fL (80.0-100.0); Mean Platelet Volume 10.5 fL (9.4-12.4); Monocytes # (auto) 0.77 K/uL (0.11-0.59); Monocytes % (auto) 10.5 %; Neutrophils # (auto) 5.39 K/uL (1.40-6.50); Neutrophils % (auto) 73.6 %; Platelet Count 334 K/uL (130-400); RDW Coefficient of Variation 13.6 % (11.5-14.5); Red Blood Count 3.61 M/uL (4.70-6.10); White Blood Count 7.33 K/ul (4.8-10.8)
--- NOTE | 2023-04-28 06:28 | Surgery Progress Note ---
Date of Service April 28, 2023 Assessment & Plan (1) History of colon surgery: Plan: Patient is status post laparoscopic converted to open sigmoid resection on 04/19/2023 (postop day #9) Continue analgesics as needed Continue antiemetics as needed Check a.m. labs when available Maintain NG tube and n.p.o. status for the present time. KUB has been ordered for this morning which is pending. Decision about whether or not to remove NG tube will hinge on results of KUB Continue to encourage ambulation Continue antibiotics in form of Zosyn Continue intravenous fluids until oral intake can be advanced and is noted to be reliable Admission and Anticipated Discharge Date Admission Date: April 19, 2023 Supervising Physician Co-Signing Physician Notes Patient has evidence for bleeding in NGT with increased output o/n. Start Protonix IV He reports he is passing a small amount of gas and KUB appears to have improvement. Will perform a clamping trial. If patient does well, will start sips of clears today. Continue ambulating. If we are not able to progress patient today, will start parenteral nutrition tomorrow am. Subjective Patient is currently resting in bed. He notes he has not had a bowel movement overnight but notes he is reporting small amounts of flatus. He denies any fevers, shakes, or chills. He denies any nausea or vomiting. He does note abdominal pain near his surgical incisions. He is voiding without difficulty. He denies any shortness of breath. He says he has been ambulating in the hallway without difficulty. Physical Exam Gastrointestinal (Abdomen): Abdomen is soft and nondistended. Surgical incisions are intact with woody. He does have a [place] drain in the superior aspect of his midline incision. A ppropriate tenderness is noted near surgical incision. NG tube is in place And has drained approximately 700 cc over the last shift. The patient has had approximately 2700 cc recorded output on 04/27/2023. Results & Data Vital Signs (Past 12 Hours) Vital Signs Temp Pulse Resp BP Pulse Ox O2 Del Method 04/27/23 21:55 36.9 C 87 16 120/81 97 Room Air PG Care Time/CCT Total # of Minutes Spent Total Time Spent with Patient: Total time spent is greater than 50% in coordination of care (as documented) at patient's floor/unit and/or counseling patient: Coding Level of Care Code 18518 Post Operative Follow-Up Diagnoses History of colon surgery Z98.890
[2023-04-28 06:36] LABS: BUN Creatinine Ratio 6.3 (10-20); Calcium 8.2 mg/dl (8.6-10.3); Creatinine Clr Calc Pharmacy 214.5 ml/min; Est GFR (African American) 142.9 ml/min; Est GFR (Non-African American) 123.3 ml/min; Potassium 3.7 mmol/L (3.5-5.1)
--- NOTE | 2023-04-28 07:44 | XRay Report ---
KUB CLINICAL HISTORY: Ileus. FINDINGS: 2 AP, portable, supine abdominal radiographs are compared to study dated 04/26/2023 and [facility] el[facility] with abdominal CT dated 12/12/2022. Midline skin clips are observed. An enteric tube projects o melly the stomach. There is persistent gaseous distention of the small bowel and colon. Small bowel loo ps measure up to 5.4 cm. No evidence of intraperitoneal free air is seen on these supine images. Phle boliths are noted in the pelvis. The bony structures appear intact. IMPRESSION: Persistent gaseous distention of the small bowel loops and colon is most suggestive of il eus. Obstruction is considered less likely. The degree of distention appears modestly improved as com pared to 04/26/2023. Electronically signed by: Jaciel Jordan M.D. 04/28/2023 7:43 AM
[2023-04-28] MEDS: PANTOprazole 40 MG in SYRINGE 0 ML IV SCH (20:48)
[2023-04-29] MEDS: D5NSS + 20MEQ KCL 20 MEQ/1,000 ML BAG IV SCH ×2 (04:55→13:15)
--- NOTE | 2023-04-29 05:37 | Surgery Progress Note ---
Date of Service April 29, 2023 Assessment & Plan (1) History of colon surgery: Plan: Patient is status post laparoscopic converted to open sigmoid resection on 04/19/2023 (postop day #10) Continue analgesics as needed Continue antiemetics as needed Check a.m. labs when available KUB was performed on 04/28/2023 with findings suggestive of a postoperative ileus. Patient had NG tube clamped on 04/29/2023 and residuals were checked on 2 occasions with amounts of 20 and 35 cc respectively. Due to findings concerning of ileus and the bloating patient has been experiencing we will maintain NG tube. Continue to encourage ambulation Continue antibiotics in form of Zosyn We will discuss with attending physicianconsideration may be given to placing patient on TPN as it does not appear his diet will be able to be advanced. Check a.m. labs when available Admission and Anticipated Discharge Date Admission Date: April 19, 2023 Supervising Physician Co-Signing Physician Notes I have seen and examined this patient. He says he feels bloated with the NGT clamped but his abdomen is not tensely distended. He is very soft. He has no nausea and NGT outputs after 4 hour clamping checks is very low. Encourage aggressive ambulation today. Hoping today patient will begin to pass significant flatus. PPN is being started today. Continuing NPO. Subjective Patient is resting comfortably in bed. He denies any fevers, shakes, or chills. He notes he is passing a small amount of flatus and had a very small bowel movement over the past shift. He notes he is urinating without difficulty. He says he is ambulating in the hallway. The patient does note he experiences some abdominal bloating with his NG tube clamped. He did not experience any nausea or emesis. He does note some incisional surgical pain. Physical Exam Gastrointestinal (Abdomen): Abdomen is overall soft with some mild distention. Incision is intact with woody with [place] drain in the superior aspect of the midline incision. Patient has appropriate tenderness near surgical incisions which appears to be greatest in the lower aspect of the incision. Results & Data Vital Signs (Past 12 Hours) Vital Signs Temp Pulse Resp BP Pulse Ox O2 Del Method 04/28/23 20:50 Room Air 04/28/23 22:07 37.3 C 85 18 126/85 98 Room Air PG Care Time/CCT Total # of Minutes Spent Total Time Spent with Patient: Total time spent is greater than 50% in coordination of care (as documented) at patient's floor/unit and/or counseling patient: Coding Level of Care Code 39535 SUB INP/OBS CARE 08/16MIN Diagnoses History of colon surgery Z98.890
[2023-04-29] MEDS: PIPERACILLIN/TAZOBACTAM 4.5 GM in DEXTROSE 5% MINI-B 100 ML IV SCH ×3 (06:28→21:20)
[2023-04-29 07:40] LABS: Basophils # (auto) 0.05 K/uL (0.00-0.20); Basophils % (auto) 0.7 %; Eosinophils # (auto) 0.28 K/uL (0.00-0.50); Eosinophils % (auto) 3.8 %; Hematocrit (blood only) 34.2 % (42.0-52.0); Immature Granulocytes # (auto) 0.04 K/uL (0.01-0.20); Immature Granulocytes % (auto) 0.5 %; Lymphocytes # (auto) 1.01 K/uL (1.20-3.40); Lymphocytes % (auto) 13.6 %; Mean Corpuscular Hemoglobin 29.7 pg (25.0-34.0); Mean Corpuscular Hgb Conc 32.2 g/dL (32.0-36.0); Mean Corpuscular Volume 92.4 fL (80.0-100.0); Mean Platelet Volume 10.8 fL (9.4-12.4); Monocytes # (auto) 0.72 K/uL (0.11-0.59); Monocytes % (auto) 9.7 %; Neutrophils # (auto) 5.31 K/uL (1.40-6.50); Neutrophils % (auto) 71.7 %; Platelet Count 373 K/uL (130-400); RDW Coefficient of Variation 13.4 % (11.5-14.5); RDW Standard Deviation 45.4 fL (36.4-46.3); White Blood Count 7.41 K/ul (4.8-10.8)
[2023-04-29] MEDS ORDERED: TPN/PPN CONSULT PHARMACY PRN (07:40)
[2023-04-29 08:00] LABS: BUN Creatinine Ratio 4.8 (10-20); Calcium 8.4 mg/dl (8.6-10.3); Est GFR (African American) 143.8 ml/min; Est GFR (Non-African American) 124.1 ml/min; Potassium 3.5 mmol/L (3.5-5.1)
[2023-04-29 08:10] LABS: Magnesium 1.8 mg/dl (1.7-2.4); Phosphorus 3.2 mg/dl (2.5-4.9)
[2023-04-29] MEDS: PANTOprazole 40 MG in SYRINGE 0 ML IV SCH ×2 (08:51→19:59)
[2023-04-29] MEDS ORDERED: DEXTROSE 10% 1,000 ML IV PRN (10:38)
[2023-04-29] MEDS ORDERED: Nursing to Pharmacy Communication SCH (11:30)
--- NOTE | 2023-04-29 13:59 | Pharmacy Report ---
Pharmacy PN Initial Consult - Date of Service April 29, 2023 - Scope Pharmacy has been consulted to manage parenteral nutrition orders and order appropriate labs. As part of the Nutrition Support Team guidelines, pharmacy will work in conjunction with dietary when determining the patients caloric needs. - Subjective The patient is a 38 year old M admitted on 04/19/23 15:32 for POST OPERATIVE SIGMOIDECTOMY. Patient is to receive parenteral nutrition for presumed po stoperative ileus and inability to advance diet. Pertinent PMH: s/p laparoscopic -> open left colon/sigmoid colectomy (04/19/23) Colitis/diverticulitis - Objective Height: 6 ft 1 in Weight: 123.4 kg Intake & Output (Last 24Hrs): Intake & Output 04/27/23 04/28/23 04/29/23 04/30/23 06:59 06:59 06:59 06:59 Intake Total 5070.833 / 5070.833 5350.000 / 5350.000 3300 / 3300 1100 / 1100 Output Total 205 / 2050 2150 / 2150 1 / Balance 3020.833 / 3020.833 3200.000 / 3200.000 3300 / 3300 1099 / 1099 Weight 123.4 kg 123.4 kg Laboratory Data (Last 24 Hrs):: 04/29/23 06:30 Sodium 137 Potassium 3.5 Chloride 105 Carbon Dioxide 25 BUN 3 L Creatinine 0.62 Glucose 99 Calcium 8.4 L Phosphorus 3.2 Magnesium 1.8 Nutrition Assessment:: Please refer to the Notes section of the EMR for the most recent check clerk note. - Assessment * MB is a 38 year old male ordered PPN today due to inability to advance diet in patient w/ recent GI surgery and possible ileus * POD #10 s/p sigmoid colon resection * Ultrasound guided peripheral line placed - okay for PPN today * Macronutrient recs provided by dietary, appreciated * Electrolytes WNL * Will order triglycerides for tomorrow * Discussed total volume with ordering provider. Will infuse NSS @30 mL/hr in addition to PN and lipids to provide ~3000 mL/day. - Plan For day 1 of PN administration, the following will be ordered: Macronutrients Amino acids 85 grams/day Dextrose 100 grams/day Lipids 50 grams/day Micronutrients Combined electrolytes 40 mL - contains 35 mEq Na, 20 meq K, 4.5 mEq Ca, 5 mEq Mg, 35 mEq Cl, 29.5 mEq acetate per 20 mL Sodium phosphate 21 MMol Sodium chloride 50 mEq Potassium chloride 60 mEq Multivitamins 10 mL Trace Elements 10 mL Total volume 2108 mL to be infused over 24 hrs will provide 1180 kcal/day Final osmolarity 885 mOsm/L (maximum for PPN is 900 mOsm/L) Labs to be ordered per PN order protocol Pharmacy will follow and adjust parenteral nutrition orders on a daily basis. Thank you.
[2023-04-29] MEDS ORDERED: CLINOLIPID 20% IV FAT EMULSION 250 ML IV SCH (16:00)
[2023-04-29] MEDS ORDERED: [UNRECOGNIZED DRUG - OTHER] IV SCH (16:00)
[2023-04-29] MEDS ORDERED: PERIPHERAL TPN IV SCH (16:00)
[2023-04-29] MEDS: SODIUM CHLORIDE 0.9% 1,000 ML IV SCH (16:22)
[2023-04-29] MEDS: AA 4.25%/D5W 2L 2,108 ML in Peripheral TPN bag 0 ML IV SCH (16:22)
[2023-04-29] MEDS ORDERED: STOP CLINOLIPID ONE (21:59)
[2023-04-30] MEDS: PIPERACILLIN/TAZOBACTAM 4.5 GM in DEXTROSE 5% MINI-B 100 ML IV SCH ×3 (05:49→21:15)
[2023-04-30 08:28] LABS: Basophils # (auto) 0.04 K/uL (0.00-0.20); Basophils % (auto) 0.6 %; Eosinophils # (auto) 0.21 K/uL (0.00-0.50); Hematocrit (blood only) 36.4 % (42.0-52.0); Immature Granulocytes # (auto) 0.04 K/uL (0.01-0.20); Immature Granulocytes % (auto) 0.6 %; Lymphocytes # (auto) 0.92 K/uL (1.20-3.40); Lymphocytes % (auto) 13.1 %; Mean Platelet Volume 10.1 fL (9.4-12.4); Monocytes # (auto) 0.63 K/uL (0.11-0.59); Neutrophils # (auto) 5.19 K/uL (1.40-6.50); Neutrophils % (auto) 73.7 %; Platelet Count 366 K/uL (130-400); RDW Coefficient of Variation 13.3 % (11.5-14.5); RDW Standard Deviation 44.5 fL (36.4-46.3); White Blood Count 7.03 K/ul (4.8-10.8)
--- NOTE | 2023-04-30 08:49 | Surgery Progress Note ---
Date of Service April 30, 2023 Assessment & Plan (1) History of colon surgery: Plan: clinically improving. Should be able to get NGT out today and start clears. will check KUB first continue peripheral nutrition until diet tolerated. Admission and Anticipated Discharge Date Admission Date: April 19, 2023 Subjective pt seen. feeling ok. NGT has been clamped since sunday. no n/v. +small bm yesterday. +flatus. Physical Exam Physical Exam: alert. nad. abd: soft. less distended. Lower pole of incision still draining. erythema much improved. Results & Data Vital Signs (Past 12 Hours) Vital Signs Temp Pulse Resp BP BP Pulse Ox O2 Del Method 04/30/23 07:01 37 C 84 16 123/79 96 Room Air 04/29/23 21:15 37.1 C 82 18 132/87 99 Room Air PG Care Time/CCT Total # of Minutes Spent Total Time Spent with Patient: Total time spent is greater than 50% in coordination of care (as documented) at patient's floor/unit and/or counseling patient: Coding Level of Care Code 22991 Post Operative Follow-Up Diagnoses History of colon surgery Z98.890
[2023-04-30 08:50] LABS: BUN Creatinine Ratio 9.2 (10-20); Calcium 8.7 mg/dl (8.6-10.3); Creatinine Clr Calc Pharmacy 203.1 ml/min; Est GFR (Non-African American) 121.7 ml/min; Magnesium 1.9 mg/dl (1.7-2.4); Phosphorus 3.6 mg/dl (2.5-4.9); Potassium 3.9 mmol/L (3.5-5.1)
--- NOTE | 2023-04-30 09:49 | XRay Report ---
KUB HISTORY: Acute and has abdominal pain ileus COMPARISON: KUB 04/28/2023 FINDINGS: Midline abdominal woody. Unchanged pelvic basin calcifications. Distal tip of enteric tub e projects over the stomach. There is persistent gaseous distention of the large and small bowel with small bowel loops measuring up to approximately 5.8 cm, previously 5.5 cm. No renal calculi. No ure teral calculi. No pneumoperitoneum or pneumatosis. No fracture. IMPRESSION: Persistent large and small bowel gaseous distention which is similar in appearance to the study from 04/28/2023. Findings favor postoperative ileus with distal obstruction considered less likely. Continu ed follow-up recommended. ACT 112: Negative or not required by law. The above report was generated using voice recognition software. It may contain grammatical, syntax o r spelling errors. Electronically signed by: Arnoldo Jordan M.D. 04/30/2023 9:47 AM
[2023-04-30] MEDS: PANTOprazole 40 MG in SYRINGE 0 ML IV SCH ×2 (09:50→21:15)
[2023-04-30] MEDS ORDERED: [UNRECOGNIZED DRUG - OTHER] IV SCH (16:00)
[2023-04-30] MEDS ORDERED: PERIPHERAL TPN IV SCH (16:00)
[2023-04-30] MEDS ORDERED: CLINOLIPID 20% IV FAT EMULSION 250 ML IV SCH (16:00)
[2023-04-30] MEDS: AA 4.25%/D5W 2L 2,108 ML in Peripheral TPN bag 0 ML IV SCH (16:49)
[2023-04-30] MEDS: SODIUM CHLORIDE 0.9% 1,000 ML IV SCH (17:49)
[2023-04-30] MEDS: STOP CLINOLIPID SCH (21:58)
[2023-05-01] MEDS: PIPERACILLIN/TAZOBACTAM 4.5 GM in DEXTROSE 5% MINI-B 100 ML IV SCH ×3 (05:29→21:20)
--- NOTE | 2023-05-01 07:04 | Surgery Progress Note ---
Date of Service May 01, 2023 Assessment & Plan (1) History of colon surgery: Plan: Continue to deal with poor bowel function. We will clamp NG tube for 5 hours today and check residuals. If 100 cc or less we will leave the NG tube in place but let him initiate clear liquids. If no clinical improvement in the next 24 hours we will obtain small bowel follow-through versus CT scan tomorrow. Continue IV nutrition Admission and Anticipated Discharge Date Admission Date: April 19, 2023 Subjective Patient seen. Feeling okay. He continues to ambulate and pass gas. No more bowel movement. He is admittedly becoming frustrated which is understandable. He has not been needing pain medicine. Physical Exam Physical Exam: Alert no acute distress Incision still is draining some purulent fluid from the inferior pole however there is no warmth or erythema. The incision remains intact NG tube with approximately 1 L out since yesterday of bilious fluid Results & Data Vital Signs (Past 12 Hours) Vital Signs Temp Pulse Resp BP Pulse Ox O2 Del Method 04/30/23 21:30 Room Air 04/30/23 20:03 36.7 C 86 18 122/85 98 Room Air PG Care Time/CCT Total # of Minutes Spent Total Time Spent with Patient: Total time spent is greater than 50% in coordination of care (as documented) at patient's floor/unit and/or counseling patient: Coding Level of Care Code 93069 Post Operative Follow-Up Diagnoses History of colon surgery Z98.890
[2023-05-01] MEDS: PANTOprazole 40 MG in SYRINGE 0 ML IV SCH ×2 (09:28→20:06)
[2023-05-01 10:03] LABS: Albumin Level 3.7 gm/dl (3.4-5.0); BUN Creatinine Ratio 14.1 (10-20); Bilirubin,Total 0.6 mg/dl (0.2-1.0); Calcium 9.1 mg/dl (8.6-10.3); Creatinine Clr Calc Pharmacy 204.9 ml/min; Est GFR (African American) 141.9 ml/min; Est GFR (Non-African American) 122.5 ml/min; Phosphorus 3.4 mg/dl (2.5-4.9); Potassium 4.1 mmol/L (3.5-5.1)
[2023-05-01] MEDS ORDERED: [UNRECOGNIZED DRUG - OTHER] IV SCH (16:00)
[2023-05-01] MEDS ORDERED: CLINOLIPID 20% IV FAT EMULSION 250 ML IV SCH (16:00)
[2023-05-01] MEDS ORDERED: PERIPHERAL TPN IV SCH (16:00)
[2023-05-01] MEDS: SODIUM CHLORIDE 0.9% 1,000 ML IV SCH (16:27)
[2023-05-01] MEDS: IBUPROFEN 200 MG TAB PO PRN (20:05)
[2023-05-01] MEDS: STOP CLINOLIPID SCH (22:27)
[2023-05-02] MEDS: PIPERACILLIN/TAZOBACTAM 4.5 GM in DEXTROSE 5% MINI-B 100 ML IV SCH (05:30)
[2023-05-02 09:05] LABS: BUN Creatinine Ratio 15.5 (10-20); Calcium 9.4 mg/dl (8.6-10.3); Creatinine Clr Calc Pharmacy 184.5 ml/min; Est GFR (Non-African American) 117.4 ml/min; Phosphorus 3.3 mg/dl (2.5-4.9); Potassium 4.4 mmol/L (3.5-5.1)
[2023-05-02] MEDS: PANTOprazole 40 MG in SYRINGE 0 ML IV SCH ×2 (09:19→20:40)
--- NOTE | 2023-05-02 09:37 | Surgery Progress Note ---
Date of Service May 02, 2023 Assessment & Plan (1) History of colon surgery: Plan: continue Iv nutrition will obtain SBFT today to eval....if contrast reaches colon, will pull NGT and try full liquids..... Admission and Anticipated Discharge Date Admission Date: April 19, 2023 Subjective pt seen. not much change. did tolerate clears yesterday but felt "bloated" after. no bm. +flatus. no nausea. Physical Exam Physical Exam: abd: soft. nt. incision still with lower pole drainage. no erythema. Results & Data Vital Signs (Past 12 Hours) Vital Signs Temp Pulse Resp BP Pulse Ox O2 Del Method 05/02/23 07:12 36.8 C 80 18 116/68 96 Room Air PG Care Time/CCT Total # of Minutes Spent Total Time Spent with Patient: Total time spent is greater than 50% in coordination of care (as documented) at patient's floor/unit and/or counseling patient: Coding Level of Care Code 90653 Post Operative Follow-Up Diagnoses History of colon surgery Z98.890
[2023-05-02] MEDS: ONDANSETRON INJ 2 MG/ML 2 ML VIAL IV PRN (11:15)
--- NOTE | 2023-05-02 12:40 | Fluoroscopy Report ---
FL small bowel follow through CLINICAL HISTORY: s/p sigmoid, concern for ileus vs sbo. COMPARISON STUDY: CT of the abdomen and pelvis December 12, 2022. KUB April 30, 2023. PROCEDURE: Initially, a medical office asst KUB was obtained. A small bowel follow-through was then performed follo wing administration of 300 cc of dilute Optiray via the nasogastric tube. Overhead radiographs were t hen obtained. FINDINGS: Project [employer] KUB demonstrates tip of nasogastric tube within the body of the stomach. There are sk in woody from laparotomy. Multiple loops of moderately dilated small bowel are similar to prior KUB . Contrast reached the colon at 2 hours. A well-defined transition point was not identified. Caliber of the proximal to mid small bowel was normal. Multiple moderately dilated loops of distal small alexia l were noted. IMPRESSION: No significant change in moderate dilatation of multiple distal small bowel loops. Contrast reached t he colon at 2 hours. Therefore, the findings favor a postoperative ileus. However, a partial small lalitha wel obstruction could appear similar. No evidence for a high-grade small bowel obstruction. ACT 112: Negative or not required by law. Electronically signed by: Bandar Myles M.D. 05/02/2023 12:38 PM
[2023-05-02] MEDS ORDERED: PERIPHERAL TPN IV SCH (16:00)
[2023-05-02] MEDS ORDERED: CLINOLIPID 20% IV FAT EMULSION 250 ML IV SCH (16:00)
[2023-05-02] MEDS ORDERED: [UNRECOGNIZED DRUG - OTHER] IV SCH (16:00)
[2023-05-02] MEDS: STOP CLINOLIPID SCH (21:40)
[2023-05-02] MEDS: SODIUM CHLORIDE 0.9% 1,000 ML IV SCH (21:41)
[2023-05-03 08:20] LABS: Basophils # (auto) 0.04 K/uL (0.00-0.20); Basophils % (auto) 0.7 %; Eosinophils # (auto) 0.23 K/uL (0.00-0.50); Eosinophils % (auto) 3.8 %; Hematocrit (blood only) 39.8 % (42.0-52.0); Hemoglobin 12.8 g/dl (14.0-18.0); Immature Granulocytes % (auto) 1.6 %; Lymphocytes # (auto) 0.99 K/uL (1.20-3.40); Lymphocytes % (auto) 16.3 %; Mean Corpuscular Hemoglobin 29.8 pg (25.0-34.0); Mean Corpuscular Hgb Conc 32.2 g/dL (32.0-36.0); Mean Corpuscular Volume 92.6 fL (80.0-100.0); Mean Platelet Volume 11.1 fL (9.4-12.4); Monocytes # (auto) 0.64 K/uL (0.11-0.59); Monocytes % (auto) 10.5 %; Neutrophils # (auto) 4.08 K/uL (1.40-6.50); Neutrophils % (auto) 67.1 %; Platelet Count 324 K/uL (130-400); RDW Coefficient of Variation 13.4 % (11.5-14.5); RDW Standard Deviation 46.1 fL (36.4-46.3); White Blood Count 6.08 K/ul (4.8-10.8)
[2023-05-03] MEDS: PANTOprazole 40 MG in SYRINGE 0 ML IV SCH ×2 (08:35→20:03)
[2023-05-03 08:43] LABS: BUN Creatinine Ratio 14.9 (10-20); Calcium 9.4 mg/dl (8.6-10.3); Creatinine Clr Calc Pharmacy 177.8 ml/min; Est GFR (African American) 133.7 ml/min; Est GFR (Non-African American) 115.4 ml/min; Magnesium 1.8 mg/dl (1.7-2.4); Phosphorus 3.6 mg/dl (2.5-4.9); Potassium 4.1 mmol/L (3.5-5.1)
--- NOTE | 2023-05-03 08:54 | Surgery Progress Note ---
Date of Service May 03, 2023 Assessment & Plan (1) History of colon surgery: Plan: Doing much better. Will advance to low residue diet. If he does well with this we will anticipate discharge tomorrow Admission and Anticipated Discharge Date Admission Date: April 19, 2023 Subjective Patient seen. He had multiple large bowel movements yesterday and through the night. He is feeling much better. Tolerated full liquid diet Physical Exam Physical Exam: Alert. No acute distress Incision looks good. There is still some small amount of purulent drainage from the inferior pole Results & Data Vital Signs (Past 12 Hours) Vital Signs Temp Pulse Resp BP Pulse Ox O2 Del Method 05/03/23 07:35 36.8 C 83 14 118/78 96 Room Air 05/02/23 21:48 37.1 C 90 18 114/77 97 Room Air PG Care Time/CCT Total # of Minutes Spent Total Time Spent with Patient: Total time spent is greater than 50% in coordination of care (as documented) at patient's floor/unit and/or counseling patient: Coding Level of Care Code 49627 Post Operative Follow-Up Diagnoses History of colon surgery Z98.890
[2023-05-03] MEDS ORDERED: ACETAMINOPHEN 325 MG TAB PO PRN (09:14)
[2023-05-04] MEDS: PANTOprazole 40 MG in SYRINGE 0 ML IV SCH (08:32)
[2023-05-04 09:05] LABS: Basophils # (auto) 0.06 K/uL (0.00-0.20); Basophils % (auto) 0.9 %; Eosinophils # (auto) 0.18 K/uL (0.00-0.50); Eosinophils % (auto) 2.8 %; Hematocrit (blood only) 40.1 % (42.0-52.0); Hemoglobin 13.1 g/dl (14.0-18.0); Immature Granulocytes # (auto) 0.08 K/uL (0.01-0.20); Immature Granulocytes % (auto) 1.2 %; Lymphocytes # (auto) 1.06 K/uL (1.20-3.40); Lymphocytes % (auto) 16.3 %; Mean Corpuscular Hemoglobin 29.9 pg (25.0-34.0); Mean Corpuscular Hgb Conc 32.7 g/dL (32.0-36.0); Mean Corpuscular Volume 91.6 fL (80.0-100.0); Mean Platelet Volume 11.4 fL (9.4-12.4); Monocytes # (auto) 0.61 K/uL (0.11-0.59); Monocytes % (auto) 9.4 %; Neutrophils # (auto) 4.52 K/uL (1.40-6.50); Neutrophils % (auto) 69.4 %; Platelet Count 340 K/uL (130-400); RDW Coefficient of Variation 13.3 % (11.5-14.5); RDW Standard Deviation 45.6 fL (36.4-46.3); Red Blood Count 4.38 M/uL (4.70-6.10); White Blood Count 6.51 K/ul (4.8-10.8)
[2023-05-04 09:28] LABS: BUN Creatinine Ratio 15.2 (10-20); Calcium 9.8 mg/dl (8.6-10.3); Creatinine Clr Calc Pharmacy 165.9 ml/min; Est GFR (African American) 130.2 ml/min; Est GFR (Non-African American) 112.3 ml/min; Magnesium 1.8 mg/dl (1.7-2.4)
--- NOTE | 2023-05-04 10:08 | Surgery Progress Note ---
Date of Service May 04, 2023 Assessment & Plan (1) History of colon surgery: Plan: Doing well. Okay for discharge. Instructions given. Admission and Anticipated Discharge Date Admission Date: April 19, 2023 Subjective Patient seen. He is feeling well. He is tolerating regular diet. He has no pain or nausea. Physical Exam Physical Exam: alert. nad. wound looks good with small amount of drainage at inferior pole Results & Data Vital Signs (Past 12 Hours) Vital Signs Temp Pulse Resp BP Pulse Ox O2 Del Method 05/04/23 07:51 36.8 C 76 14 134/84 99 Room Air PG Care Time/CCT Total # of Minutes Spent Total Time Spent with Patient: Total time spent is greater than 50% in coordination of care (as documented) at patient's floor/unit and/or counseling patient: Coding Level of Care Code 78605 Post Operative Follow-Up Diagnoses History of colon surgery Z98.890
== END 2023-05-04 12:58 | disposition home or self-care (01) | DRG 330 ==
LOC: ASU 09:47 → 3W 15:32

== ENCOUNTER 2023-09-06 06:44 | Observation (INO) ==
--- NOTE | 2023-08-31 15:10 | Anesthesiology Consultation ---
Date of Service August 31, 2023 Assessment & Plan (1) Encounter for pre-operative examination: Chart Review Chart Review: Acceptable Risk for Surgery and Patient NOT seen in Pre Admission Testing -Infectious Disease screening: Per PAT nursing assessment on 08/31/23. No known infectious disease contacts in past 10 days or current infectious disease symptoms. No recent travel outside the country. Open sigmoid colectomy 04/19/23= Done under [facility] with Grade 1 view with MAC #4. ETT #7.0. Atraumatic, lips and teet has preop. History Surgery Operation Date: 09/06/23 09:35 Proposed Procedures p Open Incisional Hernia Repair with Mesh - Erasto Vazquez, DO Height/Weight Height: 6 ft 1 in Weight: 127.006 kg Allergies Allergy/AdvReac Type Severity Reaction Status Date / Time shellfish derived Allergy Unknown Migraine Verified 08/31/23 14:39 Sulfa (Sulfonamide Allergy Unknown Redness of Verified 08/31/23 14:39 Antibiotics) Skin lisinopril AdvReac Unknown Cough Verified 08/31/23 14:39 Medications Home Medications Medication Instructions Recorded Confirmed Last Taken fexofenadine 180 mg tablet 180 mg PO QAM 12/12/22 08/31/23 04/12/23 glucosamine 375 [id number] 1 tab PO QAM 12/12/22 08/31/23 04/12/23 no1 500 mg-C 15 mg-los 0.5 mg tablet (Eamoisudbxx-Gshoyvlevzd-IHW Complex) hydrochlorothiazide 12.5 mg capsule 12.5 mg PO QAM 12/12/22 08/31/23 04/17/23 22:00 losartan 100 mg tablet 100 mg PO QAM 12/12/22 08/31/23 04/17/23 22:00 montelukast 10 mg tablet 10 mg PO QAM 12/12/22 08/31/23 04/19/23 08:00 multivitamin 1 tab PO QAM 12/12/22 08/31/23 04/12/23 acetaminophen 325 mg tablet 650 mg (2 x 325 mg) PO Q4H PRN 12/15/22 08/31/23 01/31/23 fever or pain #30 tabs docusate sodium 100 mg capsule 100 mg PO UD PRN Constipation 01/10/23 08/31/23 04/17/23 19:00 (Colace) albuterol sulfate 90 mcg/actuation 2 puff inhalation Q6H PRN 04/12/23 08/31/23 01/31/23 aerosol inhaler allergies/asthma magnesium 500 mg tablet 500 mg PO QAM 04/12/23 08/31/23 04/12/23 Past Medical History Medical History Asthma inhaler prn--per pt is well controlled - last use inhaler 1 yr ago with an illness. Depression controlled without medication. Diverticular disease History of anesthesia reaction woke up grumpy with wisdom teeth. No hx violence. Hypertension Snores Past Family History Family History Mother Breast cancer Other No family history of adverse response to anesthesia Past Surgical History Surgical History (Updated 08/31/23 @ 15:10 by Iraida Preciado PA-C) History of colon surgery (04/19/23) Laparoscopic converted to open Left colon and Sigmoid Colectomy(Not Applicable) ; mobilization of splenic flexure- Erasto Vazquez DO (due to diverticulitis) History of colonoscopy [place] teeth extracted Social History Smoking Status: Former smoker Smoking End Date: > 10 yr ago. Hx Alcohol Use: Yes Alcohol type: beer alcohol intake frequency: a few times a week Hx Substance Use: No substance use type: does not use Lab Results Anesthesia Preop Results Results Anesthesia Widget: WBC 6.62 K/ul (4.8-10.8) 07/25/23 Hgb 15.0 g/dl (14.0-18.0) 07/25/23 Hct 47.4 % (42.0-52.0) 07/25/23 Plt 246 K/uL (130-400) 07/25/23 Na 136 mmol/L (136-145) 07/25/23 K 3.6 mmol/L (3.5-5.1) 07/25/23 Cl 100 mmol/L (98-107) 07/25/23 CO2 28 mmol/L (21-32) 07/25/23 BUN 11 mg/dl (6-23) 07/25/23 Creat 0.90 mg/dl (0.6-1.4) 07/25/23 Glucose Level 104 mg/dl (70-99(Fasting)) H 07/25/23
--- NOTE | 2023-09-06 06:44 | History & Physical Report ---
Date of Service September 06, 2023 Assessment & Plan (1) Incisional hernia: Plan: We had discussed his options as well as associated risks. I have answered all of his questions. We will proceed today with open incisional hernia repair with mesh History of Present Illness Primary Care Provider: Arthur Farris MD [place] is here for repair of an incisional hernia. There is been no major changes to his health history since I had seen him last in the office. Allergies Allergy/AdvReac Type Severity Reaction Status Date / Time shellfish derived Allergy Unknown Migraine Verified 08/31/23 14:39 Sulfa (Sulfonamide Allergy Unknown Redness of Verified 08/31/23 14:39 Antibiotics) Skin lisinopril AdvReac Unknown Cough Verified 08/31/23 14:39 Home Medications Medication Instructions Recorded Confirmed Type fexofenadine 180 mg tablet 180 mg PO QAM 12/12/22 08/31/23 History glucosamine 375 lu-alncitkai-hfd 1 tab PO QAM 12/12/22 08/31/23 History no1 500 mg-C 15 mg-los 0.5 mg tablet (Wsgimswtkce-Ghwkbgibzpc-JGE Complex) hydrochlorothiazide 12.5 mg capsule 12.5 mg PO QAM 12/12/22 08/31/23 History losartan 100 mg tablet 100 mg PO QAM 12/12/22 08/31/23 History montelukast 10 mg tablet 10 mg PO QAM 12/12/22 08/31/23 History multivitamin 1 tab PO QAM 12/12/22 08/31/23 History acetaminophen 325 mg tablet 650 mg (2 x 325 mg) PO Q4H PRN 12/15/22 08/31/23 Rx fever or pain #30 tabs docusate sodium 100 mg capsule 100 mg PO UD PRN Constipation 01/10/23 08/31/23 History (Colace) albuterol sulfate 90 mcg/actuation 2 puff inhalation Q6H PRN 04/12/23 08/31/23 History aerosol inhaler allergies/asthma magnesium 500 mg tablet 500 mg PO QAM 04/12/23 08/31/23 History Past Med/Surg History Medical History Snores History of anesthesia reaction woke up grumpy with wisdom teeth. No hx violence. Diverticular disease Asthma inhaler prn--per pt is well controlled - last use inhaler 1 yr ago with an illness. Depression controlled without medication. Hypertension Surgical History (Updated 08/31/23 @ 15:10 by Iraida Preciado PA-C) History of colon surgery (04/19/23) Laparoscopic converted to open Left colon and Sigmoid Colectomy(Not Applicable) ; mobilization of splenic flexure- Erasto Vazquez DO (due to diverticulitis) History of colonoscopy [place] teeth extracted Family History Mother Breast cancer Other No family history of adverse response to anesthesia Social History (Updated 01/10/23 @ 09:37 by Mary Mcclure RN) Smoking Status: Former smoker Tobacco Type: Cigars and Smokeless Tobacco (Dip or Chew) Smoking End Date: > 10 yr ago.; Second Hand Exposure: No; Hx Alcohol Use: Yes Alcohol type: beer Alcohol Intake Frequency: 2-3 x/Week Hx Substance Use: No Preferred Language: Setswana Communication Ability: Effective Manager Billing Required: No Beliefs That Will Affect Care: None marital status: Current Living Situation: Spouse current occupational status: employed 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 How many Children do You have: 0 Feels Safe at Home: Yes during the past year weight has: remained stable Assistive Devices: None Review of Systems All systems reviewed & are unremarkable except as noted in HPI & below Physical Exam Constitutional: WD/WN, vitals as above no acute distress and not ill appearing Eyes: PERRL, conjunctivae normal, anicteric sclerae EOM intact bilaterally ENMT: external ear and nose normal, oropharynx normal Ears: no hearing impairment Neck: trachea midline, no thyromegaly Respiratory: normal respiratory effort; no respiratory distress and does not use accessory muscles Cardiovascular: Rate/Rhythm: regular rate and regular rhythm Gastrointestinal (Abdomen): Soft. Positive incisional hernia at the superior pole. This is unchanged from his prior exam. Skin: no rashes, warm and dry Psychiatric: Orientation: alert, oriented x 3 and cooperative
[2023-09-06] MEDS ORDERED: ONDANSETRON INJ 2 MG/ML 2 ML VIAL ONE (07:27)
[2023-09-06] MEDS ORDERED: MIDAZOLAM HCL 1 MG/ML 2ML VIAL ONE (07:27)
[2023-09-06] MEDS ORDERED: fentaNYL citrate PF 100 MCG/2 ML VIAL ONE ×2 (07:27→08:48)
[2023-09-06] MEDS ORDERED: PROPOFOL IV EMULSION 10 MG/ML 20 ML VIAL IV ONE ×2 (07:27→08:28)
[2023-09-06] MEDS ORDERED: LIDOCAINE 2% 2 ML VIAL/AMP(20MG/ML) INFIL ONE (07:27)
[2023-09-06] MEDS ORDERED: DEXAMETHASONE SOD INJ 4 MG/ML VIAL ONE (07:27)
[2023-09-06] MEDS ORDERED: ROCURONIUM BROMIDE 10 MG/ML 5 ML VIAL IV ONE ×11 (07:31→09:16)
[2023-09-06] MEDS: LACTATED RINGER'S 1,000 ML IV SCH ×2 (07:45→12:28)
[2023-09-06] MEDS ORDERED: ePHEDrine sulfate 50 MG/ML AMP IV PRN (07:46)
[2023-09-06] MEDS ORDERED: HYDROmorphone INJ 2 MG/ML SYR/VIAL IV PRN (07:46)
[2023-09-06] MEDS ORDERED: ATROPINE SULFATE 0.1 MG/ML 10ML SYR IV PRN (07:46)
[2023-09-06] MEDS ORDERED: SUGAMMADEX SODIUM 200 MG/2 ML VIAL IV ONE (08:45)
[2023-09-06] MEDS: BUPIVACAINE/EPINEPHRINE 0.5% MPF 1:200,000 30 ML VIAL ONE (08:52)
[2023-09-06] MEDS ORDERED: HYDROmorphone INJ 2 MG/ML SYR/VIAL ONE (09:36)
[2023-09-06] MEDS: TISSEEL FIBRIN SEALANT 10ML TOP ONE (10:22)
[2023-09-06] MEDS: ONDANSETRON INJ 2 MG/ML 2 ML VIAL IV PRN (10:41)
[2023-09-06] MEDS: fentaNYL citrate PF 100 MCG/2 ML VIAL IV PRN (10:42)
--- NOTE | 2023-09-06 11:07 | Operative Report ---
PG Post Operative Report Pre & Post Diagnosis Operation Date: 09/06/23 08:35 Pre-Op Diagnosis: Incisional Hernia Post-Op Diagnosis: Incisional Hernia ;adhesions I identified the patient and participated in the time-out.: Yes Procedure Operation Date: 09/06/23 08:35 Actual Procedures p Open Incisional Hernia Repair with Mesh(Not Applicable) ; enterolysis- Erasto Vazquez DO Surgeon Erasto Vazquez DO Back Shoe Operator connie hoover Estimated Blood Loss 25 Findings Consistent with Post-Op Diagnosis Specimens none Description of Procedure After informed consent was obtained the patient was taken to the room and placed in supine position. After successful intubation the abdomen was shaved and sterilely prepped and draped in usual fashion. I opened the top half of his prior midline incision with a 15 blade scalpel. Cautery was used to carry this down through the soft tissue. I readily encountered the hernia sac which I opened. This exposed a large probably 10 to 12 cm hernia defect. There were adhesions to the undersurface of the fascia which included bowel as well as omentum. I began by using blunt finger fractionation as well as sharp scissor lysis and small amounts of cautery to take down these adhesions. Once I had the fascia completely exposed I then primarily closed the defect using #1 Ethibond in simple interrupted fashion. Once I had the fascia completely closed I then used cautery with traction/ countertraction to skeletonize the fascia for several centimeters in all directions. Next I used a 15 cm x 10 cm piece of ProGrip mesh. I placed that as an onlay and secured to the underlying fascia using #1 Ethibond as well. It laid nice and flat and tension-free and overlapped the hernia in all directions for several centimeters. I then thoroughly irrigated the wound. There was adequate hemostasis. I placed Tisseel sealant on all raw surfaces to help prevent seroma /hematoma formation. I also covered all the raw surfaces with Frank powder. Once the glue had dried I placed a 16 Lithuanian round drain into the cavity and brought out through a separate stab incision and secured it to the skin using 2-0 nylon. Wound was then closed in multiple layers using 0 Vicryl for deep layers 2-0 Vicryl for mid layers and skin woody over a lesley drain for the skin. Silver dressing was applied as well as gauze, tape and an abdominal binder. The patient was awakened, extubated and transferred to recovery in stable condition. My nurse practitioner was present for the entire procedure assisting with exposure, mesh placement, wound closure and dressing placement. I attest to the content of the Intraoperative Record and any orders documented therein. Any exceptions are noted below.
[2023-09-06] MEDS: PROMETHAZINE HCL 6.25 MG in SODIUM CHLORIDE 0.9% 50 ML IV STA (11:11)
--- NOTE | 2023-09-06 11:42 | Anesthesiology Progress Note ---
Date of Service September 06, 2023 Anesthesia Post Procedure Vital Signs Vital Signs: Temp Pulse Pulse Resp BP Pulse Ox O2 Del Method 09/06/23 11:00 99 H 22 126/90 99 Oxymask 09/06/23 10:50 97 H 19 124/86 97 Oxymask 09/06/23 10:40 103 H 19 148/93 H 100 Oxymask 09/06/23 10:34 36.5 C 108 H 20 137/85 100 Oxymask 09/06/23 07:12 37.1 C 95 H 20 144/96 H 99 Room Air O2 Flow Rate 09/06/23 11:00 5 09/06/23 10:50 5 09/06/23 10:40 5 09/06/23 10:34 5 09/06/23 07:12 Transfer of Care Handoff Completed per policy Notes Mental Status: alert / awake / arousable and participated in evaluation Patient Amnestic to Procedure: Yes Nausea / Vomiting: adequately controlled Pain: adequately controlled Airway Patency, RR, SpO2: stable & adequate BP & HR: stable & adequate Hydration State: stable & adequate Anesthetic Complications: no major complications apparent and Pt Satisfied with anesthetic care
[2023-09-06] MEDS ORDERED: ALBUTEROL HFA 8 GM INHALER INH PRN (11:45)
[2023-09-06] MEDS ORDERED: oxyCODONE HCL IR 5 MG TAB (IMMEDIATE RELEASE) PO PRN (11:45)
[2023-09-06] MEDS ORDERED: MoRPHine SULFATE 2 MG/ML CARP IV PRN (11:45)
[2023-09-06] MEDS: PROMETHAZINE HCL INJ 25 MG/ML 1 ML VIAL ONE (11:51)
[2023-09-06] MEDS: oxyCODONE HCL IR 5 MG TAB (IMMEDIATE RELEASE) PO PRN (12:08)
[2023-09-06] MEDS: MoRPHine SULFATE 4 MG/ML 1 ML CARP\\VIAL IV PRN (13:43)
[2023-09-06] MEDS: ACETAMINOPHEN 325 MG TAB PO PRN (15:02)
[2023-09-06] MEDS: LORazepam 1 MG in SYRINGE 0.5 ML IV STA (15:15)
[2023-09-07] MEDS: LORazepam 1 MG in SYRINGE 0.5 ML IV PRN (02:16)
[2023-09-07] MEDS: ONDANSETRON INJ 2 MG/ML 2 ML VIAL IV PRN (02:21)
[2023-09-07] MEDS: MONTELUKAST SODIUM 10 MG TABLET PO SCH (07:45)
[2023-09-07] MEDS: hydroCHLOROthiazide 25 MG TAB PO SCH (07:45)
[2023-09-07] MEDS: LOSARTAN POTASSIUM 50 MG TAB PO SCH (07:45)
[2023-09-07] MEDS: FEXOFENADINE HCL 180 MG TAB PO SCH (07:45)
--- NOTE | 2023-09-07 08:03 | Surgery Progress Note ---
Date of Service September 07, 2023 Assessment & Plan (1) Incisional hernia: Plan: POD#1 open ventral hernia repair with mesh Uncomfortable this AM 2/2 to pain Labs this AM are pending. Vitals show HRs 90-100s Abdominal binder in place. RONNY drain sanguineous 75cc noted Receiving IV morphine this AM and ativan overnight will adjust pain meds and add dilaudid SEED EXPERT, 1x dose of toradol, scheduled IV apap, and scheduled po ibuprofen Will f/u later this AM [facility] covering the wknd we changed his pain regiment this AM...doing much better. if he does ok will plan d/c tomorrow. pt to keep RONNY drain. Home on oxycodone and Ativan for spasms. Admission and Anticipated Discharge Date Admission Date: September 06, 2023 Subjective Patient reports having + pain this AM. Has been avoiding the IV morphine, took some ativan last night with some relief. Had some nausea this AM and took zofran. Physical Exam Physical Exam: awake, alert, appears in pain Respiratory: normal respiratory effort Gastrointestinal (Abdomen): + abdominal binder in place, RONNY drain sa nguinous 75 cc noted Results & Data Vital Signs (Past 12 Hours) Vital Signs Temp Pulse Pulse Resp BP Pulse Ox O2 Del Method 09/07/23 07:52 98.6 F 98 H 20 146/96 H 93 Room Air 09/07/23 03:33 98.6 F 107 H 16 135/89 94 Room Air 09/06/23 22:58 99.3 F 104 H 16 131/88 95 Room Air PG Care Time/CCT Total # of Minutes Spent Total Time Spent with Patient: Total time spent is greater than 50% in coordination of care (as documented) at patient's floor/unit and/or counseling patient: Coding Level of Care Code 05619 Post Operative Follow-Up Diagnoses Incisional hernia K43.2
[2023-09-07] MEDS ORDERED: NALOXONE HCL 0.4 MG/1 ML VIAL/CARP IV PRN (08:14)
[2023-09-07] MEDS: KETOROLAC TROMETHAMINE 15 MG/ML VIAL IV ONE (08:17)
[2023-09-07] MEDS: ACETAMINOPHEN 1,000 MG/100 ML VIAL IV SCH (08:38)
[2023-09-07 08:42] LABS: Basophils # (auto) 0.02 K/uL (0.00-0.20); Basophils % (auto) 0.2 %; Eosinophils # (auto) 0.01 K/uL (0.00-0.50); Eosinophils % (auto) 0.1 %; Hematocrit (blood only) 40.8 % (42.0-52.0); Hemoglobin 13.7 g/dl (14.0-18.0); Immature Granulocytes # (auto) 0.09 K/uL (0.01-0.20); Immature Granulocytes % (auto) 0.9 %; Lymphocytes # (auto) 1.21 K/uL (1.20-3.40); Mean Corpuscular Hemoglobin 29.7 pg (25.0-34.0); Mean Corpuscular Hgb Conc 33.6 g/dL (32.0-36.0); Mean Corpuscular Volume 88.3 fL (80.0-100.0); Mean Platelet Volume 11.1 fL (9.4-12.4); Monocytes # (auto) 0.95 K/uL (0.11-0.59); Monocytes % (auto) 9.4 %; Neutrophils % (auto) 77.4 %; Platelet Count 241 K/uL (130-400); RDW Coefficient of Variation 14.8 % (11.5-14.5); RDW Standard Deviation 47.1 fL (36.4-46.3); Red Blood Count 4.62 M/uL (4.70-6.10); White Blood Count 10.08 K/ul (4.8-10.8)
[2023-09-07] MEDS: HYDROmorphone PCA 30 MG/30 ML IV PRN (09:05)
[2023-09-07 09:06] LABS: BUN Creatinine Ratio 15.7 (10-20); Calcium 8.8 mg/dl (8.6-10.3); Est GFR (African American) 136.8 ml/min; Potassium 3.7 mmol/L (3.5-5.1)
[2023-09-07] MEDS: SODIUM CHLORIDE 0.9% 1,000 ML IV SCH (09:18)
[2023-09-07] MEDS: IBUPROFEN 600 MG TAB PO SCH (11:41)
[2023-09-08] MEDS: DOCUSATE SODIUM 100 MG CAP PO PRN (15:55)
--- NOTE | 2023-09-08 16:23 | Surgery Progress Note ---
Date of Service September 08, 2023 Assessment & Plan (1) Incisional hernia: Plan: POD#3 repair of incisional hernia with mesh. He is still requiring the PATCH WORKER for pain control. He is otherwise ambulating and tolerating a diet. I did add in Dulcolax to try to minimize the chance of an ileus and allow him to have a bowel movement. He we will wean the PATCH WORKER as tolerated and then hopefully will be able to be converted to p.o. pain medication in anticipation of discharge. Admission and Anticipated Discharge Date Admission Date: September 06, 2023 Subjective Overall he is improving. He is however still requiring the PATCH WORKER to control his pain. He is tolerating a diet. He has concerns about developing an ileus as he had developed one prior. He has not passed a bowel movement. He has no nausea. Physical Exam Constitutional: WD/WN, vitals as above Respiratory: normal respiratory effort, lungs clear to auscultation Cardiovascular: RRR, no murmur, no edema Gastrointestinal (Abdomen): Inspection/Auscultation: abdomen normal to inspection, + abdomen distended (mild), normal bowel sounds, + abdominal surgical incision (dressing dry) and + abdominal surgical drain present (serosanguinous) Percussion/Palpation: + abdomen tender (at incision) and abdomen soft Neurologic: awake; no focal motor deficits Psychiatric: A+Ox3, euthymic affect Results & Data Vital Signs (Past 12 Hours) Vital Signs Temp Pulse Resp BP Pulse Ox O2 Del Method 09/08/23 15:53 37.1 C 105 H 16 133/91 93 Room Air 09/08/23 10:30 37 C 106 H 16 121/85 92 Room Air 09/08/23 08:00 Room Air 09/08/23 07:25 37.1 C 101 H 16 147/102 H 93 Room Air
[2023-09-08] MEDS: bisacodyL 5 MG TABEC PO PRN (16:50)
--- NOTE | 2023-09-09 09:23 | Surgery Progress Note ---
Date of Service September 09, 2023 Assessment & Plan (1) Incisional hernia: Plan: POD#4 repair of incisional hernia with mesh. He is going to try to wean off the DAY CARE ATTENDANT today. He is otherwise ambulating and tolerating a diet. He has been taking Dulcolax but has not yet had a bowel movement. He is ambulating well. Discharge is pending his ability to wean off of the IV pain medication and onto oral pain medication. Admission and Anticipated Discharge Date Admission Date: September 06, 2023 Subjective He continues to pass gas. His abdomen feels less distended. His pain is slowly improving and he has been trying to not use the DAY CARE ATTENDANT. He is mainly relying on Tylenol and ibuprofen as much as possible. He is however still requiring the DAY CARE ATTENDANT on occasion. He denies any nausea or vomiting. Physical Exam Constitutional: WD/WN, vitals as above Respiratory: normal respiratory effort, lungs clear to auscultation Cardiovascular: RRR, no murmur, no edema Gastrointestinal (Abdomen): Inspection/Auscultation: abdomen normal to inspection, + abdomen distended (mild), normal bowel sounds, + abdominal surgical incision (dressing dry) and + abdominal surgical drain present (serosanguinous) Percussion/Palpation: + abdomen tender (at incision) and abdomen soft Neurologic: awake; no focal motor deficits Psychiatric: A+Ox3, euthymic affect Results & Data Vital Signs (Past 12 Hours) Vital Signs Temp Pulse Resp BP Pulse Ox O2 Del Method 09/09/23 08:00 Room Air 09/09/23 07:04 36.9 C 93 H 16 142/101 H 95 Room Air 09/09/23 04:16 37 C 98 H 18 142/91 H 93 Room Air 09/08/23 23:06 37.2 C 100 H 18 134/89 94 Room Air
[2023-09-09] MEDS ORDERED: oxyCODONE HCL IR 5 MG TAB (IMMEDIATE RELEASE) PO PRN ×2 (09:58)
--- NOTE | 2023-09-11 08:26 | Discharge Summary ---
Date of Service September 09, 2023 Admission HPI Per Admitting Provider Mich is here for repair of an incisional hernia. There is been no major changes to his health history since I had seen him last in the office. Principal Diagnosis Open Incisional Hernia Repair with Mesh Discharge Exam Constitutional WD/WN, vitals as above no acute distress and not ill appearing Eyes PERRL, conjunctivae normal, anicteric sclerae EOM intact bilaterally ENMT external ear and nose normal, oropharynx normal Ears: no hearing impairment Mouth: no dentition abnormality Neck trachea midline, no thyromegaly normal visual inspection Respiratory normal respiratory effort, lungs clear to auscultation normal respiratory effort; no respiratory distress and does not use accessory muscles Cardiovascular RRR, no murmur, no edema Rate/Rhythm: regular rate and regular rhythm Heart Sounds: no murmur Gastrointestinal (Abdomen) Inspection/Auscultation: abdomen normal to inspection, + abdomen distended (mild), normal bowel sounds, + abdominal surgical incision (dressing dry) and + abdominal surgical drain present (serosanguinous) Percussion/Palpation: + abdomen tender (at incision) and abdomen soft Skin no rashes, warm and dry Neurologic awake Psychiatric A+Ox3, euthymic affect Orientation: cooperative Discharge Data Allergies Allergy/AdvReac Type Severity Reaction Status Date / Time shellfish derived Allergy Unknown Migraine Verified 09/06/23 07:16 Sulfa (Sulfonamide Allergy Unknown Redness of Verified 09/06/23 07:16 Antibiotics) Skin lisinopril AdvReac Unknown Cough Verified 09/06/23 07:16 Procedures Performed Operation Date: 09/06/23 08:35 Actual Procedures p Open Incisional Hernia Repair with Mesh(Not Applicable) - Erasto Vazquez, Hospital Course (1) Incisional hernia: Patient underwent an elective Open Incisional Hernia Repair with Mesh on 09/06/[address] Vazquez. He was admitted to the hospital post operatively for care and observation. He was given an abdominal binder and a RONNY drain. On post operative day one he was tolerating a regular diet and he was given antispasm and pain medication. He spent the night for better pain control and was reassessed the following morning. On post operative day two he was given still tolerating a diet, ambulating without difficulty, was given a stool softener to assist with bowel function and was transitioned from intervenous analgesics to oral. On post operative day three he was taking oral pain medication, and was deemed ready for discharge. He was shown how to care for his RONNY drain and surgical site. He was given post operative discharge instructions, oral prescriptions for pain and muscle spasms, and verbalized follow up instructions. He remained stable throughout his entire stay and was discharged on 09/09/23. Total Time Total Time Spent Total Time Spent (In Minutes): 30 Discharge Plan Discharge Items Patient Disposition: Home - Self-Care Reason For Visit: Incisional Hernia Discharge Diagnosis: incisional hernia repair Activity: Per Instructions section Lifting: No more than 10 pounds Bathing Comment: may showe; no soaking in tubs/pools x 2 weeks Exercise/Sports: Wait until after follow-up appointment Driving/Machine Use: no driving until cleared by surgeon Non-emergency contact: Surgeon Call non-emergency contact if: you have any medication questions, your pain is not controlled, you have a fever, your temperature is above 101.5, your wound has increased redness, your wound has increased drainage and your wound pain has increased Follow-up/Referrals: Erasto Vazquez, [Surgeon] - (Please call to schedule follow up in clinic within 2 weeks) Arthur Farris MD [Primary Care Provider] - Diet: Regular Addtl Attending Provider Instructions: You have surgical woody in place that will be removed at one of your follow up appointments (usually around 2 weeks after surgery). You may keep a dry dressing over your incisions with dry gauze and medical tape, change daily and as needed. You have a surgical drain in place. Please care for the drain as you have been instructed prior to discharge from the hospital. Empty drain 2-3x/daily and record output. May keep a dry dressing over your drain site with gauze and medical tape changed daily Continue to wear your abdominal binder until your follow up in the office. You may take it off for showers or small breaks from it if needed. Pending Studies at Discharge: No Stand-Alone Forms: My [facility] [employer] Medications and DC Order Prescriptions: New oxycodone 5 mg tablet 5 - 10 mg PO .[id number] MDD no more than 6 tabs in 24hours PRN (Reason: pain) Qty: 30 0RF Rx Instructions: Take one to two tablets by mouth every 4-6 hours as needed for pain. lorazepam [Ativan] 0.5 mg tablet 0.5 mg PO Q8H PRN (Reason: muscle spasms, for initial therapy, max 3tab/day) Qty: 18 0RF Continued docusate sodium [Colace] 100 mg capsule 100 mg PO UD PRN (Reason: Constipation) multivitamin Tablet 1 tab PO QAM fexofenadine 180 mg Tablet 180 mg PO QAM hydrochlorothiazide 12.5 mg capsule 12.5 mg PO QAM montelukast 10 mg tablet 10 mg PO QAM losartan 100 mg tablet 100 mg PO QAM Kmzetdsdosn-Zfjmk-TED Complex [id number] mg Tablet 1 tab PO QAM acetaminophen 325 mg Tablet 650 mg PO Q4H PRN (Reason: fever or pain) Qty: 30 0RF magnesium 500 mg Tablet 500 mg PO QAM albuterol sulfate 90 mcg/actuation Hfa Aerosol Inhaler 2 puff INHALATION Q6H PRN (Reason: allergies/asthma) Patient Comments: rare Admission Data Admit Date/Time: 09/06/23 10:31 Attending Provider: Erasto Vazquez Admit Provider: Erasto Vazquez Primary Care Provider: Arthur Farris Other Interventions: Discharge Summary Assessment (RN) Last Done: 09/09/23 13:37 Coding Level of Care Code 65518 IN/OBS DISCH 30 MIN/LESS Diagnoses Incisional hernia K43.2
== END 2023-09-09 17:44 | disposition home or self-care (01) ==
LOC: ASU 06:44 → 3E 10:31 → INTOOBSV 10:31